=== PATIENT | female | born 1935 | race Caucasian/White ===

== ENCOUNTER 2018-03-28 12:07 | Inpatient (IN) | payer MEDICARE, BC ==
[~2018-03-28] VITALS: Ht 162.6 cm; Wt 88.6 kg
[2018-03-28] VITALS (7 sets, daily range): BP systolic 146–226; BP diastolic 46–105
[~2018-03-28 12:07] MED LIST: ALENDRONATE70 MG PO; ARTHRITIS PAIN650 MG PO; ATENOLOL25 MG PO; CALCIUM600 M2 PO; FLOVENT HFA110 MCG IN; FOLIC ACID1 MG PO; FUROSEMIDE20 MG PO; INDAPAMIDE2.5 MG PO; LOSARTAN POT50 MG PO; MELOXICAM15 MG PO; METHOTREXATE25 MG/ML IJ; MULT VITAMIN PO; TRAMADOL HCL50 MG PO; VESICARE5 MG PO
--- NOTE | 2018-03-28 12:09 | NUR ---
PT IMMEDIATELY TO CT FOR CT BRAIN D/T FALL STRIKING BACK OF HEAD AND ON BLOOD THINNER. PT ALERT AND ORIENTED X3. MAEW.DENIES LOSS OF SENSATION
--- NOTE | 2018-03-28 12:37 | NUR ---
PT ALERT AND RESPONSIVE. C/O PAIN TO POSTERIOR SCALP, LT ELBOW AND ACROSS POSTERIOR SHOULDERS
--- NOTE | 2018-03-28 13:28 | NUR ---
PT RESTING SUPINE IN BED WITH HOB ELEVATED WARM BLANKET FOR COMFORT. BUSINESS PROCESS COORDINATOR AWARE OF BP TREND AND WATCHFUL OF BP. PT HAS "SORENESS TO TOP OF SHOULDERS" AND POSTERIOR SCALP
[2018-03-28 13:33] LABS: HEMATOCRIT 42.7 % (37.0-47.0); IMMATURE GRANULOCYTES 0.7 % (0.0-5.0); MEAN CELL VOLUME 93.6 fL CALC (80.0-100.0); MEAN CORPUSCULAR HGB 30.7 pG CALC (26.0-32.0); MEAN CORPUSCULAR HGB CONC 32.8 g/L CALC (32.0-36.0); NEUT# 5.69 thou/uL (2.00-7.15); RED BLOOD COUNT 4.56 mill/uL (4.20-5.60); RED CELL DISTRI WIDTH 15.1 % (11.5-15.5)
[2018-03-28 13:42] LABS: ALBUMIN 4.3 g/dL (3.2-5.0); ALKALINE PHOSPHATASE 107 u/l (38-126); ANION GAP 15 (6-22 (CALC)); BILIRUBIN, TOTAL 0.7 mg/dL (0.0-1.4); BUN 19 mg/dL (8-23); BUN/CREATININE RATIO 32 (12-20 (CALC)); CARBON DIOXIDE 28 mmol/l (22-30); CHLORIDE 96 mmol/l (95-108); CREATININE 0.6 mg/dL (0.5-1.0); GFR > 60 ML/MIN (>=60 (CALC)); GFR FOR AFR.AMER. > 60 ML/MIN (>=60 (CALC)); MAGNESIUM 1.7 mg/dL (1.6-2.3); POTASSIUM 3.8 mmol/l (3.5-5.1); SGOT/AST 27 u/l (9-36); SODIUM 135 mmol/l (137-146); TOTAL PROTEIN 7.6 g/dL (6.3-8.2)
[2018-03-28 13:53] LABS: MYOGLOBIN 58 ng/mL (0 - 62)
[2018-03-28] MEDS ORDERED: TRAMADOL HCL50 MG PO (14:10)
[2018-03-28] MEDS ORDERED: VITAMIN B-12500 MCG PO (14:15)
[2018-03-28] MEDS ORDERED: FAMOTIDINE20 M1 PO (14:16)
[2018-03-28] MEDS ORDERED: SINGULAIR10 MG PO (14:17)
[2018-03-28] MEDS ORDERED: ATORVASTATIN CA10 MG PO (14:18)
[2018-03-28] MEDS ORDERED: COLACE100 MG PO (14:19)
--- NOTE | 2018-03-28 14:20 | NUR ---
PT CONTINUES TO BE ALERT AND APPROPRIATE,JOAN. NEURO WNL.
[2018-03-28] MEDS ORDERED: OXYBUTYNIN5 M1 PO (14:22)
[2018-03-28] MEDS ORDERED: PLAVIX75 MG PO (14:23)
[2018-03-28] MEDS ORDERED: FLOVENT DI50 MCG/BLI IN (14:25)
[2018-03-28] MEDS ORDERED: NITROFURANTOIN100 MG PO (14:26)
[2018-03-28] MEDS ORDERED: VITAMIN D31000 UNI1 PO (14:29)
[2018-03-28] MEDS ORDERED: METO25TAB PO (14:32)
[2018-03-28] MEDS ORDERED: KLOR-CON 1010 MEQ PO (14:33)
--- NOTE | 2018-03-28 15:02 | NUR ---
PT AWARE OF ADMIT ANND AGREEABLE TO SAME. WARM BLANKET FOR COMFORT
--- NOTE | 2018-03-28 15:20 | NUR ---
ASSISTED PT WITH REPOSITIONING D/T "CRAMP TO LT CALF". PT MORE COMFORTABLE AFTER STRETCHING LT FOOT.
--- NOTE | 2018-03-28 16:00 | NUR ---
CALLED REPOR TO [facility]
--- NOTE | 2018-03-28 16:15 | NUR ---
PT TRANSPORTED TO ICU VIA STRETCHER IN STABLE CONDITION ON CONTINUOUS MILLED RICE BROKER.
--- NOTE | 2018-03-28 16:21 | NUR ---
female pt received to ICU 5 (med surg overflow) via stretcher accompanied by Aleksandar Pulliam RN in stable condition; ambulatory to bed with steady gait; pt denies lightheadedness or dizziness; gait weak but noted steady; pt c/c of "a cold" for a couple weak and lightheadedness today resulting in fall hitting back of head; denies any n/v; pt with complaints of headache, neck pain, shoulder pain; alert and oriented; resp even and unlabored; lungs clear; skin color wnl; ra; bending press operator moist/loose cough; hr irreg; doppler pedal pulses; 2+ edema noted to ble; sr pac/pvc on monitor; abd soft with bs present; no bm noted per jingle writer; no urine to inspect at this time; pt admits to occasional urinary incont; brief cdi; #20 flushed and patent to rac; no redness or edema noted at site; plan of care/meds/ fall prec explained; call light within reach; will continue to monitor
--- NOTE | 2018-03-28 17:00 | NUR ---
Dr Amor notified per typewriter operator automatic of elevated bp; also informed per Xochilt Santiago med rec, pt has received toprol, cozaar and plavix; orders to be changed/placed
--- NOTE | 2018-03-28 17:13 | NUR ---
orthostatic bp's obtained and charted
--- NOTE | 2018-03-28 17:18 | NUR ---
pt transported to ct scan via wc accompanied by this health underwriter in stable condition;
--- NOTE | 2018-03-28 17:30 | NUR ---
pt returned to unit via wc accompanied by this policy writer typist in stable condition; monitoring attachments explained and reconnected
--- NOTE | 2018-03-28 18:04 | NUR ---
awake in bed; medicated with hydralazine iv for bp of 195/89; sr/pvcs on monitor; pt admits to slight back pain; repositioned; eating dinner; iv flushed and patent; call light within reach; will continue to monitor
[2018-03-28 18:32] LABS: URINE BILIRUBIN - DIPSTICK NEGATIVE (NEGATIVE); URINE BLOOD DIPSTICK NEGATIVE (NEGATIVE); URINE COLOR YELLOW; URINE GLUCOSE - DIPSTICK NEGATIVE (NEGATIVE); URINE KETONE NEGATIVE (NEGATIVE); URINE LEUK ESTERASE TRACE (NEGATIVE); URINE NITRITE - DIPSTICK NEGATIVE (Negative); URINE PROTEIN - DIPSTICK TRACE mg/dL (NEG-TRACE); URINE UROBILINOGEN - DIPSTICK 0.2 E.U./dL (0.2)
--- NOTE | 2018-03-28 19:10 | NUR ---
Dr Amor notified per handbook writer of pt complaints of pain; orders received and on chart
--- NOTE | 2018-03-28 19:15 | NUR ---
BEDSIDE REPORT RECEIVED FROM [facility]. PT RESTING IN BED SEMI FOWLERS; ALERT AND ORIENTED. C/O SEVERE PAIN TO NECK, UPPER BACK, AND BILATERAL SHOULDERS. DR. HAQUE RESTARTED HOME MED TRAMADOL 50MG; WILL ADMINISTER WHEN PROFILED. RESPIRATIONS EVEN AND UNLABORED ON ROOM AIR. PLAN OF CARE REVIEWED. PT ENCOURAGED TO VERBALIZE CONCERNS. STATES UNDERSTANDING. SAFETY MEASURES IN PLACE. CALL LIGHT WITHIN REACH.
--- NOTE | 2018-03-28 19:30 | NUR ---
BEDSIDE REPORT RECEIVED FROM [facility]. PT SITTING UP IN BED; ALERT AND ORIENTED. RESPIRATIONS EVEN AND UNLABORED ON ROOM AIR. STATES THAT HER ABDOMINAL PAIN IS COMING BACK; STATES THAT SHE WILL CALL WHEN SHE WANTS PAIN MEDICATION. PLAN OF CARE DISCUSSED. PT ENCOURAGED TO VERBALIZE CONCERNS. STATES UNDERSTANDING. SAFETY MEASURES IN PLACE. CALL LIGHT WITHIN REACH.
--- NOTE | 2018-03-28 20:06 | NUR ---
PT NOW REQUESTING PAIN AND NAUSEA MEDICATIONS.
--- NOTE | 2018-03-28 21:11 | NUR ---
PT UP TO BSC TO VOID; BRIEF PLACED PER REQUEST FOR URINARY INCONTINENCE. HS BLOOD PRESSURE MEDICATION ADMINISTERED. PRESSURE IS CURRENTLY 146/46 PULSE 84. PT STATES THAT WARM COMPRESS AND TRAMADOL ARE EFFECTIVE FOR NECK AND UPPER BACK PAIN; REQUESTS ANOTHER HEAT PACK BEFORE SLEEP.
[2018-03-29] VITALS (9 sets, daily range): BP systolic 144–193; BP diastolic 59–78
--- NOTE | 2018-03-29 00:20 | NUR ---
PT ASLEEP AT THIS TIME WITH NO SIGNS OF DISTRESS. RESPIRATIONS EVEN AND UNLABORED ON ROOM AIR. IV SITE APPEARS HEALTHY AND FLUSHES. PT STAND BY ASSIST TO BSC WITH OCCASIONAL INCONTINENCE. SINUS RHYTHM WITH PVC'S ON TELEMETRY. SAFETY MEASURES IN PLACE. CALL LIGHT WITHIN REACH.
--- NOTE | 2018-03-29 04:08 | NUR ---
PT RESTING IN BED WITH EYES CLOSED; AWAKENS SPONTANEOUSLY. NO ACUTE CHANGES IN CONDITION THROUGHOUT THE NIGHT. NO EPISODES OF SYNCOPE.
[2018-03-29 05:40] LABS: HEMATOCRIT 39.5 % (37.0-47.0); HEMOGLOBIN 13.3 g/dl (12.0-16.0); IMMATURE GRANULOCYTES 0.3 % (0.0-5.0); MEAN CELL VOLUME 92.5 fL CALC (80.0-100.0); MEAN CORPUSCULAR HGB 31.1 pG CALC (26.0-32.0); MEAN CORPUSCULAR HGB CONC 33.7 g/L CALC (32.0-36.0); NEUT# 5.7 thou/uL (2.00-7.15); RED BLOOD COUNT 4.27 mill/uL (4.20-5.60); RED CELL DISTRI WIDTH 14.8 % (11.5-15.5)
[2018-03-29 06:07] LABS: ALKALINE PHOSPHATASE 86 u/l (38-126); AMYLASE < 30 u/l (30-110); ANION GAP 13 (6-22 (CALC)); BILIRUBIN, TOTAL 0.7 mg/dL (0.0-1.4); BUN 12 mg/dL (8-23); BUN/CREATININE RATIO 27 (12-20 (CALC)); CARBON DIOXIDE 27 mmol/l (22-30); CHLORIDE 97 mmol/l (95-108); CREATININE 0.4 mg/dL (0.5-1.0); GFR > 60 ML/MIN (>=60 (CALC)); GFR FOR AFR.AMER. > 60 ML/MIN (>=60 (CALC)); LIPASE 28 u/l (23-300); MAGNESIUM 1.5 mg/dL (1.6-2.3); POTASSIUM 3.6 mmol/l (3.5-5.1); SGOT/AST 24 u/l (9-36); SODIUM 133 mmol/l (137-146); TOTAL PROTEIN 6.2 g/dL (6.3-8.2)
[2018-03-29 06:08] LABS: ALBUMIN 3.4 g/dL (3.2-5.0)
--- NOTE | 2018-03-29 06:22 | NUR ---
PT REQUESTS TO GET DRESSED AND WALK AROUND; ALSO REQUESTS PHONE TO CALL THE [facility]. PORTABLE PHONE GIVEN.
--- NOTE | 2018-03-29 07:24 | NUR ---
pt awake in bed; no apparent distress noted; assessment completed at this time; pt alert and oriented; denies pain at current; no n/v noted; no neuro deficits noted; resp even and unlabored; lungs clear; skin color pale; ra; hr irreg; strong pulses; 1+ edema noted to ble; sr with frequent pvc on monitor; abd soft with bs present; no bm noted per narrative writer; pt admits to voiding without pain or burning; voiding clear yellow urine; bsc; #20 flushed and patent to rac; no redness or edema noted at site; oral care per self; repositioned; bp elevated; plan of care/ am meds explained; call light within reach; will continue to monitor
--- NOTE | 2018-03-29 07:42 | NUR ---
bp elevated; am meds administered at this time; will continue to monitor
--- NOTE | 2018-03-29 08:02 | NUR ---
telegraphic typewriter installer spoke with Aleena Bermudez in regards to questionable egg allergy; Pharm informed of pt concerns; pt states eggs causes diarrhea but she is able to eat them if they are mixed or cooked in something; allergy not to be listed per Pharm
--- NOTE | 2018-03-29 10:07 | NUR ---
awake in bed; offers no complaints; no apparent distress noted; denies pain at current; iv intact and patent; sr with freq pvc on monitor; call light within reach; will continue to monitor
--- NOTE | 2018-03-29 10:50 | NUR ---
Dr Amor present at bedside to assess pt and discuss plan of care
--- NOTE | 2018-03-29 11:30 | NUR ---
16 Fr inserted x2 attempts using optoelectronic technician; immed return of clear dark yellow urine/ 600cc; ua sample sent; cath aggarwal placed; will continue to monitor
--- NOTE | 2018-03-29 11:49 | NUR ---
Dr Pena notified of consult by Dr Amor
[2018-03-29 12:00] LABS: URINE BILIRUBIN - DIPSTICK NEGATIVE (NEGATIVE); URINE BLOOD DIPSTICK NEGATIVE (NEGATIVE); URINE COLOR YELLOW; URINE GLUCOSE - DIPSTICK NEGATIVE (NEGATIVE); URINE KETONE NEGATIVE (NEGATIVE); URINE LEUK ESTERASE NEGATIVE (Negative); URINE NITRITE - DIPSTICK NEGATIVE (Negative); URINE PROTEIN - DIPSTICK TRACE mg/dL (NEG-TRACE); URINE SPECIFIC GRAVITY 1.015; URINE UROBILINOGEN - DIPSTICK 0.2 E.U./dL (0.2)
[2018-03-29 12:01] LABS: URINE CLARITY CLEAR
--- NOTE | 2018-03-29 12:30 | NUR ---
pt awake in bed; no apparent distress noted; pt offers no complaints; iv patent; abt infusing without complication; no redness or edema noted at site; castorena to gravity draining clear yellow urine; pt was not satified was lunch; peanut butter and jelly provided as per request; po fluids provided; will continue to monitor
--- NOTE | 2018-03-29 13:09 | NUR ---
warm compress applied to upper back for complaints of pain
--- NOTE | 2018-03-29 13:34 | NUR ---
daughter Raina called per this clinical writer as per request; daughter updated on poc including castorena insertion, bumex, abt for pneumonia; portable phone given to pt; will continue to monitor
--- NOTE | 2018-03-29 14:11 | NUR ---
awake in bed; offers no complaints; no apparent distress noted; iv intact; castorena to gravity; sr/pvc on monitor; call light within reach; will continue to monitor
--- NOTE | 2018-03-29 16:05 | NUR ---
awake in bed; no apparent distress noted; pt offers no complaints; iv intact; no redness or edema noted at site; castorena to gravity; sr/pvc on monitor; vs obtained; pbx technician present at bedside; call light within reach; will continue to monitor
--- NOTE | 2018-03-29 17:52 | NUR ---
awake in bed; offers no complaints; ate minimal dinner; pt states no apetite; iv intact; castorena to gravity; deny needs; call light within reach
--- NOTE | 2018-03-29 19:00 | NUR ---
PT SITTING UP IN BED WATCHING TV. PT IS ALERT AND ORIENTED X3. SHIFT ASSESSMENT COMPLETED AT THIS TIME. PLAN OF CARE REVIEWED WITH PATIENT. CALL LIGHT IN REACH. WILL CONTINUE TO MONITOR.
--- NOTE | 2018-03-29 21:15 | NUR ---
PT IS WATCHING TV W/LIGHTS ON LOW, NO S/O DISTRESS NOTED, DENIES ANY NEEDS AT THIS TIME. WILL CONTINUE TO MONITOR.
--- NOTE | 2018-03-29 22:32 | NUR ---
PT MEDICATED FOR BP 192/80 MANUAL, ORDERS PROVIDE. WILL CONTINUE TO MONITOR. FINN CATHETER PATENT AND DRAINING CLEAR YELLOW URINE. ASSISTED WITH PO FLUIDS, PT DENIES ANY OTHER NEEDS. CALL LIGHT AT SIDE.
[2018-03-30] VITALS (7 sets, daily range): BP systolic 133–176; BP diastolic 51–84
--- NOTE | 2018-03-30 00:10 | NUR ---
PT V/S ASSESSED, BP IS DOWN TO 160'S/80'S, WILL CONTINUE TO MONITOR. PT DENIES ANY OTHER NEEDS, PT ASSISTED IN REPOSITIONING IN BED. FINN CATHETER APPEARS PATENT AND TO BE DRAINING CLEAR YELLOW URINE.
--- NOTE | 2018-03-30 01:42 | NUR ---
PT APPEARS TO BE SLEEPING, NO S/O DISTRESS NOTED.
--- NOTE | 2018-03-30 04:49 | NUR ---
PT IV SITE DISLODGED, NEW SITE ACCESSED AND PT MEDICATED FOR BP AT THIS TIME.
[2018-03-30 06:03] LABS: HEMATOCRIT 39.3 % (37.0-47.0); HEMOGLOBIN 13.2 g/dl (12.0-16.0); IMMATURE GRANULOCYTES 0.5 % (0.0-5.0); MEAN CELL VOLUME 93.1 fL CALC (80.0-100.0); MEAN CORPUSCULAR HGB 31.3 pG CALC (26.0-32.0); MEAN CORPUSCULAR HGB CONC 33.6 g/L CALC (32.0-36.0); NEUT# 6.2 thou/uL (2.00-7.15); RED BLOOD COUNT 4.22 mill/uL (4.20-5.60)
[2018-03-30 06:21] LABS: ALBUMIN 3.4 g/dL (3.2-5.0); ALKALINE PHOSPHATASE 81 u/l (38-126); AMYLASE < 30 u/l (30-110); ANION GAP 13 (6-22 (CALC)); BILIRUBIN, TOTAL 1.1 mg/dL (0.0-1.4); BUN 12 mg/dL (8-23); BUN/CREATININE RATIO 30 (12-20 (CALC)); CARBON DIOXIDE 28 mmol/l (22-30); CHLORIDE 93 mmol/l (95-108); CREATININE 0.4 mg/dL (0.5-1.0); GFR > 60 ML/MIN (>=60 (CALC)); GFR FOR AFR.AMER. > 60 ML/MIN (>=60 (CALC)); LIPASE 20 u/l (23-300); MAGNESIUM 1.5 mg/dL (1.6-2.3); POTASSIUM 3.6 mmol/l (3.5-5.1); SGOT/AST 40 u/l (9-36); SODIUM 130 mmol/l (137-146); TOTAL PROTEIN 6.2 g/dL (6.3-8.2)
--- NOTE | 2018-03-30 07:15 | NUR ---
pt awake in bed; no apparent distress noted; pt offers no complaints; assessment completed at this time; pt alert; denies pain/ sob at current; no n/v noted; resp even and unlabored; lungs clear with rhonchi in bases; skin color pale; o2 per nc at 2L; hr irreg; strong pulses; 1+ edema noted to ble; sr freq pvc on monitor; abd soft with bs present; no bm noted per development writer; castorena to gravity draining clear dk yellow urine; cath strap intact; #22 in rh saline locked; no redness or edema noted at site; plan of care/ am meds explained; call light within reach; will continue to monitor
--- NOTE | 2018-03-30 09:20 | NUR ---
pt with complaints of upset stomach/nausea; emesis bag provded; thick clear phlegm noted to bag; pt refusing chair at this time; will continue to monitor
--- NOTE | 2018-03-30 09:38 | NUR ---
daughter Raina called this television script writer; passcode vierified; update provided; will return call to Raina with poc after MD rounds
--- NOTE | 2018-03-30 10:05 | NUR ---
awake in bed; admits to feeling better since coughing up sputum; up to chair; iv intact; sr/pvc on monitor; castorena to gravity; call light within reach; will continue to monitor
--- NOTE | 2018-03-30 11:15 | NUR ---
Dr Amor present at bedside to assess pt and discuss plan of care;
--- NOTE | 2018-03-30 12:10 | NUR ---
back to bed per pt request; no apparent distress noted; resp even and unlabored; iv flushed and patent; abt infusing without complication; no redness or edema noted at site; sr/pvc on monitor; castorena to gravity; call light within reach; will continue to monitor
--- NOTE | 2018-03-30 12:26 | NUR ---
daughter Raina called per play writer as per request; updated on plan of care
--- NOTE | 2018-03-30 14:00 | NUR ---
awake in bed; offers no complaints; sr/pvc on monitor; call light within reach; will continue to monitor
--- NOTE | 2018-03-30 15:08 | NUR ---
per Dr Pena's office, Dr Pena will see pt tomorrow
--- NOTE | 2018-03-30 15:37 | NUR ---
removed removed as per pt request; clear daniel urine noted to bag
--- NOTE | 2018-03-30 16:15 | NUR ---
awake in bed; no apparent distress noted; pt offers no complaints; iv intact; no redness or edema noted; sr/pvc on monitor; call light within reach; will continue to monitor
--- NOTE | 2018-03-30 18:00 | NUR ---
awake in bed eating dinner; offers no complaints; no apparent distress noted; call light within reach
--- NOTE | 2018-03-30 21:10 | NUR ---
awake. denies distress. no neuro changes. monitoring coordinator shows sinus rhythm freq pvcs. #22 rt wrist saline lock. po fluids taken well. hnv as of yet. fall precautions cont.
--- NOTE | 2018-03-30 21:40 | NUR ---
up to bsc. voided well.
--- NOTE | 2018-03-30 23:58 | NUR ---
eyes closed. no distress. monitor worker shows sinus rhythm freq pvcs.
[2018-03-31] VITALS (8 sets, daily range): BP systolic 128–188; BP diastolic 3–87
--- NOTE | 2018-03-31 02:00 | NUR ---
resting quietly. resps even & unlabored. no apparent distress.
--- NOTE | 2018-03-31 04:00 | NUR ---
eyes closed. no distress. monitoring coordinator shows sinus rhythm freq pvcs.
--- NOTE | 2018-03-31 05:10 | NUR ---
lab here. blood drawn.
[2018-03-31 05:52] LABS: HEMATOCRIT 38.8 % (37.0-47.0); HEMOGLOBIN 13.3 g/dl (12.0-16.0); IMMATURE GRANULOCYTES 0.4 % (0.0-5.0); MEAN CELL VOLUME 91.1 fL CALC (80.0-100.0); MEAN CORPUSCULAR HGB 31.2 pG CALC (26.0-32.0); MEAN CORPUSCULAR HGB CONC 34.3 g/L CALC (32.0-36.0); NEUT# 6.57 thou/uL (2.00-7.15); RED BLOOD COUNT 4.26 mill/uL (4.20-5.60); RED CELL DISTRI WIDTH 14.5 % (11.5-15.5)
[2018-03-31 06:22] LABS: ALBUMIN 3.4 g/dL (3.2-5.0); ALKALINE PHOSPHATASE 74 u/l (38-126); ANION GAP 14 (6-22 (CALC)); BILIRUBIN, TOTAL 0.7 mg/dL (0.0-1.4); BUN 17 mg/dL (8-23); BUN/CREATININE RATIO 36 (12-20 (CALC)); CARBON DIOXIDE 26 mmol/l (22-30); CHLORIDE 92 mmol/l (95-108); CREATININE 0.5 mg/dL (0.5-1.0); GFR > 60 ML/MIN (>=60 (CALC)); GFR FOR AFR.AMER. > 60 ML/MIN (>=60 (CALC)); MAGNESIUM 1.6 mg/dL (1.6-2.3); POTASSIUM 3.5 mmol/l (3.5-5.1); SGOT/AST 23 u/l (9-36); SODIUM 129 mmol/l (137-146); TOTAL PROTEIN 6.1 g/dL (6.3-8.2)
--- NOTE | 2018-03-31 07:51 | NUR ---
ASSESSMENT IS COMPLETED: IV SITE IS FREE FROM REDNESS OR EDMEA HR IS REG,PULSES ARE STRONG X4, ABD IS SOFT WITH ACTIVE BS. BREATH SOUNDS ARE CLEAR AND DIMINSHED. HAS A COUGH SOUNDS MORE IN THE THROAT. CONTINUE TO OSBERVE AND MONITOR.
--- NOTE | 2018-03-31 10:47 | NUR ---
PT'S DAUGHTER CALLED TO INQUIRE HOW HER MOTHER IS. EXPLAINED DR IS HERE AND MAIN C/O COUGH. WILL CALL WHEN FIND OUT WHAT THE PLAN IS.
--- NOTE | 2018-03-31 12:00 | NUR ---
PT IS RELAXING IN BED WITH NO DISTRESS NOTED. IV SITE IS FREE FROM REDNESS OR EDEMA. CONITNUE TO OBSERVE AND MONITOR.
--- NOTE | 2018-03-31 16:00 | NUR ---
PT IS RELAXING IN THE CHAIR, NO DISTRESS NOTED. IV SITE IS FREE FROM REDNESS OR EDEMA. CONTINUE TO OBSERVE AND MONITOR.
--- NOTE | 2018-03-31 16:48 | NUR ---
TRANSPORTED PT TO MED SURG, VIA WC WITH MACHINE CLERICAL VERIFIER ACCOMPANYING. IV SITE INTACT. CONTINUE TO OBSERVE AND MONITOR.
--- NOTE | 2018-03-31 16:52 | NUR ---
SPOKE WITH PT'S DAUGHTER TO INFORM THAT PT WASS MOVED TO ROOM 281
--- NOTE | 2018-03-31 17:03 | NUR ---
PT ARRIVED TO FLOOR FROM ICU VIA W/C ACCOMPANIED BY PAULETTE CANAS; WT AND VITALS OBTAINED; PT A/O; DENIES ANY PAIN; LUNGS DIMINISHED IN BASES; IRR HEART BEAT; PULSES STRONG; ACTIVE BOWEL SOUNDS; BM TODAY; # 22RH, NS@75CC/HR; IV SITE APPEARS HEALTHY; 1+ EDEMA TO BLE; PRODUCTIVE COUGH NOTED BUT NO SPUTUM; SAFETY PRECAUTION REINFORCE; CALL RDZ IN REACH.
--- NOTE | 2018-03-31 19:00 | NUR ---
RECEIVED REPORT FROM DAY NURSE. PT RESTING IN BED WATCHING TV. NO NEEDS AT THIS TIME. CALL RDZ IN REACH. WILL CONTINUE TO MONITOR.
--- NOTE | 2018-03-31 21:21 | NUR ---
PT USED BATHROOM CALL RDZ TO BE ASSISTED BACK TO BED. AMBULATES WITH WALKER. PT IS A&O x3. ASSESMENT COMPLETED AT THIS TIME. LUNG SOUNDS CLEAR/DIMINISHED, BOWEL SOUNDS ACTIVE, HEART RATE NORMAL, PTODUCTIVE COUGH NOTED. NO SWELLING OR EDEMA NOTED. NO NEEDS FROM PT AT THIS TIME. CALL RDZ IN REACH. WILL CONTINUE TO MONITOR.
--- NOTE | 2018-04-01 | NUR ---
PT RESTING QUIETLY IN BED NO S/S OF DISTRESS NOTED. CALL RDZ IN REACH. WILL CONTINUE TO MONITOR.
[2018-04-01 04:00] VITALS: BP 174/85
--- NOTE | 2018-04-01 04:00 | NUR ---
PT C/O NOT BEING ABLE TO SLEEP LAST NIGHT. PT REPOSITIONED IN BED. RESTING NOW WITH EYES CLOSED. CALL RDZ IN REACH. WILL CONTINUE TO MONITOR.
[2018-04-01 04:05] VITALS: BP 190/88
[2018-04-01 04:10] VITALS: BP 178/87
--- NOTE | 2018-04-01 06:53 | NUR ---
PT MEDICATED FOR BP 169/76, HR80
--- NOTE | 2018-04-01 07:00 | NUR ---
BC CHANGE REPORT, PT AWAKE ALERT AND ORIENTED SITTING UP IN BED, STATED SHE FEELS MUCH BETTER TODAY THAN SHE DID YESTERDAY BUT STATED SHE WAS VERY UNCOMFORTABLE IN BED, ASSISTED TO RECLINER, STATED SHE FELT MUCH MOR COMFORTABLE, SET UP FOR MEAL, IVF INFUSING, TELE MONITOR IN PLACE, CALL RDZ IN REACH.
[2018-04-01 07:04] LABS: HEMOGLOBIN 13.1 g/dl (12.0-16.0); IMMATURE GRANULOCYTES 0.6 % (0.0-5.0); MEAN CELL VOLUME 90.5 fL CALC (80.0-100.0); MEAN CORPUSCULAR HGB 31.2 pG CALC (26.0-32.0); MEAN CORPUSCULAR HGB CONC 34.5 g/L CALC (32.0-36.0); NEUT# 7.49 thou/uL (2.00-7.15); RED BLOOD COUNT 4.2 mill/uL (4.20-5.60); RED CELL DISTRI WIDTH 14.5 % (11.5-15.5)
[2018-04-01 07:23] LABS: ALBUMIN 3.4 g/dL (3.2-5.0); ALKALINE PHOSPHATASE 80 u/l (38-126); ANION GAP 14 (6-22 (CALC)); BILIRUBIN, TOTAL 0.4 mg/dL (0.0-1.4); BUN 19 mg/dL (8-23); BUN/CREATININE RATIO 39 (12-20 (CALC)); CARBON DIOXIDE 25 mmol/l (22-30); CHLORIDE 95 mmol/l (95-108); CREATININE 0.5 mg/dL (0.5-1.0); GFR > 60 ML/MIN (>=60 (CALC)); GFR FOR AFR.AMER. > 60 ML/MIN (>=60 (CALC)); MAGNESIUM 1.8 mg/dL (1.6-2.3); POTASSIUM 3.9 mmol/l (3.5-5.1); SGOT/AST 20 u/l (9-36); SODIUM 130 mmol/l (137-146); TOTAL PROTEIN 6.1 g/dL (6.3-8.2)
[2018-04-01 08:12] VITALS: BP 153/77
[2018-04-01 09:49] VITALS: BP 124/55
[2018-04-01 11:00] VITALS: BP 129/84
--- NOTE | 2018-04-01 12:00 | NUR ---
HAVING MEAL BUT STATED SHE IS NOT HUNGRY AND WILL ONLY HAVE SMALL PORTION, ALL NEEDS ADDRESSED, CALL RDZ IN REACH.
[2018-04-01] MEDS ORDERED: MEDDOSEPAK PO (14:55)
[2018-04-01] MEDS ORDERED: LEVAQUIN750 M1 PO (14:55)
--- NOTE | 2018-04-01 15:02 | NUR ---
Discharge instructions given. Patient verbalizes understanding of same. Discharged in good condition via Wheelchair to ACLF with *Other. All belongings sent with pt. STAFF FROM [facility] RECEIVED PT TO TRANSPORT HOME.
== END 2018-04-01 15:00 | DRG 190 ==
LOC: ED 12:07 → ED-I 15:04 → ED 15:29 → ICU 15:30 → MS2 03-31 16:46
PROVIDERS: ADMIT Internal Medicine Nephrology; ATTEND Internal Medicine Nephrology
PROC: 0T9B70Z Drainage of Bladder with Drainage Device, Via Natural or Artificial Opening (ICD-10-PCS; principal; 2018-03-29)
DX: J44.1 Chronic obstructive pulmonary disease with (acute) exacerbation (principal); J18.9 Pneumonia, unspecified organism; J44.0 Chronic obstructive pulmonary disease with (acute) lower respiratory infection; I49.3 Ventricular premature depolarization; I10 Essential (primary) hypertension; M06.9 Rheumatoid arthritis, unspecified; E78.5 Hyperlipidemia, unspecified; E55.9 Vitamin D deficiency, unspecified; R32 Unspecified urinary incontinence; J84.10 Pulmonary fibrosis, unspecified; E66.9 Obesity, unspecified; R09.02 Hypoxemia; R06.89 Other abnormalities of breathing; Y95 Nosocomial condition; Z68.34 Body mass index [BMI] 34.0-34.9, adult; Z79.02 Long term (current) use of antithrombotics/antiplatelets; Z86.73 Personal history of transient ischemic attack (TIA), and cerebral infarction without residual deficits; Z79.899 Other long term (current) drug therapy

== ENCOUNTER 2018-08-18 05:41 | Emergency (ER) | payer MEDICARE, BC ==
[~2018-08-18] VITALS: Ht 162.6 cm; Wt 91.8 kg
[~2018-08-18 05:41] MED LIST changes: +ATORVASTATIN CA10 MG PO; +COLACE100 MG PO; +FAMOTIDINE20 M1 PO; +FLOVENT DI50 MCG/BLI IN; +KLOR-CON 1010 MEQ PO; +LEVAQUIN750 M1 PO; +MEDDOSEPAK PO; +METO25TAB PO; +NITROFURANTOIN100 MG PO; +OXYBUTYNIN5 M1 PO; +PLAVIX75 MG PO; +SINGULAIR10 MG PO; +VITAMIN B-12500 MCG PO; +VITAMIN D31000 UNI1 PO
[2018-08-18] MEDS ORDERED: LORATADINE10 M1 PO (06:00)
[2018-08-18] MEDS ORDERED: MACRODANTIN50 MG PO (06:07)
[2018-08-18] MEDS ORDERED: GABAPENTIN100 MG PO (06:13)
[2018-08-18] MEDS ORDERED: SPIRONOLACTONE50 MG PO (06:17)
[2018-08-18] MEDS ORDERED: KEFLEX500 MG PO (06:19)
[2018-08-18 07:27] LABS: HEMATOCRIT 37.1 % (37.0-47.0); HEMOGLOBIN 12.1 g/dl (12.0-16.0); IMMATURE GRANULOCYTES 0.7 % (0.0-5.0); MEAN CELL VOLUME 91.2 fL CALC (80.0-100.0); MEAN CORPUSCULAR HGB 29.7 pG CALC (26.0-32.0); MEAN CORPUSCULAR HGB CONC 32.6 g/L CALC (32.0-36.0); NEUT# 6.76 thou/uL (2.00-7.15); RED BLOOD COUNT 4.07 mill/uL (4.20-5.60); RED CELL DISTRI WIDTH 16.2 % (11.5-15.5)
[2018-08-18 07:42] LABS: BUN 8 mg/dL (8-23); BUN/CREATININE RATIO 19 (12-20 (CALC)); CARBON DIOXIDE 28 mmol/l (22-30); CHLORIDE 92 mmol/l (95-108); CREATININE 0.4 mg/dL (0.5-1.0); GFR > 60 ML/MIN (>=60 (CALC)); GFR FOR AFR.AMER. > 60 ML/MIN (>=60 (CALC)); SODIUM 130 mmol/l (137-146)
[2018-08-18 07:43] LABS: ANION GAP 15 (6-22 (CALC)); POTASSIUM 4.5 mmol/l (3.5-5.1)
[2018-08-18 08:40] VITALS: BP 178/87
== END 2018-08-18 08:40 | disposition home or self-care (01) ==
LOC: ED 05:41
PROVIDERS: Family Medicine
DX: S06.0X0A Concussion without loss of consciousness, initial encounter (principal); S39.012A Strain of muscle, fascia and tendon of lower back, initial encounter; I10 Essential (primary) hypertension; M06.9 Rheumatoid arthritis, unspecified; W01.0XXA Fall on same level from slipping, tripping and stumbling without subsequent striking against object, initial encounter; Y92.002 Bathroom of unspecified non-institutional (private) residence as the place of occurrence of the external cause; Z86.73 Personal history of transient ischemic attack (TIA), and cerebral infarction without residual deficits; Z79.02 Long term (current) use of antithrombotics/antiplatelets

== ENCOUNTER 2018-09-07 08:55 | Inpatient (IN) | payer MEDICARE, BC ==
[2018-09-07] VITALS (28 sets, daily range): BP systolic 132–181; BP diastolic 56–90
[~2018-09-07] VITALS: Ht 157.5 cm; Wt 89.9 kg
[~2018-09-07 08:55] MED LIST changes: +GABAPENTIN100 MG PO; +KEFLEX500 MG PO; +LORATADINE10 M1 PO; +MACRODANTIN50 MG PO; +SPIRONOLACTONE50 MG PO
[2018-09-07 09:19] LABS: HEMATOCRIT 37.4 % (37.0-47.0); HEMOGLOBIN 12.2 g/dl (12.0-16.0); IMMATURE GRANULOCYTES 0.7 % (0.0-5.0); MEAN CELL VOLUME 92.1 fL CALC (80.0-100.0); MEAN CORPUSCULAR HGB CONC 32.6 g/L CALC (32.0-36.0); NEUT# 6.58 thou/uL (2.00-7.15); RED BLOOD COUNT 4.06 mill/uL (4.20-5.60); RED CELL DISTRI WIDTH 17.6 % (11.5-15.5)
[2018-09-07] MEDS ORDERED: MECLIZINE25 MG PO (09:19)
[2018-09-07 10:07] LABS: ANION GAP 14 (6-22 (CALC)); BUN 10 mg/dL (8-23); BUN/CREATININE RATIO 19 (12-20 (CALC)); CARBON DIOXIDE 30 mmol/l (22-30); CHLORIDE 87 mmol/l (95-108); CREATININE 0.6 mg/dL (0.5-1.0); GFR > 60 ML/MIN (>=60 (CALC)); GFR FOR AFR.AMER. > 60 ML/MIN (>=60 (CALC)); POTASSIUM 3.9 mmol/l (3.5-5.1); SODIUM 128 mmol/l (137-146)
[2018-09-08] VITALS (10 sets, daily range): BP systolic 101–168; BP diastolic 48–81
[2018-09-09 04:40] VITALS: BP 174/74
[2018-09-09 05:59] LABS: HEMATOCRIT 35.9 % (37.0-47.0); HEMOGLOBIN 11.9 g/dl (12.0-16.0); IMMATURE GRANULOCYTES 0.5 % (0.0-5.0); MEAN CELL VOLUME 91.6 fL CALC (80.0-100.0); MEAN CORPUSCULAR HGB 30.4 pG CALC (26.0-32.0); MEAN CORPUSCULAR HGB CONC 33.1 g/L CALC (32.0-36.0); NEUT# 6.65 thou/uL (2.00-7.15); RED BLOOD COUNT 3.92 mill/uL (4.20-5.60); RED CELL DISTRI WIDTH 17.8 % (11.5-15.5)
[2018-09-09 06:04] LABS: ALBUMIN 3.3 g/dL (3.2-5.0); ALKALINE PHOSPHATASE 99 u/l (38-126); ANION GAP 13 (6-22 (CALC)); BILIRUBIN, TOTAL 0.8 mg/dL (0.0-1.4); BUN 10 mg/dL (8-23); BUN/CREATININE RATIO 25 (12-20 (CALC)); CARBON DIOXIDE 27 mmol/l (22-30); CHLORIDE 91 mmol/l (95-108); CREATININE 0.4 mg/dL (0.5-1.0); GFR > 60 ML/MIN (>=60 (CALC)); GFR FOR AFR.AMER. > 60 ML/MIN (>=60 (CALC)); MAGNESIUM 1.5 mg/dL (1.6-2.3); POTASSIUM 3.7 mmol/l (3.5-5.1); SGOT/AST 30 u/l (9-36); SODIUM 127 mmol/l (137-146); TOTAL PROTEIN 6.4 g/dL (6.3-8.2)
[2018-09-09 09:01] VITALS: BP 117/67
[2018-09-09 15:00] VITALS: BP 139/72
[2018-09-09 19:12] VITALS: BP 129/71
[2018-09-10 03:43] VITALS: BP 100/51
[2018-09-10 08:05] VITALS: BP 155/53
[2018-09-10 11:08] LABS: ANION GAP 15 (6-22 (CALC)); BUN 17 mg/dL (8-23); BUN/CREATININE RATIO 32 (12-20 (CALC)); CARBON DIOXIDE 25 mmol/l (22-30); CHLORIDE 90 mmol/l (95-108); CREATININE 0.5 mg/dL (0.5-1.0); GFR > 60 ML/MIN (>=60 (CALC)); GFR FOR AFR.AMER. > 60 ML/MIN (>=60 (CALC)); POTASSIUM 4.1 mmol/l (3.5-5.1); SODIUM 127 mmol/l (137-146)
[2018-09-10 13:04] VITALS: BP 109/63
[2018-09-10 14:55] VITALS: BP 103/51
[2018-09-10 19:04] VITALS: BP 149/52
[2018-09-10 22:27] LABS: URINE BILIRUBIN - DIPSTICK NEGATIVE (NEGATIVE); URINE BLOOD DIPSTICK NEGATIVE (NEGATIVE); URINE COLOR YELLOW; URINE GLUCOSE - DIPSTICK NEGATIVE (NEGATIVE); URINE KETONE NEGATIVE (NEGATIVE); URINE LEUK ESTERASE TRACE (NEGATIVE); URINE NITRITE - DIPSTICK NEGATIVE (Negative); URINE PH 5.5 (4.5-8.0); URINE PROTEIN - DIPSTICK TRACE mg/dL (NEG-TRACE); URINE UROBILINOGEN - DIPSTICK 0.2 E.U./dL (0.2)
[2018-09-11 04:18] VITALS: BP 142/62
[2018-09-11 05:27] LABS: HEMATOCRIT 32.9 % (37.0-47.0); IMMATURE GRANULOCYTES 0.7 % (0.0-5.0); MEAN CELL VOLUME 91.6 fL CALC (80.0-100.0); MEAN CORPUSCULAR HGB 30.6 pG CALC (26.0-32.0); MEAN CORPUSCULAR HGB CONC 33.4 g/L CALC (32.0-36.0); NEUT# 7.38 thou/uL (2.00-7.15); RED BLOOD COUNT 3.59 mill/uL (4.20-5.60); RED CELL DISTRI WIDTH 18.2 % (11.5-15.5)
[2018-09-11 05:46] LABS: ALKALINE PHOSPHATASE 96 u/l (38-126); ANION GAP 13 (6-22 (CALC)); BILIRUBIN, TOTAL 0.7 mg/dL (0.0-1.4); BUN 16 mg/dL (8-23); BUN/CREATININE RATIO 32 (12-20 (CALC)); CARBON DIOXIDE 27 mmol/l (22-30); CHLORIDE 91 mmol/l (95-108); CREATININE 0.5 mg/dL (0.5-1.0); GFR > 60 ML/MIN (>=60 (CALC)); GFR FOR AFR.AMER. > 60 ML/MIN (>=60 (CALC)); MAGNESIUM 1.7 mg/dL (1.6-2.3); POTASSIUM 4.1 mmol/l (3.5-5.1); SGOT/AST 16 u/l (9-36); SODIUM 127 mmol/l (137-146)
[2018-09-11 07:50] VITALS: BP 145/62
[2018-09-11 16:00] VITALS: BP 111/56
[2018-09-11 19:30] VITALS: BP 149/70
[2018-09-12 03:50] VITALS: BP 119/50
[2018-09-12 05:20] LABS: HEMATOCRIT 33.9 % (37.0-47.0); HEMOGLOBIN 11.2 g/dl (12.0-16.0); IMMATURE GRANULOCYTES 0.5 % (0.0-5.0); MEAN CELL VOLUME 91.6 fL CALC (80.0-100.0); MEAN CORPUSCULAR HGB 30.3 pG CALC (26.0-32.0); NEUT# 6.44 thou/uL (2.00-7.15); RED BLOOD COUNT 3.7 mill/uL (4.20-5.60); RED CELL DISTRI WIDTH 18.6 % (11.5-15.5)
[2018-09-12 05:36] LABS: ALBUMIN 3.3 g/dL (3.2-5.0); ALKALINE PHOSPHATASE 95 u/l (38-126); ANION GAP 15 (6-22 (CALC)); BILIRUBIN, TOTAL 0.6 mg/dL (0.0-1.4); BUN 15 mg/dL (8-23); BUN/CREATININE RATIO 29 (12-20 (CALC)); CARBON DIOXIDE 25 mmol/l (22-30); CHLORIDE 92 mmol/l (95-108); CREATININE 0.5 mg/dL (0.5-1.0); GFR > 60 ML/MIN (>=60 (CALC)); GFR FOR AFR.AMER. > 60 ML/MIN (>=60 (CALC)); MAGNESIUM 1.7 mg/dL (1.6-2.3); POTASSIUM 4.4 mmol/l (3.5-5.1); SGOT/AST 17 u/l (9-36); SODIUM 127 mmol/l (137-146); TOTAL PROTEIN 6.4 g/dL (6.3-8.2)
[2018-09-12 08:55] VITALS: BP 112/55
[2018-09-12 09:01] VITALS: BP 112/55
[2018-09-12] MEDS ORDERED: SOD CHLORIDE1 GM PO (14:03)
== END 2018-09-12 14:50 | disposition home health service (06) | DRG 281 ==
LOC: ED 08:55 → ED-I 10:27 → ED 10:52 → ICU 10:53 → MS2 09-08 14:15
PROVIDERS: Family Medicine; Nurse Practitioner Family; ADMIT Internal Medicine Nephrology; ATTEND Internal Medicine Nephrology
DX: I21.4 Non-ST elevation (NSTEMI) myocardial infarction (principal); E22.2 Syndrome of inappropriate secretion of antidiuretic hormone; I49.3 Ventricular premature depolarization; I10 Essential (primary) hypertension; M06.9 Rheumatoid arthritis, unspecified; E78.5 Hyperlipidemia, unspecified; F03.90 Unspecified dementia, unspecified severity, without behavioral disturbance, psychotic disturbance, mood disturbance, and anxiety; D63.8 Anemia in other chronic diseases classified elsewhere; R32 Unspecified urinary incontinence; Z51.5 Encounter for palliative care; Z66 Do not resuscitate; Z86.73 Personal history of transient ischemic attack (TIA), and cerebral infarction without residual deficits; Z87.891 Personal history of nicotine dependence; Z79.899 Other long term (current) drug therapy; Z79.02 Long term (current) use of antithrombotics/antiplatelets
CPT/HCPCS: J1644; J1650

== ENCOUNTER 2018-10-09 08:54 | Inpatient (IN) | payer MEDICARE, BC ==
[~2018-10-09] VITALS: Ht 162.6 cm; Wt 77.7 kg
[~2018-10-09 08:54] MED LIST changes: +MECLIZINE25 MG PO; +SOD CHLORIDE1 GM PO
--- NOTE | 2018-10-09 08:59 | NUR ---
PT TO ROOM 12 VIA EMS STRETCHER, MAX ASSIST TO STRETCHER, PT ALERT AND ORIENTED TO NAMA NAD PLACE BUT UNSURE OF AND YEAR, (NORM PER PREVIOUS VISIT) COMFORT MEASURES PROVIDED, CALLED IN COMPLAINT WAS CP AND "NOT ACTING LIKE HERSELF" PT DENIES CP AT HSI TIME AND DOES NOT RECALL COMPLAINING OF THAT THIS AM.
--- NOTE | 2018-10-09 09:15 | NUR ---
PT HAS MOIST COUGH STATES ITS PRODUCTIVE AT TIMES.
[2018-10-09] MEDS ORDERED: FUROSEMIDE20 MG PO (09:38)
--- NOTE | 2018-10-09 09:56 | NUR ---
O2 OFF FOR ABG REQUESTED BY , PT DENIES WEARING O2 AT HOME.
[2018-10-09 10:16] LABS: HEMATOCRIT 42.7 % (37.0-47.0); HEMOGLOBIN 13.2 g/dl (12.0-16.0); IMMATURE GRANULOCYTES 0.7 % (0.0-5.0); MEAN CELL VOLUME 97.3 fL CALC (80.0-100.0); MEAN CORPUSCULAR HGB 30.1 pG CALC (26.0-32.0); MEAN CORPUSCULAR HGB CONC 30.9 g/L CALC (32.0-36.0); NEUT# 10.5 thou/uL (2.00-7.15); RED BLOOD COUNT 4.39 mill/uL (4.20-5.60)
--- NOTE | 2018-10-09 10:21 | NUR ---
O2 PLACED BACK AT 2L VIA NC, ABG COMPLETED, IVF INFUSING WILL CONTINUE TO MONITOR.
[2018-10-09 11:04] LABS: ALBUMIN 3.9 g/dL (3.2-5.0); ALKALINE PHOSPHATASE 124 u/l (38-126); BILIRUBIN, TOTAL 0.8 mg/dL (0.0-1.4); BUN 31 mg/dL (8-23); BUN/CREATININE RATIO 40 (12-20 (CALC)); CHLORIDE 104 mmol/l (95-108); CREATININE 0.8 mg/dL (0.5-1.0); GFR > 60 ML/MIN (>=60 (CALC)); GFR FOR AFR.AMER. > 60 ML/MIN (>=60 (CALC)); LIPASE 33 u/l (23-300); POTASSIUM 4.2 mmol/l (3.5-5.1); SODIUM 142 mmol/l (137-146); TOTAL PROTEIN 7.5 g/dL (6.3-8.2)
[2018-10-09 11:08] LABS: ANION GAP 18 (6-22 (CALC)); CARBON DIOXIDE 24 mmol/l (22-30); SGOT/AST 41 u/l (9-36)
--- NOTE | 2018-10-09 11:41 | NUR ---
PT STRAIGHT CATH'D USING STERILE TECHNIQUE FOR URINE SPECIMEN, PT TOLERATED WELL, CONTINUES TO HAVE 3-4 EDEMA IN BLE. REPOSITIONED FOR COMFORT, CALL RDZ WITHIN REACH
--- NOTE | 2018-10-09 12:40 | NUR ---
PT FOUND WITH EQUIPMENT OFF AND IV ACCESS OUT, PT REORIENTED, AND CALL RDZ WITHIN REACH
--- NOTE | 2018-10-09 12:46 | NUR ---
SBAR PRINTED TO FLOOR
--- NOTE | 2018-10-09 12:50 | NUR ---
PT HOLLERS OUT AT ANYONE WHO PASSESS THE ROOM, DOES NOT REORIENTE EASILY STATES THAT WE ARE CONSPIRING AGAINST HER AND THAT WE ARE GONNA KILL HER ETC... ATTEMPTS TO REORIENT NOT SUCCESSFUL, UANBLE TO ATTACHMONITORING EQUIPMENT AT THIS TIME PT REFUSES AND BECOMES COMBATIVE WHEN ATTEMPTING TO APPLY.
[2018-10-09 13:12] LABS: URINE BILIRUBIN - DIPSTICK NEGATIVE (NEGATIVE); URINE BLOOD DIPSTICK NEGATIVE (NEGATIVE); URINE COLOR YELLOW; URINE GLUCOSE - DIPSTICK NEGATIVE (NEGATIVE); URINE KETONE TRACE mg/dL (NEGATIVE); URINE LEUK ESTERASE NEGATIVE (Negative); URINE NITRITE - DIPSTICK NEGATIVE (Negative); URINE PROTEIN - DIPSTICK TRACE mg/dL (NEG-TRACE); URINE SPECIFIC GRAVITY 1.015; URINE UROBILINOGEN - DIPSTICK 0.2 E.U./dL (0.2)
[2018-10-09 13:13] LABS: URINE CLARITY CLEAR
--- NOTE | 2018-10-09 13:30 | NUR ---
PT RESTING WITH EYES CLOSED AT THIS TIME.
--- NOTE | 2018-10-09 13:47 | NUR ---
PT RESTING CALLS OUT OCCASIONALLY CONTINUES TO REFUSE TO ALLOW STAFF TO APPLY MONITORING EQUIPMENT OR START AN IV
--- NOTE | 2018-10-09 15:09 | NUR ---
SPOKE WITH PT REGARDING TAKING HER MEDICATIONS ORDERED BY MD, PT REFUSED TO TAKE FOR THIS NURSE WILL TRY AGAIN LATER
--- NOTE | 2018-10-09 15:40 | NUR ---
PT RESTING WITH EYES CLOSED, CALL RDZ WITHIN REACH
--- NOTE | 2018-10-09 16:38 | NUR ---
PT MORE COOPERATIVE A THIS TIME, ALLOWS IV INSERTION INTO LEFT AC, WILL CONTINUE TO MONITOR.
--- NOTE | 2018-10-09 16:39 | NUR ---
AT BEDSIDE FOR EVAL.
--- NOTE | 2018-10-09 17:00 | NUR ---
REPORT CALLED TO MILAGROS LEE ON MED SURG ROOM 291 AND TELE [address] ASSIGNED
--- NOTE | 2018-10-09 17:00 | NUR ---
PT TO ROOM VIA STRETCHER ACCOMPANIED BY STAFF; MAX 2 PERSON ASSIST TO BED; PT A/ORIENTED TO SELF ONLY; ASKED PT WHY SHE WAS ADMITTED TO HOSPITAL SHE STATES, "BECAUSE I AM SICK". #20 LAC SL INTACT NO REDNESS OR EDEMA NOTED, FLUSHES WELL; PT ALLOWS TELE MONITOR TO BED PLACED AT THIS TIME; SITTER IN ROOM FOR SAFETY; CALL RDZ WITHIN REACH; WILL CONTINUE TO MONITOR.
--- NOTE | 2018-10-09 17:09 | NUR ---
PT TRANSPORTED TO MED SURG ROOM 291 WITH TELE BOX , NURSE LINARES AT BEDSIDE ON ARRIVAL.
--- NOTE | 2018-10-09 19:15 | NUR ---
REPORT FROM ADELINA LEE. PT NOTE TO BE SITTING UP IN BED. ALERT TO SELF. IV ABT INFUSING WITHOUT DIFFICULTY. PT HAS ONE ON ONE SITTER AT BEDSIDE. NO DISTRESS NOTED. PT DENIES ANY PAIN OR DISCOMFORT. IV SITE APPEARS HEALTHY. CHILDREN LIBRARIAN IN PLACE. DISCUSSED POC, WILL REINFORCE NEEDED. CALL LIGHT WITHIN REACH. WILL CONTINUE TO MONITOR.
--- NOTE | 2018-10-09 19:36 | NUR ---
CRITICAL LAB RESULTS CALLED TO WAREHOUSE SELECTOR PHYSICIAN. NO NEW ORDERS RECEIVED AT THIS TIME.
[2018-10-09 20:01] VITALS: BP 114/59
--- NOTE | 2018-10-09 20:03 | NUR ---
ORDERS RECEIVED TO RECHECK TROPONIN IN 3 HOURS. LAB NOTIFIED.
--- NOTE | 2018-10-09 23:26 | NUR ---
PHYSICAL MEDICINE SPECIALIST PHYSICIAN NOTIFIED OF CRITICAL LABS. NO NEW ORDERS RECEIVED AT THIS TIME. PT DENIES ANY PAIN OR DISCOMFORT. RECHECK TROP IN AM AND CONTINUE TO MONITOR.
[2018-10-10] VITALS (8 sets, daily range): BP systolic 113–151; BP diastolic 58–80
--- NOTE | 2018-10-10 03:54 | NUR ---
PT RESTING IN BED WITH EYES CLOSED. NO DISTRESS NOTED. ONE ON ONE SITTER REMAINS IN ROOM. CALL LIGHT WITHIN REACH. WILL CONTINUE TO MONITOR.
[2018-10-10 05:58] LABS: HEMATOCRIT 38.2 % (37.0-47.0); MEAN CELL VOLUME 96.2 fL CALC (80.0-100.0); MEAN CORPUSCULAR HGB 30.2 pG CALC (26.0-32.0); MEAN CORPUSCULAR HGB CONC 31.4 g/L CALC (32.0-36.0); RED BLOOD COUNT 3.97 mill/uL (4.20-5.60); RED CELL DISTRI WIDTH 17.8 % (11.5-15.5)
[2018-10-10 06:22] LABS: ANION GAP 13 (6-22 (CALC)); BUN 18 mg/dL (8-23); BUN/CREATININE RATIO 31 (12-20 (CALC)); CARBON DIOXIDE 27 mmol/l (22-30); CHLORIDE 99 mmol/l (95-108); CREATININE 0.6 mg/dL (0.5-1.0); GFR > 60 ML/MIN (>=60 (CALC)); GFR FOR AFR.AMER. > 60 ML/MIN (>=60 (CALC)); POTASSIUM 3.7 mmol/l (3.5-5.1); SODIUM 136 mmol/l (137-146)
--- NOTE | 2018-10-10 07:34 | NUR ---
BEDSIDE REPORT RECEIVED FROM PAULETTE AVILES. PT RESTING IN BED SEMI FOWLERS; ALERT AND ORIENTED TO PERSON ONLY; SITTER AT BEDSIDE. PT DENIES PAIN. RESPIRATIONS EVEN AND UNLABORED ON ROOM AIR. PLAN OF CARE REVIEWED. PT NEEDS REINFORCEMENT R/T ACUTE COGNITIVE LIMITATIONS. SAFETY MEASURES IN PLACE. CALL LIGHT WITHIN REACH.
--- NOTE | 2018-10-10 09:05 | NUR ---
PT DECLINED ALL MEDICATIONS; EACH MEDICATION EXPLAINED IN DETAIL AND PT ENCORUAGED TO TAKE PIILS; CONTINUES TO DECLINE STATING, "YOU'RE TRYING TO KILL ME." PT NOT EASILY REORIENTED. REMOVING TELEMETRY. ATTEMPTED TO FLUSH IV SITE FOR ABT AND PT SNATCHED ARM AWAY AND SAID, "NO." ALL MEDICATIONS WASTED.
--- NOTE | 2018-10-10 09:45 | NUR ---
SPOKE WITH DAUGHTER ON THE PHONE TO UPDATE HER ON PT CONDITION AND REFUSAL OF MEDICATIONS; DAUGHTER IS CONCERNED THAT PT MAY HAVE UTI, NOTIFIED HER OF UA NEGATIVE RESULTS. DAUGHTER SPOKE WITH PT ON THE PHONE. PT CONTINUES TO REFUSE MEDICATIONS AND IS OCCASIONALLY YELLING OUT, "HELLO!" EVEN WITH NURSE AND SITTER AT BEDSIDE. WHEN ASKED IF SHE HAS ANY NEEDS AND WHY SHE IS YELLING OUT, BUT DOES NOT REPLY.
--- NOTE | 2018-10-10 10:09 | NUR ---
PT CONTINUES TO REMOVE TELE AND GRABBING AT ALL CORDS/WIRES AND PULLING ON THEM AND NOT LETTING STAFF HAVE THEM. TELE OFF FOR NOW; TELE MONITOR NOTIFIED.
--- NOTE | 2018-10-10 12:30 | NUR ---
PT AGREED TO DO ECHOCARDIOGRAM; ASSISTED TO WHEELCHAIR AND TRANSPORTED TO ECHO ROOM WITH MS STAFF. ONCE IN ECHO LAB PT DECLINED TO TRANSFER TO THE TABLE STATING, "NOT TODAY." UNABLE TO ENCOURAGE COMPLIANCE AT THIS TIME. PT BACK INTO BED.
--- NOTE | 2018-10-10 14:46 | NUR ---
DAUGHTER CALLED FOR AN UPDATE; NOTIFIED THAT PT DECLINED ECHO. DAUGHTER BHUPINDER LIVES AN HOUR AND HALF AWAY, BUT STATES THAT SHE CAN COME TOMORROW FOR ECHO IF NEEDED TO ENCOURAGE PT TO BE COOPERATIVE. WILL PASS ON TO SOFTWARE DEVELOPER INTERN.
--- NOTE | 2018-10-10 16:40 | NUR ---
PT WITH FACIAL FLUSHING AND TEMP OF 99.9; BLANKETS REMOVED AND ROOM COOLED. TP ALSO HYPERTENSIVE AND STATES, "I THINK I NEED TO TAKE MY MEDICATION." PT REMINDED THAT SHE DECLINED ALL MEDS THIS MORNING. SHE AGREED TO TAKE HER ABT THIS AFTERNOON. WILL CONTINUE TO MONITOR.
--- NOTE | 2018-10-10 17:49 | NUR ---
ABT INFUSING WITHOUT DIFFICULTY; IV SITE APPEARS HEATLHY. PT SITTING UP EATING DINNER; MORE COMPLIANT WITH CARE. SITTER REMAINS AT BEDSIDE. TEMPERATURE DOWN TO 98.6 AND PT HAS LESS FACIAL FLUSHING.
--- NOTE | 2018-10-10 19:30 | NUR ---
PATIENT RESTING IN BED WITH SITTER AT BEDSIDE FOR PATIENT SAFETY. PATIENT IS AWAKE AND ORIENTED TO SELF ONLY. TELE MONITOR IN PLACE. AZITHRO FINISHED AND SALINE LOCK TO LEFT AC FLUSHED PER PROTOCOL. SAFETY PRECAUTIONS REINFORCED. CALL LIGHT IN REACH. WILL CONT TO MONITOR.
--- NOTE | 2018-10-11 | NUR ---
PATIENT RESTING IN BED WITH HOB ELEVATED. SITTER AT BEDSIDE FOR PATIENT SAFETY. PATIENT APPEARS SLEEPING WITH EYES CLOSED. RESP ARE EVEN AND UNLABORED AT THIS TIME. CALL LIGHT IN REACH. WILL CONT TO MONITOR.
[2018-10-11 04:56] VITALS: BP 160/78
[2018-10-11 05:53] LABS: HEMATOCRIT 38.2 % (37.0-47.0); HEMOGLOBIN 12.3 g/dl (12.0-16.0); MEAN CELL VOLUME 93.4 fL CALC (80.0-100.0); MEAN CORPUSCULAR HGB 30.1 pG CALC (26.0-32.0); MEAN CORPUSCULAR HGB CONC 32.2 g/L CALC (32.0-36.0); RED BLOOD COUNT 4.09 mill/uL (4.20-5.60); RED CELL DISTRI WIDTH 17.9 % (11.5-15.5)
--- NOTE | 2018-10-11 06:01 | NUR ---
RESTING IN BED WITH EYES CLOSED-APPEARS SLEEPING. RESP ARE EVEN AND UNLABORED. TELE MONITOR IN PLACE. SITTER AT BEDSIDE FOR PATIENT SAFETY. CALL LIGHT IN REACH. WILL CONT TO MONITOR
[2018-10-11 06:28] LABS: ANION GAP 10 (6-22 (CALC)); BUN 11 mg/dL (8-23); BUN/CREATININE RATIO 22 (12-20 (CALC)); CARBON DIOXIDE 32 mmol/l (22-30); CHLORIDE 96 mmol/l (95-108); CREATININE 0.5 mg/dL (0.5-1.0); GFR > 60 ML/MIN (>=60 (CALC)); GFR FOR AFR.AMER. > 60 ML/MIN (>=60 (CALC)); POTASSIUM 3.2 mmol/l (3.5-5.1); SODIUM 134 mmol/l (137-146)
--- NOTE | 2018-10-11 08:00 | NUR ---
PT AWAKE RESTING IN BED. PT IS ALERT TO SELF ONLY. PLEASANTLY CONFUSED. SITTER AT BEDSIDE. RESP EVEN AND UNLABORED. LUNGS CLEAR BILAT. ABD SOFT WITH BOWEL SOUNDS PRESENT. PT HAS +2 BILAT LOWER EXT EDEMA NOTED. PEDAL PULSES PALPATED BILAT. HEPLOCK PATENT. TELE SR WITH PVC'S . PT DENIES ANY DISCOMFORT. FREQUENT ROUNDS MADE. CALL RDZ WITHIN REACH.
[2018-10-11 08:34] VITALS: BP 153/80
[2018-10-11 11:09] VITALS: BP 124/65
--- NOTE | 2018-10-11 11:50 | NUR ---
I SPOKE WITH SHAMA ABOUT THE NON STEMI CONSULT FOR DR. CASTILLO @[id number]. SHE VERIFIED THE CONSULTATION AND STATED THAT SHE WOULD GIVE HIM THE MESSAGE. #[phone]
--- NOTE | 2018-10-11 12:10 | NUR ---
PT AWAKE RESTING IN BED. RESP EVEN AND UNLABORED. PT REMAINS PLEASANTLY CONFUSED. HEPLOCK PATENT. SITTER AT BEDSIDE CLOSELY MONITORING PT. TELE INTACT. CALL RDZ WITHIN REACH.
[2018-10-11 15:13] VITALS: BP 128/56
--- NOTE | 2018-10-11 17:00 | NUR ---
PT AWAKE RESTING IN BED. SITTER REMAINS AT BEDSIDE. RESP EVEN AND UNLABORED. HEPLOCK PATENT. PT REMAINS PLEASANTLY CONFUSED. TELE INTACT. PT DENIES ANY DISCOMFORT. FREQUENT ROUNDS MADE. CALL RDZ WITHIN REACH.
[2018-10-11 19:13] VITALS: BP 118/50
--- NOTE | 2018-10-11 19:30 | NUR ---
PATIENT RESTING IN BED WITH SITTER AT BEDSIDE. PATIENT ORIENTED TO PERSON ONLY BUT PLEASANT. PATIENT WITH IV SITE TO LEFT AC INTACT AND APPEARS HEALTHY AT THIS TIME. TELE MONITOR IN PLACE. SITTER AT BEDSIDE FOR PATIENT SAFETY. CALL LIGHT IN REACH. WILL CONT TO MONITOR.
--- NOTE | 2018-10-11 21:40 | NUR ---
PATIENT COMPLAINING OF LEG AND GROIN PAIN BUT NOT ABLE TO BE ANYMORE SPECIFIC-ALSO STATES THAT SHE WANTS TO GO TO SLEEP. MEDICATED WITH ULTRAM 50MG PO AND [id number] PO. PATIENT REMAINS ORIENTED TO SELF ONLY. RESTLESS AND PULLING ON HER LINENS. SITTER REMAINS AT BEDSIDE FOR PATIENT SAFETY,WILL CONT TO MONITOR.
[2018-10-12 00:03] VITALS: BP 116/64
--- NOTE | 2018-10-12 00:15 | NUR ---
PATIENT RESTING QUIETLY IN BED AT THIS TIME WITH EYES CLOSED.RESP ARE EVEN AND UNLABORED. TELE MONITOR IN PLACE. SITTER REMAINS AT BEDSIDE FOR PATIENT SAFETY-STATES THAT THE PATIENT DID GET UP TO BSC EARLIER AND VOIDED 800CC OF YELLOW URINE. CALL LIGHT IN REACH. WILL CONT TO MONITOR.
[2018-10-12 03:56] VITALS: BP 145/66
--- NOTE | 2018-10-12 04:17 | NUR ---
PATIENT RESTING IN BED WITH HOB SLIGHTLY ELEVATED AND EYES CLOSED. RESP EVEN AND UNLABORED. TELE MONITOR IN PLACE. CALL LIGHT IN REACH. SITTER AT BEDSIDE FOR PATIENT SAFETY. WILL CONT TO MONITOR.
[2018-10-12 06:01] LABS: HEMATOCRIT 36.7 % (37.0-47.0); HEMOGLOBIN 11.7 g/dl (12.0-16.0); MEAN CELL VOLUME 93.6 fL CALC (80.0-100.0); MEAN CORPUSCULAR HGB 29.8 pG CALC (26.0-32.0); MEAN CORPUSCULAR HGB CONC 31.9 g/L CALC (32.0-36.0); RED BLOOD COUNT 3.92 mill/uL (4.20-5.60); RED CELL DISTRI WIDTH 17.8 % (11.5-15.5)
[2018-10-12 06:28] LABS: ANION GAP 9 (6-22 (CALC)); BUN 12 mg/dL (8-23); BUN/CREATININE RATIO 25 (12-20 (CALC)); CARBON DIOXIDE 31 mmol/l (22-30); CHLORIDE 98 mmol/l (95-108); CREATININE 0.5 mg/dL (0.5-1.0); GFR > 60 ML/MIN (>=60 (CALC)); GFR FOR AFR.AMER. > 60 ML/MIN (>=60 (CALC)); POTASSIUM 3.8 mmol/l (3.5-5.1); SODIUM 134 mmol/l (137-146)
--- NOTE | 2018-10-12 07:30 | NUR ---
RECEIVED PT AWAKE, ALERT TO PERSON. SITTER AT BEDSIDE. SET UP WITH BREAKFAST TRAY. NO SIGNS OF DISTRESS.
[2018-10-12 08:16] VITALS: BP 124/65
--- NOTE | 2018-10-12 08:30 | NUR ---
ASSESSMENT COMPLETE, SEE SHIFT REVIEW. BREATH SOUNDS DIMINISHED, SHALLOW RESPIRATIONS, NONLABORED. MURMUR NOTED. NO SIGNS OF DISTRESS.
--- NOTE | 2018-10-12 09:15 | NUR ---
PTS DAUGHTER CALLED, PASSCODE PROVIDED. UPDATE GIVEN.
--- NOTE | 2018-10-12 09:30 | NUR ---
AM SCHEDULED MEDS GIVEN ORDERED. TOLERATED WELL. SLEEPING INTERMITTENTLY.
[2018-10-12 10:50] VITALS: BP 152/67
--- NOTE | 2018-10-12 11:32 | NUR ---
DR BENTLEY IN TO SEE PT, NEW ORDERS RECEIVED.
--- NOTE | 2018-10-12 13:06 | NUR ---
DAUGHTER CALLED TO CHECK STAUS, UPDATE GIVEN.
--- NOTE | 2018-10-12 13:19 | NUR ---
PT RESTING WITH EYES CLOSED IN MID-FOWLERS POSITION. PT EASILY AROUSABLE TO VERBAL STIMULI. SITTER AT BEDSIDE. IV ANITBITICS INITIATED ORDERED.
[2018-10-12 15:23] VITALS: BP 110/50
--- NOTE | 2018-10-12 17:38 | NUR ---
PT SITTING IN HIGH FOWLERS. EATING DINNER. NO SIGNS OF DISTRESS.
[2018-10-12 19:08] VITALS: BP 132/64
--- NOTE | 2018-10-12 20:50 | NUR ---
ASSESMENT COMPLETED; NO DISTRESS NOTED; ALERT TO SELF ONLY. RE-EDUCATED DENTURE CONTOUR WIRE SPECIALIST LIGHT; SITTER AT BEDSIDE. NO DISTRESS NOTED; DENIES PAIN. OFFERED PO FLUIDS OFFERED; PT. MEDICATED WITH ORDERED MEDS ALONG WITH PRN SONATA TO ASSIST WITH SLEEP. ENCOURAGED TO CALL FOR ANY NEEDS. CALL LIGHT IS IN REACH .
[2018-10-13 00:01] VITALS: BP 147/61
--- NOTE | 2018-10-13 01:05 | NUR ---
PT. RESTING IN BED WITH EYES CLOSED; SLEEPING. NO DISTRESS NOTED; RESP. EVEN AND UNLABORED. SCHED ABT HUNG. SITTER AT BEDSIDE. CALL LIGHT IS IN REACH.
--- NOTE | 2018-10-13 03:19 | NUR ---
RESTING IN BED WITH EYES CLOSED; SITTER REMAINS AT BEDSIDE. NO DISTRESS NOTED; CALL LIGHT IS IN REACH. WILL CONTINUE TO MONITOR.
[2018-10-13 04:41] VITALS: BP 154/62
--- NOTE | 2018-10-13 06:11 | NUR ---
SPOKE WITH DR. THOMAS AND NOTIFIED HIM THAT PT. HAS NOT ATTEMPTED TO GET OOB OR BEING COMBATIVE. ORDER RECEIVED THAT IT IS OKAY TO D/C SITTER ORDER.
--- NOTE | 2018-10-13 06:41 | NUR ---
PT. MEDICATED WITH ORDERED MOM DUE TO NO BM YET. IV SITE SLIGHTLY REDDENED AND REPORTING PAIN TO SITE, IV SITE REMOVED AND CATHETER TIP INTACT. NEW IV STARTED TO LEFT WRIST X1 ATTEMPT. TOLERATED WELL. BED ALARM ON. CALL LIGHT IS IN REACH.
--- NOTE | 2018-10-13 07:20 | NUR ---
Received ot in mid-folwers position. Eyes closed, easily arousable. Oriented to persion only. Assessment complete. Denies any needs.
[2018-10-13 08:00] VITALS: BP 162/76
--- NOTE | 2018-10-13 08:44 | NUR ---
DR BENTLEY IN TO SEE PT. DISCUSSED DISCHARGE PLAN.
[2018-10-13] MEDS ORDERED: ASPIRIN ADULT L81 M2 PO (08:46)
[2018-10-13] MEDS ORDERED: ISOSORB MONO30 MG PO (08:46)
[2018-10-13] MEDS ORDERED: VANTIN200 M1 PO (08:46)
--- NOTE | 2018-10-13 10:08 | NUR ---
SUPPOSITORY GIVEN ORDERED.
[2018-10-13 11:14] VITALS: BP 72/50
--- NOTE | 2018-10-13 11:15 | NUR ---
PT UP TO BSC, PT UNABLE TO PRODUCE STOOL WITH SUPPOSITORY GIVEN. EMEMA GIVEN AND PT MANUALLY DISIMPACTED FOR EXRTA LARGE AMOUNT OF HARD BROWN STOOL. TOLERATED WELL. KHADARS NOTIFIED OF DISCHARGE.
--- NOTE | 2018-10-13 11:54 | NUR ---
DISCHARGE INSTRUCTIONS FAXED TO [facility] WITH RECEIPT CONFIRMATION.
--- NOTE | 2018-10-13 13:26 | NUR ---
CANDY HERE TO CIDER PRESS OPERATOR PATIENT FOR RETURN TO [facility]. DISCHARGE INSTRUCTIONS REVIEWED WITH STAFF MEMBER. STATES THEY HAD ALREADY RECEIVED IT BY FAX. NO QUESTIONS OFFERED. REVIEWED WHICH MEDICATIONS HAD DARIUS GIVEN TODAY.
== END 2018-10-13 13:32 | DRG 280 ==
LOC: ED 08:54 → ED-I 12:40 → ED 12:59 → MS2 13:00
PROVIDERS: Emergency Medicine; ADMIT Internal Medicine; ATTEND Internal Medicine
DX: I21.4 Non-ST elevation (NSTEMI) myocardial infarction (principal); J18.9 Pneumonia, unspecified organism; G93.41 Metabolic encephalopathy; I50.43 Acute on chronic combined systolic (congestive) and diastolic (congestive) heart failure; F03.91 Unspecified dementia, unspecified severity, with behavioral disturbance; I11.0 Hypertensive heart disease with heart failure; I35.0 Nonrheumatic aortic (valve) stenosis; E78.5 Hyperlipidemia, unspecified; M06.9 Rheumatoid arthritis, unspecified; G89.4 Chronic pain syndrome; J32.9 Chronic sinusitis, unspecified; I25.2 Old myocardial infarction; Y95 Nosocomial condition; Z66 Do not resuscitate; Z86.73 Personal history of transient ischemic attack (TIA), and cerebral infarction without residual deficits; Z87.891 Personal history of nicotine dependence; Z88.0 Allergy status to penicillin; Z79.02 Long term (current) use of antithrombotics/antiplatelets; J40 Bronchitis, not specified as acute or chronic
CPT/HCPCS: J0692

== ENCOUNTER 2019-02-05 08:36 | Inpatient (IN) | payer MEDICARE, BC ==
[~2019-02-05] VITALS: Ht 162.6 cm; Wt 84.4 kg
[2019-02-05] VITALS (15 sets, daily range): BP systolic 83–130; BP diastolic 50–92
[~2019-02-05 08:36] MED LIST changes: +ASPIRIN ADULT L81 M2 PO; +ISOSORB MONO30 MG PO; +VANTIN200 M1 PO
[2019-02-05 09:03] LABS: HEMATOCRIT 39.6 % (37.0-47.0); HEMOGLOBIN 12.6 g/dl (12.0-16.0); IMMATURE GRANULOCYTES 0.3 % (0.0-5.0); MEAN CELL VOLUME 94.3 fL CALC (80.0-100.0); MEAN CORPUSCULAR HGB CONC 31.8 g/L CALC (32.0-36.0); NEUT# 6.26 thou/uL (2.00-7.15); RED BLOOD COUNT 4.2 mill/uL (4.20-5.60); RED CELL DISTRI WIDTH 17.8 % (11.5-15.5)
[2019-02-05 09:14] LABS: ANION GAP 15 (6-22 (CALC)); BUN 19 mg/dL (8-23); BUN/CREATININE RATIO 28 (12-20 (CALC)); CARBON DIOXIDE 26 mmol/l (22-30); CHLORIDE 91 mmol/l (95-108); CREATININE 0.7 mg/dL (0.5-1.0); GFR > 60 ML/MIN (>=60 (CALC)); GFR FOR AFR.AMER. > 60 ML/MIN (>=60 (CALC)); POTASSIUM 3.9 mmol/l (3.5-5.1); SODIUM 129 mmol/l (137-146)
[2019-02-05 11:17] LABS: CHOLESTEROL HDL RATIO 1.9 (<4.4 (CALC)); MAGNESIUM 1.7 mg/dL (1.6-2.3)
[2019-02-05 16:18] LABS: ALBUMIN 3.8 g/dL (3.2-5.0); ALKALINE PHOSPHATASE 80 u/l (38-126); ANION GAP 14 (6-22 (CALC)); BILIRUBIN, TOTAL 0.6 mg/dL (0.0-1.4); BUN 21 mg/dL (8-23); BUN/CREATININE RATIO 24 (12-20 (CALC)); CARBON DIOXIDE 29 mmol/l (22-30); CHLORIDE 91 mmol/l (95-108); CREATININE 0.9 mg/dL (0.5-1.0); GFR 60 ML/MIN (>=60 (CALC)); GFR FOR AFR.AMER. > 60 ML/MIN (>=60 (CALC)); POTASSIUM 4.5 mmol/l (3.5-5.1); SGOT/AST 22 u/l (9-36); SODIUM 129 mmol/l (137-146); TOTAL PROTEIN 6.9 g/dL (6.3-8.2)
[2019-02-05 16:23] LABS: URINE BILIRUBIN - DIPSTICK NEGATIVE (NEGATIVE); URINE BLOOD DIPSTICK NEGATIVE (NEGATIVE); URINE COLOR YELLOW; URINE GLUCOSE - DIPSTICK NEGATIVE (NEGATIVE); URINE KETONE NEGATIVE (NEGATIVE); URINE LEUK ESTERASE TRACE (NEGATIVE); URINE NITRITE - DIPSTICK NEGATIVE (Negative); URINE PH 6.5 (4.5-8.0); URINE PROTEIN - DIPSTICK NEGATIVE (NEG-TRACE); URINE UROBILINOGEN - DIPSTICK 0.2 E.U./dL (0.2)
[2019-02-06] VITALS (20 sets, daily range): BP systolic 90–163; BP diastolic 41–93
[2019-02-06 05:46] LABS: ANION GAP 14 (6-22 (CALC)); BUN 18 mg/dL (8-23); BUN/CREATININE RATIO 29 (12-20 (CALC)); CARBON DIOXIDE 26 mmol/l (22-30); CHLORIDE 94 mmol/l (95-108); CREATININE 0.6 mg/dL (0.5-1.0); GFR > 60 ML/MIN (>=60 (CALC)); GFR FOR AFR.AMER. > 60 ML/MIN (>=60 (CALC)); POTASSIUM 4.2 mmol/l (3.5-5.1); SODIUM 130 mmol/l (137-146)
[2019-02-06 05:48] LABS: HEMATOCRIT 38.9 % (37.0-47.0); HEMOGLOBIN 12.5 g/dl (12.0-16.0); IMMATURE GRANULOCYTES 0.5 % (0.0-5.0); MEAN CELL VOLUME 93.5 fL CALC (80.0-100.0); MEAN CORPUSCULAR HGB CONC 32.1 g/L CALC (32.0-36.0); NEUT# 7.17 thou/uL (2.00-7.15); RED BLOOD COUNT 4.16 mill/uL (4.20-5.60); RED CELL DISTRI WIDTH 18.1 % (11.5-15.5)
[2019-02-07] VITALS (11 sets, daily range): BP systolic 84–166; BP diastolic 53–97
[2019-02-07] MEDS ORDERED: TOPROL XL50 MG PO (13:37)
[2019-02-07] MEDS ORDERED: ELIQUIS2.5 MG PO (13:37)
[2019-02-07] MEDS ORDERED: AMIODARONE200 MG PO (13:37)
[2019-02-07] MEDS ORDERED: CORDARONE/200 MG/TAB PO (13:37)
== END 2019-02-07 15:15 | DRG 310 ==
LOC: ED 08:36 → ED-I 09:27 → ED 09:46 → MS2 09:47 → ICU 09:47
PROVIDERS: Family Medicine; Nurse Practitioner Family; ADMIT Internal Medicine; ATTEND Internal Medicine
DX: I48.91 Unspecified atrial fibrillation (principal); I10 Essential (primary) hypertension; E78.5 Hyperlipidemia, unspecified; I89.0 Lymphedema, not elsewhere classified; M06.9 Rheumatoid arthritis, unspecified; G89.4 Chronic pain syndrome; Z86.73 Personal history of transient ischemic attack (TIA), and cerebral infarction without residual deficits; Z87.891 Personal history of nicotine dependence
CPT/HCPCS: J0282

== ENCOUNTER 2019-03-05 09:37 | Emergency (ER) | payer MEDICARE, BC ==
[~2019-03-05] VITALS: Ht 162.6 cm; Wt 86.0 kg
[~2019-03-05 09:37] MED LIST changes: +AMIODARONE200 MG PO; +CORDARONE/200 MG/TAB PO; +ELIQUIS2.5 MG PO; +TOPROL XL50 MG PO
[2019-03-05] MEDS ORDERED: [UNRECOGNIZED DRUG - CODE] PO (10:04)
[2019-03-05] MEDS ORDERED: RHEUMATREX2.5 M1 SC (10:05)
[2019-03-05 10:24] LABS: HEMATOCRIT 34.9 % (37.0-47.0); HEMOGLOBIN 11.3 g/dl (12.0-16.0); IMMATURE GRANULOCYTES 0.3 % (0.0-5.0); MEAN CELL VOLUME 93.6 fL CALC (80.0-100.0); MEAN CORPUSCULAR HGB 30.3 pG CALC (26.0-32.0); MEAN CORPUSCULAR HGB CONC 32.4 g/L CALC (32.0-36.0); NEUT# 6.48 thou/uL (2.00-7.15); RED BLOOD COUNT 3.73 mill/uL (4.20-5.60); RED CELL DISTRI WIDTH 17.1 % (11.5-15.5)
[2019-03-05 10:54] LABS: ALBUMIN 3.8 g/dL (3.2-5.0); ALKALINE PHOSPHATASE 91 u/l (38-126); ANION GAP 14 (6-22 (CALC)); BILIRUBIN, TOTAL 0.7 mg/dL (0.0-1.4); BUN 21 mg/dL (8-23); BUN/CREATININE RATIO 33 (12-20 (CALC)); CARBON DIOXIDE 26 mmol/l (22-30); CHLORIDE 93 mmol/l (95-108); CREATININE 0.7 mg/dL (0.5-1.0); GFR > 60 ML/MIN (>=60 (CALC)); GFR FOR AFR.AMER. > 60 ML/MIN (>=60 (CALC)); LIPASE 16 u/l (23-300); POTASSIUM 4.6 mmol/l (3.5-5.1); SGOT/AST 36 u/l (9-36); SODIUM 129 mmol/l (137-146); TOTAL PROTEIN 7.3 g/dL (6.3-8.2)
[2019-03-05 11:34] VITALS: BP 143/62
== END 2019-03-05 12:06 ==
LOC: ED 09:37
PROVIDERS: Family Medicine
DX: K59.00 Constipation, unspecified (principal); I10 Essential (primary) hypertension; F03.90 Unspecified dementia, unspecified severity, without behavioral disturbance, psychotic disturbance, mood disturbance, and anxiety; Z86.73 Personal history of transient ischemic attack (TIA), and cerebral infarction without residual deficits

== ENCOUNTER 2019-06-04 07:29 | Inpatient (IN) | payer MEDICARE, BC ==
[~2019-06-04] VITALS: Ht 162.6 cm; Wt 81.4 kg
[2019-06-04] VITALS (9 sets, daily range): BP systolic 105–141; BP diastolic 48–70
[~2019-06-04 07:29] MED LIST changes: +ALLERGY NA50 MCG/ACT; -FLOVENT DI50 MCG/BLI IN; -LORATADINE10 M1 PO; +RHEUMATREX2.5 M1 SC; +[UNRECOGNIZED DRUG - CODE] PO
--- NOTE | 2019-06-04 07:30 | NUR ---
PT TO ROOM VIA EMS STRETCHER FOR BEDSIDE TRIAGE
--- NOTE | 2019-06-04 07:50 | NUR ---
PT CAME IN FROM [place] RELATED TO CHEST PAIN, UPON ARRIVAL PT UNABLE TO BE SPECIFICABOUT TYPE OF PAIN, STAETS ITS ACROSS HER CHEST WALL AND EASING UP ALMOST GONE. EMS SITE IN [facility], EKG COMPLETED AND BW OBTAINED, CALL RDZ WITHIN REACH, WILL CONTINUE TO MOTNITOR
[2019-06-04 08:01] LABS: IMMATURE GRANULOCYTES 0.4 % (0.0-5.0); MEAN CELL VOLUME 90.6 fL CALC (80.0-100.0); MEAN CORPUSCULAR HGB CONC 29.9 g/dL CAL (32.0-36.0); NEUT# 7.32 thou/uL (2.00-7.15); RED BLOOD COUNT 2.33 mill/uL (4.20-5.60); RED CELL DISTRI WIDTH 19.9 % (11.5-15.5)
[2019-06-04 08:21] LABS: ANION GAP 11 (6-22 (CALC)); BUN 21 mg/dL (8-23); BUN/CREATININE RATIO 25 (12-20 (CALC)); CARBON DIOXIDE 28 mmol/l (22-30); CHLORIDE 90 mmol/l (95-108); CREATININE 0.8 mg/dL (0.5-1.0); GFR > 60 ML/MIN (>=60 (CALC)); GFR FOR AFR.AMER. > 60 ML/MIN (>=60 (CALC)); POTASSIUM 4.7 mmol/l (3.5-5.1); SODIUM 125 mmol/l (137-146)
[2019-06-04 08:29] LABS: HEMATOCRIT 21.1 % (37.0-47.0)
[2019-06-04 08:30] LABS: HEMOGLOBIN 6.3 g/dl (12.0-16.0)
--- NOTE | 2019-06-04 08:30 | NUR ---
PT RESTING WARM BLANKETS PROVIDED EARLIER FOR COMFORT, PT AWARE OF LOW HEMOGLOBIN AND NEED FOR ADMISSION, RECTAL EXAM COMPLETED BY WITH NEGATIVE RESULTS.
[2019-06-04 09:03] LABS: INTERNATIONAL NORMALIZED RATIO 1.2 RATIO (0.7-1.3)
[2019-06-04 09:12] LABS: HEMATOCRIT 20.7 % (37.0-47.0)
[2019-06-04 09:15] LABS: HEMOGLOBIN 6.3 g/dl (12.0-16.0)
--- NOTE | 2019-06-04 09:20 | NUR ---
REPORT CALLED TO LEONEL LEE ON MED SURG ROOM 272 AND TELE BOX 0720 ASSIGNED
[2019-06-04] MEDS ORDERED: LORATADINE10 M1 PO (09:31)
[2019-06-04] MEDS ORDERED: PRADAXA75 MG PO (09:34)
[2019-06-04] MEDS ORDERED: MIRALAX3350 NF PO (09:34)
--- NOTE | 2019-06-04 10:00 | NUR ---
PT TRANSPORTED TO MED SURG WITH TELE ON VIA HILARIO WADE AT BEDSIDE ON ARRIVAL
--- NOTE | 2019-06-04 10:00 | NUR ---
PT ARRIVED TO UNIT VIA STRETCHER WITH ER STAFF; ALERT AND OREINTED X 3. C/O MILD CHEST PAIN. RESPIRATIONS EVEN AND UNLABROED ON ROOM AIR. IV FLUIDS INITIATED AT 100ML/HR PER ORDER PRIMED IN BLOOD TUBING. DISCUSSED BLOOD TRANSFUSION WITH PT AND PT SIGNED CONSENT FORM. ORIENTED TO ROOM AND CALL LIGHT SYSTEM. PLAN OF CARE REVIEWED. PT ENCOURAGED TO VERBALIZE CONCERNS. STATES UNDERSTANDING. SAFETY MEASURES IN PLACE. CALL LIGHT WITHIN REACH.
--- NOTE | 2019-06-04 10:58 | NUR ---
DR. THOMAS AT BEDSIDE. IV FLUIDS DECRASED TO KVO.
--- NOTE | 2019-06-04 11:15 | NUR ---
FIRST UNIT OF PRBC'S INITIATED. DAUGHTER FROM [place] CALLED FOR UPDATE; PT GAVE CONSENT FOR DAUGHTER TO HAVE CODE. PT ALSO SPOKE WITH DAUGHTER ON THE PHONE. REVIEWED S/S OF TRANSFUSION REACTION; PT STATES UNDERSTANDING. NO REQUESTS OR CONCERNS AT THIS TIME.
--- NOTE | 2019-06-04 13:35 | NUR ---
PURWIK CATHETER APPLIED DUE TO WEAKNESS WITH STANDING.
--- NOTE | 2019-06-04 14:06 | NUR ---
SECOND UNIT OF PRBCS INITIATED. VSS. N0 SIGNS OF REACTION. IV SITE IS HEALTHY.
--- NOTE | 2019-06-04 14:38 | NUR ---
UP TO BSC FOR LARGE BOWEL MOVEMENT AND VOID. PT UNABLE TO URINATE WITH PURWIK IN PLACE.
--- NOTE | 2019-06-04 16:44 | NUR ---
BLOOD TRANSFUSION COMPLETED AT THIS TIME. VSS. NORMAL SALINE NOW INFUSING AT KVO. PT TO BSC AGAIN FOR VOID.
--- NOTE | 2019-06-04 18:42 | NUR ---
LAB AT BEDSIDE FOR REPEAT BLOOD WORK.
[2019-06-04 19:11] LABS: HEMATOCRIT 28.6 % (37.0-47.0); HEMOGLOBIN 8.8 g/dl (12.0-16.0)
--- NOTE | 2019-06-04 20:00 | NUR ---
PATIENT RESTING IN BED AT THIS TIME-AWAKE ALERT AND ORIENTEDX3. TELE MONITOR IN PLACE. STATES THAT SHE AND HER ARE BOTH RESIDENTS AT THE [facility]. PATIENT WITH IV SITE TO LEFT AC INTACT WITH IVF PATENT AND INFUSING AT KVO RATE. SITE IS HEALTHY AT THIS TIME. PATIENT STATES THAT SHE HAS BEEN HAVING "THESE" SPELL WHEN SHE GETS VERY WEAK. STATES HAVING BACK STOOLS. SAFETY PRECAUTIONS REINFORCED. REINFORCED THE USE OF THE CALL LIGHT SYSTEM THE PATIENT LIKE TO CALL OUT INSTEAD OF USING THE ALL LIGHT. WILL CONT TO MONITOR.
--- NOTE | 2019-06-04 21:00 | NUR ---
PATIENT ASSISTED OOB TO BSC TO VOID CLEAR YELLOW URINE-SPEC OBTAINED AND SENT TO LAB. ASSISTED PATIENT BACK TO BED. PATIENT CONT TO BE NEEDY AND FORGETS TO USE USE CALL LIGHT. REINFORCED SAFETY PRECAUTION TEACHING AND USE OF NURSE CALL LIGHT SYSTEM. PATIENT REPOSITIONED IN BED. HOB ELEVATED. CALL LIGHT IN REACH. WILL CONT TO MONITOR.
[2019-06-05] VITALS (7 sets, daily range): BP systolic 125–177; BP diastolic 58–71
--- NOTE | 2019-06-05 01:00 | NUR ---
PATIENT INCONT OF MODERATE AMT OF URINE. PATIENT PROVIDED WITH DARIAN-CARE AND LINENES CHANGED. PATIENT CONFUSED AT TIMES. REFUSED PUREICK AGAIN. CALL LIGHT IN REACH. BED ALARM ON FOR PATIENT SAFETY. CALL LIGHT IN REACH. WILL CONT TO MONITOR.
--- NOTE | 2019-06-05 03:56 | NUR ---
PATIENT APPEARS SLEEPING AT THIS TIME WITH HOB ELEVATED AND EYES CLOSED. RESP ARE EVEN AND UNLABORED. IVF NS PATENT AND INFUSING VIA LEFT AC SITE AT KVO RATE. TELE MONITOR IN PLACE. BED ALARM IN PLACE. CALL LIGHT IN REACH. WILL CONT TO MONITOR.
[2019-06-05 05:19] LABS: HEMATOCRIT 29.3 % (37.0-47.0); HEMOGLOBIN 9.1 g/dl (12.0-16.0); MEAN CELL VOLUME 88.3 fL CALC (80.0-100.0); MEAN CORPUSCULAR HGB 27.4 pG CALC (26.0-32.0); MEAN CORPUSCULAR HGB CONC 31.1 g/dL CAL (32.0-36.0); RED BLOOD COUNT 3.32 mill/uL (4.20-5.60); RED CELL DISTRI WIDTH 18.7 % (11.5-15.5)
[2019-06-05 05:44] LABS: ANION GAP 13 (6-22 (CALC)); BUN 19 mg/dL (8-23); BUN/CREATININE RATIO 25 (12-20 (CALC)); CARBON DIOXIDE 27 mmol/l (22-30); CHLORIDE 91 mmol/l (95-108); CREATININE 0.8 mg/dL (0.5-1.0); GFR > 60 ML/MIN (>=60 (CALC)); GFR FOR AFR.AMER. > 60 ML/MIN (>=60 (CALC)); POTASSIUM 4.1 mmol/l (3.5-5.1); SODIUM 127 mmol/l (137-146)
[2019-06-05 05:49] LABS: CHOLESTEROL HDL RATIO 1.5 (<4.4 (CALC)); MAGNESIUM 1.7 mg/dL (1.6-2.3)
--- NOTE | 2019-06-05 08:35 | NUR ---
PATIENT ABLE TO MAKE NEEDS KNOWN, NO C/O PAIN, NO S/S RESP DISTRESS, PATIENT SITTING UP IN CHAIR, PATIENT HEART RHYTHM IN NORMAL SINUS, PATIENT AFERBILE, PATIENT ONE PERSON ASSIST WITH WALKER, WILL CONTINUE TO MONITOR PATIENT, CALL LIGHT WITHIN REACH, WILL CONTINUE TO MONITOR PATIENT,
--- NOTE | 2019-06-05 12:40 | NUR ---
PATIENT A/OX4, NO C/O PAIN, NO S/S RESP DISTRESS, PATIENT ON ROOM AIR, PATIENT HEART RHYTHM IN NORMAL SINUS, IVF INFUSING WITHOUT COMPLICATIONS, CALL LIGHT WITHIN REACH, WILL CONTINUE TO MONITOR PATIENT
--- NOTE | 2019-06-05 20:35 | NUR ---
PHYSICAL ASSESMENT COMPLETE. PLAN OF CARE REVIEWED W/ PT. PT VERBALIZES UNDERSTANDING. DENIES QUESTIONS. PRN SLEEP AID GIVEN PER PT'S REQUEST. SEE MAR. PT ABLE TO TOLERATE PILL WHOLE W/ SIPS OF WATER. PT DENIES ANY DISCOMFORT OR CURRENT NEEDS @ THIS TIME. BED LOCKED IN LOW POSITION W/ BEDRAILS UPX2, BED ALARM AND TABS ALARM IN PLACE. ITEMS WITHIN REACH. CALL RDZ WITHIN REACH, AGREES TO CALL PRN.
--- NOTE | 2019-06-06 00:15 | NUR ---
PT APPEARS TO BE SLEEPING COMFORTABLY. NO APPARENT DISTRESS. RESP REG&UNLABORED. NO CHANGES IN ASSESMENT. FALL AND SAFETY INTERVENTIONS REMAIN IN PLACE. CALL RDZ REMAINS WITHIN REACH.
--- NOTE | 2019-06-06 04:10 | NUR ---
PT APPEARS RESTLESS THIS AM, ASKED PT IF SHE FEELS OK. PT RESPONDS BY REPEATING "I NEED, I NEED...I DONT KNOW WHAT I NEED". PTS WHEEZING HAS BECOME AUDIBLE AND WORK OF BREATHING HAS INCREASED. PT IS COUGHING MORE THAN PRIOR. Spo2 90% ON ROOM AIR. O2 @ 2L/MIN VIA NC APPLIED. SpO2 96% WITH OXYGEN. PT SEEMS LESS RESTLESS AFTER O2 APPLIED. PT REMAINS SINUS RYTHM IN THE 70'S ON TELE. VSS. AFEBRILE. ORDERS FOR EKG, ABG, PCXR, ABG, O2, DUONEB ENTERED.
[2019-06-06 04:15] VITALS: BP 140/80
--- NOTE | 2019-06-06 04:45 | NUR ---
DR ROCHE UP TO UNIT TO ASSESS PT, ORDER TO ADD BNP TO LABS RECEIVED.
[2019-06-06 05:25] LABS: HEMATOCRIT 29.3 % (37.0-47.0); HEMOGLOBIN 8.9 g/dl (12.0-16.0); MEAN CELL VOLUME 89.6 fL CALC (80.0-100.0); MEAN CORPUSCULAR HGB 27.2 pG CALC (26.0-32.0); MEAN CORPUSCULAR HGB CONC 30.4 g/dL CAL (32.0-36.0); RED BLOOD COUNT 3.27 mill/uL (4.20-5.60)
[2019-06-06 05:38] LABS: ANION GAP 11 (6-22 (CALC)); BUN 16 mg/dL (8-23); BUN/CREATININE RATIO 29 (12-20 (CALC)); CARBON DIOXIDE 27 mmol/l (22-30); CHLORIDE 93 mmol/l (95-108); CREATININE 0.6 mg/dL (0.5-1.0); GFR > 60 ML/MIN (>=60 (CALC)); GFR FOR AFR.AMER. > 60 ML/MIN (>=60 (CALC)); MAGNESIUM 1.7 mg/dL (1.6-2.3); POTASSIUM 4.2 mmol/l (3.5-5.1); SODIUM 127 mmol/l (137-146)
[2019-06-06 05:49] LABS: MYOGLOBIN 47 ng/mL (0 - 62)
--- NOTE | 2019-06-06 06:04 | NUR ---
DR. PARISH REVIEWED RESULTS OF XRAY, LABS, AND ABG. CALLS BACK TO ORDER LASIX 20MG IVX1 AND DUONEBX1. SEE MAR.
[2019-06-06 08:21] VITALS: BP 119/65
--- NOTE | 2019-06-06 08:21 | NUR ---
PT SITTING IN BED WATCHING TV. A&O. NO DISTRESS NOTED. O2 VIA NC @2L IN PLACE. NO OTHER NEEDS OR COMPLAINTS AT THIS TIME. ASSESSMENT COMPLETED. CALL LIGHT IN REACH CONTINUE TO MONITOR.
[2019-06-06 10:50] VITALS: BP 109/57
--- NOTE | 2019-06-06 11:08 | NUR ---
PT SLEEPING IN BED, BED ALARM IN PLACE TO PREVENT A FALL. NO DISTRESS NOTED. CONTINUE TO MONITOR.
--- NOTE | 2019-06-06 12:12 | NUR ---
PT 06/06/19 Patient cc is fatigue. Her Am Pac score is 12 indicating she would do well with ECF and physical therapy treatment. Bed mobility is min assist as are her transfers. She c/o fatigue when standing and this limited her walking today as her dyspnea evel increased to 2 plus. She would benefit from physical therpay on DC for continued strengthening and functional training to reduce her fall risk and improve her independence
[2019-06-06 15:35] VITALS: BP 98/56
[2019-06-06 19:03] VITALS: BP 105/54
--- NOTE | 2019-06-06 19:45 | NUR ---
PT.IS ALERT WITH CONFUSION WITH BED ALARM IN PLACE FOR SAFETY.PT.IS RE-DIRECTED EASILY. IV SITE PATENT TO RIGHT HAND. ASSESSMENT COMPLETED.PT.ABLE TO MOVE ALL EXTREMETIES. BLE ELEVATED ONTO PILLOW. FALL PRECAUTIONS IN PLACE. WILL CONTINUE TO MONITOR.
--- NOTE | 2019-06-06 21:53 | NUR ---
PT.IS RESTLESS AND MEDICATED WITH ORDERED PRN SONATA;WILL REASSESS.BED ALARM REMAINS IN PLACE. WILL CONTINUE TO MONITOR.
[2019-06-07] VITALS (7 sets, daily range): BP systolic 99–156; BP diastolic 46–73
--- NOTE | 2019-06-07 01:02 | NUR ---
PT. SET OFF BED ALARM AND C/O GENERALIZED PAIN AND COUGH,MEDICATED WITH PRN TRAMADOL,WILL REASSESS. PT. ALSO INCONTINENT OF URINE;DARIAN CARE GIVEN AND BRIEF APPLIED. BED ALARM RE-SET.CALL LIGHT IS IN REACH.
--- NOTE | 2019-06-07 04:20 | NUR ---
RESTING IN BED WITH NO DISTRESS NOTED; BED ALARM ON. CALL LIGHT IS IN REACH.
[2019-06-07 04:58] LABS: HEMATOCRIT 27.8 % (37.0-47.0); HEMOGLOBIN 8.5 g/dl (12.0-16.0); MEAN CELL VOLUME 89.4 fL CALC (80.0-100.0); MEAN CORPUSCULAR HGB 27.3 pG CALC (26.0-32.0); MEAN CORPUSCULAR HGB CONC 30.6 g/dL CAL (32.0-36.0); RED BLOOD COUNT 3.11 mill/uL (4.20-5.60); RED CELL DISTRI WIDTH 19.3 % (11.5-15.5)
[2019-06-07 05:12] LABS: ANION GAP 9 (6-22 (CALC)); BUN 20 mg/dL (8-23); BUN/CREATININE RATIO 34 (12-20 (CALC)); CARBON DIOXIDE 29 mmol/l (22-30); CHLORIDE 92 mmol/l (95-108); CREATININE 0.6 mg/dL (0.5-1.0); GFR > 60 ML/MIN (>=60 (CALC)); GFR FOR AFR.AMER. > 60 ML/MIN (>=60 (CALC)); MAGNESIUM 1.6 mg/dL (1.6-2.3); POTASSIUM 4.1 mmol/l (3.5-5.1); SODIUM 126 mmol/l (137-146)
--- NOTE | 2019-06-07 05:13 | NUR ---
PT. ASSISTED TO AND FROM BSC WELL BRIEF CHANGED. BED ALARM RE-SET. IV SITE FOUND DISLODGED AND NEW IV STARTED TO LEFT WRIST X1 ATTEMPT. WARM PACK APPLIED TO RIGHT SHOULDER FOR ACHEYNESS. CALL LIGHT IN REACH. PRUNE JUICE AND MOM GIVEN TO ASSIST WITH BM.
--- NOTE | 2019-06-07 09:00 | NUR ---
PT SEEN RESTING IN THE BED, ALERT BUT NOT ORIENTED COMPLETELY PER DIFFICULTY STATING HER OWN BIRTHDAY. LUNGS ARE DIMINISHED IN THE BASES, RA. HEART MURMUR NOTED. PT DENIES SHORTNESS OF BREATH OR CHEST PAIN.
--- NOTE | 2019-06-07 13:30 | NUR ---
PT TRANSPORTED TO ROOM 290 AND PLACED ON CONTACT/AIRBORNE PRECAUTIONS PENDING COVID SWAB RESULTS. RESUMED CARE OF PT AT THIS TIME; BEDSIDE REPORT RECEIVED FROM ROSA BOLDEN. PT SITTING UP IN RECLINER; ALERT AND ORIENTED. DENIES PAIN. RESPIRATIONS EVEN AND UNLABORED ON ROOM AIR. IV FLUIDS INFUSING AT KVO INTO 22 TO LW. ORIENTED TO NEW ROOM AND CALL LIGHT SYSTEM. CALL LIGHT WITHIN REACH.
--- NOTE | 2019-06-07 15:47 | NUR ---
Attempted to see patient in AM. She refused stating she was exhausted. My plan is to attempt again in the PM
--- NOTE | 2019-06-07 16:14 | NUR ---
Patient seen in PM. We did gown mask,glove as she is now in a negative pressure room. She is stronger today and able to stand with CGA of 1 . She is able to ambulate in room with vitals stable. Am Pac improved to 14 She would do well with ECF and continued rehab for strengthening and fall prevention. It should be noted that she was pretty confused but oriented to person and place. She has a poor omtor plan for LOB
--- NOTE | 2019-06-07 16:17 | NUR ---
PT AT BEDSIDE. PT SEEMS TO BE HALLUCINATING AND SEEING PEOPLE IN HER ROOM. BACK UP IN CHAIR. SAFETY MEASURES IN PLACE.
--- NOTE | 2019-06-07 19:35 | NUR ---
PT SITTING IN RECLINER AT BEDSIDE, PT ALERT AND ORIENTED X3, DISCUSSED POC, PT VERBALIZED UNDERSTANDING. PT VOICES NO NEEDS OR COMPLAINTS AT THIS TIME, ASSESSMENT COMPLETED, CALL LIGHT IN REACH,CONTINUE TO MONITOR.
--- NOTE | 2019-06-07 21:45 | NUR ---
PT SITTING IN RECLINER, NO SIGNS OF DISTRESS NOTED, RESP EVEN AND UNLABORED. PT DENIES NEEDS AT THIS TIME, ASKED PT IF SHE WOULD LIKE TO GET IN BED, PT DECLINED. CALL LIGHT IN REACH,CONTINUE TO MONITOR.
[2019-06-08 00:30] VITALS: BP 104/51
--- NOTE | 2019-06-08 00:33 | NUR ---
SHAREPOINT SOLUTIONS DEVELOPER AT BEDSIDE, OBTAINING VITAL AND ASSISTING PT TO BATHROOM, CONTINUE TO MONITOR.
--- NOTE | 2019-06-08 02:05 | NUR ---
PT SITTING IN RECLINER, IV FLAGYL INITIATED. PT STATES SHE HAS TO PEE. ASSISTED PT TO BSC, PT ATTEMPTING TO VOID, STATES "IT TAKES A WHILE" AFTER A FEW MINUTES DISCUSSED BLADDER SCANNING PT AND POSSIBLE FINN, PT ASSISTED TO BED, BLADDER SCANNED 470CC, NO FINN AT THIS TIME, PT PREFERS TO WAIT, WILL BLADDER SCAN IF PT DOES NOT VOID. CALL LIGHT IN REACH,CONTINUE TO MONITOR.
[2019-06-08 04:20] VITALS: BP 126/63
--- NOTE | 2019-06-08 04:20 | NUR ---
PT RESTING IN BED, DISCUSSED VITALS AND AM LAB DRAW, PT AGREES, LABS DRAWN PT TOLERATED WELL. DECLINED NEED TO USE BSC. CALL LIGHT IN REACH, CONTINUE TO MONITOR.
[2019-06-08 05:32] LABS: HEMATOCRIT 30.4 % (37.0-47.0); MEAN CELL VOLUME 91.6 fL CALC (80.0-100.0); MEAN CORPUSCULAR HGB 27.1 pG CALC (26.0-32.0); MEAN CORPUSCULAR HGB CONC 29.6 g/dL CAL (32.0-36.0); RED BLOOD COUNT 3.32 mill/uL (4.20-5.60); RED CELL DISTRI WIDTH 19.6 % (11.5-15.5)
[2019-06-08 05:43] LABS: ANION GAP 11 (6-22 (CALC)); BUN 20 mg/dL (8-23); BUN/CREATININE RATIO 30 (12-20 (CALC)); CARBON DIOXIDE 30 mmol/l (22-30); CHLORIDE 92 mmol/l (95-108); CREATININE 0.7 mg/dL (0.5-1.0); GFR > 60 ML/MIN (>=60 (CALC)); GFR FOR AFR.AMER. > 60 ML/MIN (>=60 (CALC)); POTASSIUM 4.6 mmol/l (3.5-5.1); SODIUM 128 mmol/l (137-146)
--- NOTE | 2019-06-08 07:30 | NUR ---
REPORT RECEIVED FROM PAULETTE EASTON. PT RESTING IN BED SEMI FOWLERS; REPOSITIONED INTO HIGH FOWLERS FOR BREAKFAST. C/O GENERALIZED ACHES. RESPIRATIONS EVEN AND UNLABOERD ON ROOM AIR. LUNGS ARE COURSE ANTERIORLY. IV FLUIDS INFUSING WITHOUT DIFFICULTY; IV SITE APPEARS HEALTHY. TELE. LEGS ELEVATED FOR MILD SWELLING. PT ON AIRBORNE ISOLATION PRECAUTIONS PENDING COVID TEST RESULTS. SAFETY MEASURES IN PLACE. CALL LIGHT WITHIN REACH.
[2019-06-08 08:00] VITALS: BP 146/63
--- NOTE | 2019-06-08 08:45 | NUR ---
ASSISTED TO BSC FOR VOID; PT HAD MODERATE URINARY INCONTINENCE IN BED; DID NOT VOID IN BSC. RESTING BACK IN BED.
--- NOTE | 2019-06-08 09:48 | NUR ---
FULL BED BATH PROVIDED; PT NOW TALKING TO DAUGHTER ON THE PHONE.
[2019-06-08 10:55] VITALS: BP 101/55
--- NOTE | 2019-06-08 11:25 | NUR ---
DR. THOMAS AT BEDSIDE.
--- NOTE | 2019-06-08 11:58 | NUR ---
PT note Patient resting confortably in bed- she refused AM treatment but stated she will work with me in the PM as she has just gotten through working with nursing and wanted to rest
[2019-06-08 15:08] VITALS: BP 114/43
--- NOTE | 2019-06-08 16:31 | NUR ---
PT note Patient was seen in PM for ambulation. Her vitals remained steady (but flat) with activity. She had no signs of orthostatic hypostension and readily got OOB and walked in the room with her FWW. She required Min Mod assist of 1 to do so and her vitals were stable throughout the Tx. She had little dypsnea and preferred to sit in her bedside chair. She has an extreme forward head posture and is basically looking at the gground when standing. This is her baseline. She would benefit from continued gait training, strengthening and transfer training as well as balance aactivity and cardiac monitoring to ensure savety and decrease her fall risk
--- NOTE | 2019-06-08 17:36 | NUR ---
FLAGYL INFUSING AT THIS TIME; IV SITE APPEARS HEALTHY. PT AWAKE AND ALERT; PLEASANT AND SMILING. SITTING UP IN RECLINER. NO REQUESTS OR CONCERNS AT THIS TIME.
[2019-06-08 19:40] VITALS: BP 121/44
--- NOTE | 2019-06-08 21:00 | NUR ---
PHYSICAL ASSESMENT COMPLETE @ THIS TIME. PLAN OF CARE REVIEWED W/ PT. PT VERBALIZES UNDERSTANDING, DENIES QUESTIONS @ THIS TIME. BED LOCKED IN LOW POSITION, BED RAILS UPX2, ITEMS WITHIN REACH. AIRBORNE/CONTACT PRECAUTIONS IN PLACE. CALL RDZ WITHIN REACH, AGREES TO CALL PRN.
[2019-06-09 01:19] VITALS: BP 147/67
--- NOTE | 2019-06-09 02:10 | NUR ---
PT APPEARS TO BE SLEEPING COMFORTABLY, NO APPARENT DISTRESS. RESP REG AND UNLABORED. FALL, SAFETY, AND ISOLATION PRECAUTIONS REMAIN IN PLACE. CALL RDZ REMAINS WITHIN REACH.
[2019-06-09 03:35] VITALS: BP 142/59
[2019-06-09 05:39] LABS: HEMATOCRIT 30.5 % (37.0-47.0); HEMOGLOBIN 9.1 g/dl (12.0-16.0); MEAN CELL VOLUME 91.9 fL CALC (80.0-100.0); MEAN CORPUSCULAR HGB 27.4 pG CALC (26.0-32.0); MEAN CORPUSCULAR HGB CONC 29.8 g/dL CAL (32.0-36.0); RED BLOOD COUNT 3.32 mill/uL (4.20-5.60); RED CELL DISTRI WIDTH 19.4 % (11.5-15.5)
--- NOTE | 2019-06-09 05:42 | NUR ---
CNAS IN ROOM BATHING PT AND CHANGING GOWNS/LINENS
[2019-06-09 05:53] LABS: ANION GAP 10 (6-22 (CALC)); BUN 28 mg/dL (8-23); BUN/CREATININE RATIO 50 (12-20 (CALC)); CARBON DIOXIDE 30 mmol/l (22-30); CHLORIDE 95 mmol/l (95-108); CREATININE 0.6 mg/dL (0.5-1.0); GFR > 60 ML/MIN (>=60 (CALC)); GFR FOR AFR.AMER. > 60 ML/MIN (>=60 (CALC)); POTASSIUM 4.9 mmol/l (3.5-5.1); SODIUM 130 mmol/l (137-146)
--- NOTE | 2019-06-09 08:00 | NUR ---
Patient is A&O with periods of confusion. Patient Head to toe assessment complete. Lung sounds Dimished. Productive spuctum present. Bowel sounds Hypoactive. Abd round and hard. Skin intact. No C/o pain when asked. Assisted with ADL by staff
[2019-06-09 11:00] VITALS: BP 120/42
--- NOTE | 2019-06-09 11:32 | NUR ---
ANGELES BAH FROM LAB PTIS NOT DETECTED. INFORMED ROXANA SHEARER AND DR ZAPATA
--- NOTE | 2019-06-09 13:41 | NUR ---
Supp given to patient per order, waiting on patient to have a BM then Discharge
[2019-06-09] MEDS ORDERED: DOXYCYCLINE100 MG PO (15:04)
--- NOTE | 2019-06-09 15:20 | NUR ---
Nurse spoke to Raina patient daughter and explained that patient is discharge but have not had a BM. Raina expressed her concern and stated please do not relaese her until she have a BM .
[2019-06-09 16:25] VITALS: BP 149/65
--- NOTE | 2019-06-09 16:48 | NUR ---
Patient had a xlarge BM. Yee care provided.
--- NOTE | 2019-06-09 17:01 | NUR ---
Nurse called [phone] for transpor and spoke to Irene at [facility] and told her I was setting up a patient for transport. [facility] stated they have no one to pick the patient up from the hospital. Nurse jennifer Daigle at hospital aware.
--- NOTE | 2019-06-09 17:35 | NUR ---
CALLED [facility] AT SPOKE TO LOLI GAVE INFORMATION ON THIS PT REGARDING DISCHARGE BACK TO [facility]. WAS GIVEN ESTIMATED TIME OF 9:30 PM TONIGHT FOR TMD TEACHER. WAS TOLD THEY WILL CALL WITH A N UPDATED TIME SOON THEY CAN.
[2019-06-09 20:00] VITALS: BP 151/61
--- NOTE | 2019-06-09 21:15 | NUR ---
PT DISCHARGED TO RETURN TO [facility] PICKED UP BY MEDICAL TRANSPORT. ASSISTED TO STRETCHER W/ NURSE PETROLEUM PLANT OPERATOR AND TRANSPORT STAFF X2. BELONGING SENT W/ PT.
== END 2019-06-09 21:15 | disposition home health service (06) | DRG 811 ==
LOC: ED 07:29 → ED-I 08:43 → ED 08:43 → ED-I 08:54 → MS2 08:54
PROVIDERS: Family Medicine; Nurse Practitioner Family; ADMIT Internal Medicine; ATTEND Internal Medicine
PROC: 30233N1 Transfusion of Nonautologous Red Blood Cells into Peripheral Vein, Percutaneous Approach (ICD-10-PCS; principal; 2019-06-04)
PROC: 30233N1 Transfusion of Nonautologous Red Blood Cells into Peripheral Vein, Percutaneous Approach (ICD-10-PCS; 2019-06-04)
DX: D50.0 Iron deficiency anemia secondary to blood loss (chronic) (principal); J18.9 Pneumonia, unspecified organism; E87.1 Hypo-osmolality and hyponatremia; L03.116 Cellulitis of left lower limb; L03.115 Cellulitis of right lower limb; J44.0 Chronic obstructive pulmonary disease with (acute) lower respiratory infection; I11.0 Hypertensive heart disease with heart failure; I50.9 Heart failure, unspecified; F03.90 Unspecified dementia, unspecified severity, without behavioral disturbance, psychotic disturbance, mood disturbance, and anxiety; I48.0 Paroxysmal atrial fibrillation; E78.5 Hyperlipidemia, unspecified; M06.9 Rheumatoid arthritis, unspecified; I89.0 Lymphedema, not elsewhere classified; R19.5 Other fecal abnormalities; T45.515A Adverse effect of anticoagulants, initial encounter; T45.525A Adverse effect of antithrombotic drugs, initial encounter; T50.1X5A Adverse effect of loop [high-ceiling] diuretics, initial encounter; G89.4 Chronic pain syndrome; Y95 Nosocomial condition; Z79.02 Long term (current) use of antithrombotics/antiplatelets; Z88.0 Allergy status to penicillin; Z79.82 Long term (current) use of aspirin; Z86.73 Personal history of transient ischemic attack (TIA), and cerebral infarction without residual deficits; Z87.891 Personal history of nicotine dependence; Z20.828 Contact with and (suspected) exposure to other viral communicable diseases
CPT/HCPCS: J0692; P9016

== ENCOUNTER 2019-06-29 | Inpatient (IN) | payer MEDICARE, BC ==
[~2019-06-29] VITALS: Ht 157.5 cm; Wt 80.0 kg
[~2019-06-29] MED LIST changes: +DOXYCYCLINE100 MG PO; +LORATADINE10 M1 PO; +MIRALAX3350 NF PO; +PRADAXA75 MG PO
--- NOTE | 2019-06-29 00:01 | NUR ---
BY EMS TO ROOM
--- NOTE | 2019-06-29 00:30 | NUR ---
LOUD SYSTOLIC MURMUR NOTED.
[2019-06-29 00:49] LABS: HEMATOCRIT 33.2 % (37.0-47.0); HEMOGLOBIN 9.7 g/dl (12.0-16.0); IMMATURE GRANULOCYTES 0.2 % (0.0-5.0); MEAN CELL VOLUME 89.2 fL CALC (80.0-100.0); MEAN CORPUSCULAR HGB 26.1 pG CALC (26.0-32.0); MEAN CORPUSCULAR HGB CONC 29.2 g/dL CAL (32.0-36.0); NEUT# 6.78 thou/uL (2.00-7.15); RED BLOOD COUNT 3.72 mill/uL (4.20-5.60); RED CELL DISTRI WIDTH 19.9 % (11.5-15.5)
--- NOTE | 2019-06-29 00:54 | NUR ---
ATTENDS REMOVED AND PURE-WICK APPLIED TO SUCTION. TOLERATED WELL.
[2019-06-29 01:02] LABS: ALBUMIN 3.9 g/dL (3.2-5.0); ALKALINE PHOSPHATASE 105 u/l (38-126); ANION GAP 11 (6-22 (CALC)); BILIRUBIN, TOTAL 0.5 mg/dL (0.0-1.4); BUN 36 mg/dL (8-23); BUN/CREATININE RATIO 32 (12-20 (CALC)); CARBON DIOXIDE 34 mmol/l (22-30); CHLORIDE 93 mmol/l (95-108); CREATININE 1.1 mg/dL (0.5-1.0); GFR 47 ML/MIN (>=60 (CALC)); GFR FOR AFR.AMER. 57 ML/MIN (>=60 (CALC)); POTASSIUM 4.2 mmol/l (3.5-5.1); SGOT/AST 23 u/l (9-36); SODIUM 133 mmol/l (137-146); TOTAL PROTEIN 7.1 g/dL (6.3-8.2)
[2019-06-29 01:14] LABS: MYOGLOBIN 127 ng/mL (0 - 62)
[2019-06-29 01:26] LABS: INTERNATIONAL NORMALIZED RATIO 1.1 RATIO (0.7-1.3); PROTHROMBIN TIME 11.1 SECONDS (9.0-12.5)
--- NOTE | 2019-06-29 01:45 | NUR ---
RESTING QUIETLY. NAD.
--- NOTE | 2019-06-29 02:30 | NUR ---
NO CHANGE NOTED. NAD. RESTING WELL.
--- NOTE | 2019-06-29 03:15 | NUR ---
AWAITING ROOM ASSIGNMENT. NO CHANGE IN PT EXAM.
[2019-06-29 04:00] VITALS: BP 121/56
--- NOTE | 2019-06-29 04:00 | NUR ---
PT RECEIVED TO UNIT FROM ED, ARRIVES ON STRETCHER ACCOMPANIED BY CAROLANN LEE. PT SLIDE-TRANSFERRED TO BED. ADMISSION AND ASSESMENT COMPLETE. PT ORIENTED TO ROOM AND UNIT. PLAN OF CARE REVIEWED. PT VERBALIZES UNDERSTANDING AND DENIES NEEDS. CALL RDZ WITHIN REACH, AGREES TO CALL PRN. BED LOCKED IN LOW POSITION W/ BEDRAILS UP X2. ITEMS WITHIN REACH.
--- NOTE | 2019-06-29 04:00 | NUR ---
Admission Note Report Given to: KEELY Transported by: Wheelchair X Stretcher Transported with: X Nurse Transporter X Patent IV X O2 X Community Fundraiser Location: ICU X MS2 TRANSPORTED WITH MASK IN PLACE.
[2019-06-29 04:29] LABS: URINE BILIRUBIN - DIPSTICK NEGATIVE (NEGATIVE); URINE BLOOD DIPSTICK TRACE-INTACT (NEGATIVE); URINE COLOR YELLOW; URINE GLUCOSE - DIPSTICK NEGATIVE (NEGATIVE); URINE KETONE NEGATIVE (NEGATIVE); URINE PROTEIN - DIPSTICK NEGATIVE (NEG-TRACE); URINE UROBILINOGEN - DIPSTICK 0.2 E.U./dL (0.2)
[2019-06-29 04:35] LABS: URINE LEUK ESTERASE SMALL (NEGATIVE)
[2019-06-29 04:36] LABS: URINE NITRITE - DIPSTICK NEGATIVE (Negative)
[2019-06-29 04:37] LABS: URINE BACTERIA MODERATE hpf; URINE EPITHELIAL CELLS MODERATE EPI/hpf (0-FEW)
--- NOTE | 2019-06-29 06:20 | NUR ---
PT APPEARS TO BE SLEEPING COMFORTABLY, NO APPARENT DISTRESS. RESPIRATIONS REGULAR AND UNLABORED. CALL RDZ REMAINS WITHIN REACH. BED REMAINS LOCKED IN LOW POSITION W/ BEDRAILS UP X2. ITEMS REMAIN WITHIN REACH.
--- NOTE | 2019-06-29 07:30 | NUR ---
REPORT RECEIVED FROM RT KEELY. PT RESTING IN BED SEMI FOWLES WITH EYES CLOSED; VERY DROWSY, BUT DOES OPEN EYES AND RESPOND TO QUESTIONS. DENIES PAIN. RESPIRATIONS EVEN AND UNLABORED ON ROOM AIR. VSS. ON AIRBORNE/CONTACT PRECAUTIONS PENDING COVID TEST RESULTS. ATTEMPTED TO OBTAIN TROPONIN LAB WIT MULTIPLE ATTEMPTS; UNSUCCESSFUL. SAFETY MEASURES IN PLACE. CALL LIGHT WITHIN REACH.
[2019-06-29 08:00] VITALS: BP 131/61
--- NOTE | 2019-06-29 08:30 | NUR ---
ATTEMPTED FINGERSTICK BLOOD COLLECTION WITHOUT SUCCESS. TRAMADOL GIVEN WITH AM MEDICATIONS FOR S/S OF GENERALIZED PAIN.
[2019-06-29 11:05] VITALS: BP 110/63
--- NOTE | 2019-06-29 12:24 | NUR ---
DR. THOMAS AT BEDSIDE.
--- NOTE | 2019-06-29 13:52 | NUR ---
PT TRANSPORTED TO CT VIA STRETHCER IN STABLE CONDITION. MOVED TO ROOM 270 ON STANDARD PRECAUTIONS. RT AT BEDSIDE FOR ABG.
--- NOTE | 2019-06-29 15:20 | NUR ---
S: RONALD PUGH is a 83 F who presents with SOB. She has a history of HCAP AND CHF. All medications in patient's chart were reviewed. O: VS: BP 110/63, P 87, RR 16,T 97.7 W 85kg, HT 62IN, Scr=1.1 ,CrCl= 38ml/min A: Blood culture is pending Urine culture is pending P: Patient is on CEFEPIME 1 GRAM BID. Vancomycin ordered for pharmacy to dose. Start Vancomycin 1250MG IV Q24H. Vancomycin trough is drawn before the 4th dose on 07/02/19 @1230. Vancomycin goal trough is between 15-20 mcg/mL. Pharmacy will follow and or advise on antibiotics use as needed. CAROLANN CASTRO PHARMD
[2019-06-29 16:00] VITALS: BP 120/69
--- NOTE | 2019-06-29 16:43 | NUR ---
PT CONSTANTLY YELLING "HELP ME HELP ME." PT FOUND DOWN IN THE BED WITH FEET TOUCHING FOOT BOARD AND IV SITE DISLODGED AND LAYING ON BEDSIDE TABLE. PT STATES, "I THINK IM GOING CRAZY." DISORIENTED AND KEEPS EYES CLOSED, BUT DOES ANSWER QUESTIONS. REPOSITIONED UP IN BED.
--- NOTE | 2019-06-29 18:12 | NUR ---
NEW IV SITE PLACED TO LFA AND TROPONIN OBTAINED AND SENT TO LAB. PT RESTING MORE QUIELTY. HYPERTENSIVE. NOTIFIED AND NEW ORDERS RECEIVED.
[2019-06-29 19:22] VITALS: BP 157/76
--- NOTE | 2019-06-29 21:30 | NUR ---
pt resting in bed. respirations even and unlabored on ra. lungs sound diminished. pedal pulses strong. pt denies any pain or discomfort at this time. safety precautions in place. will continue to monitor.
--- NOTE | 2019-06-29 23:20 | NUR ---
REPORT RECEIVED FROM ROSA SANCHEZ. PT RESTING IN BED. RESPIRATIONS EVEN AND UNLABORED LUNGS SOUND DIMINISHED. PEDAL PULSES STRONG. PT DENIES ANY PAIN OR DISCOMFORT AT THIS TIME. WILL CONTINUE TO MONITOR.
--- NOTE | 2019-06-30 00:12 | NUR ---
PT ATTEMPTING TO GET OUT OF BED. PT REORIENTED AND ASSISTED BACK INTO BED. SAFETY PRECAUTIONS IN PLACE. WILL CONTINUE TO MONITOR.
[2019-06-30 00:13] VITALS: BP 118/59
--- NOTE | 2019-06-30 04:01 | NUR ---
PT RESTING IN BED. NO S/S OF DISTRESS AT THIS TIME. SAFETY PRECAUTIONS IN PLACE. WILL CONTINUE TO MONITOR.
[2019-06-30 05:05] VITALS: BP 140/67
[2019-06-30 07:34] VITALS: BP 154/64
--- NOTE | 2019-06-30 07:34 | NUR ---
PT RESTING IN BED, NO SIGNS OF DISTRESS NOTED, RESP EVEN AND UNLABORED. DISCUSSED POC, PT DENIES ANY NEEDS OR COMPLAINTS AT THIS TIME. CONFUSION AT TIMES, BED ALARM FOR SAFETY. ASSESSMENT COMPLETED, CALL LIGHT IN REACH,CONTINUE TO MONITOR.
--- NOTE | 2019-06-30 10:56 | NUR ---
RECEIVED CALL FROM OLVIN IN LAB. COVID SWAB IS NEGATIVE.
[2019-06-30 11:01] VITALS: BP 119/54
--- NOTE | 2019-06-30 11:37 | NUR ---
PT GROANING IN PAIN, DECLINED FOOD TRAY, PT MEDICATED PER MAY. CALL LIGHT IN REACH,BED ALARM FOR SAFETY, CONTINUE TO MONITOR.
[2019-06-30 14:55] VITALS: BP 127/47
--- NOTE | 2019-06-30 15:59 | NUR ---
PT RESTING IN BED, NO SIGNS OF DISTRESS NOTED, RESP EVEN AND UNLABORED, BED ALARM FOR SAFETY, CALL LIGHT IN REACH,CONTINUE TO MONITOR.
--- NOTE | 2019-06-30 19:05 | NUR ---
REPORT RECEIVED FROM PAULETTE EASTON. PT RESTING IN RECLINER. NO S/S OF DISTRESS AT THIS TIME. SAFETY PRECAUTIONS IN PLACE. WILL CONTINUE TO MONITOR.
[2019-06-30 19:43] VITALS: BP 105/51
--- NOTE | 2019-06-30 21:30 | NUR ---
PT RESTING IN RECLINER, RESPIRATIONS EVEN AND UNLABORED ON O2 @ 2L VIA NC. LUNGS SOUND DIMINISHED. PEDAL PULSES STRONG. PT DENIES ANY PAIN OR DISCOMFORT AT THIS TIME. BEDALARM ACTIVE AT THIS TIME FOR PT SAFETY. WILL CONTINUE TO MONITOR.
--- NOTE | 2019-07-01 00:20 | NUR ---
PT RESTING IN RECLINER, RESPIRATIONS EVEN AND UNLABORED ON O2 @ 2L VIA NC. NO S/S OF DISTRESS AT THIS TIME. WILL CONTINUE TO MONITOR.
--- NOTE | 2019-07-01 04:19 | NUR ---
PT RESTING IN BED NO S/S OF DISTRESS AT THIS TIME, SAFETY PRECAUTIONS IN PLACE. WILL CONTINUE TO MONITOR.
[2019-07-01 04:33] VITALS: BP 146/76
[2019-07-01 05:11] LABS: HEMATOCRIT 34.5 % (37.0-47.0); HEMOGLOBIN 10.1 g/dl (12.0-16.0); IMMATURE GRANULOCYTES 0.3 % (0.0-5.0); MEAN CORPUSCULAR HGB 26.6 pG CALC (26.0-32.0); MEAN CORPUSCULAR HGB CONC 29.3 g/dL CAL (32.0-36.0); NEUT# 7.91 thou/uL (2.00-7.15); RED BLOOD COUNT 3.79 mill/uL (4.20-5.60); RED CELL DISTRI WIDTH 20.3 % (11.5-15.5)
[2019-07-01 05:21] LABS: ALBUMIN 3.7 g/dL (3.2-5.0); ALKALINE PHOSPHATASE 78 u/l (38-126); ANION GAP 14 (6-22 (CALC)); BILIRUBIN, TOTAL 0.7 mg/dL (0.0-1.4); BUN 36 mg/dL (8-23); BUN/CREATININE RATIO 46 (12-20 (CALC)); CARBON DIOXIDE 29 mmol/l (22-30); CHLORIDE 97 mmol/l (95-108); CREATININE 0.8 mg/dL (0.5-1.0); GFR > 60 ML/MIN (>=60 (CALC)); GFR FOR AFR.AMER. > 60 ML/MIN (>=60 (CALC)); POTASSIUM 4.5 mmol/l (3.5-5.1); SODIUM 136 mmol/l (137-146); TOTAL PROTEIN 6.9 g/dL (6.3-8.2)
[2019-07-01 05:31] LABS: SGOT/AST 45 u/l (9-36)
[2019-07-01 07:39] VITALS: BP 140/60
--- NOTE | 2019-07-01 07:39 | NUR ---
PT RESTING IN BED EATING BREAKFAST, NO SIGNS OF DISTRESS NOTED, RESP EVEN AND UNLABORED. PT ALERT TO SELF, ASSESSMENT COMPLETED, CALL LIGHT IN REACH,CONTINUE TO MONITOR.
--- NOTE | 2019-07-01 09:14 | NUR ---
PT IN BED, NEWSCAST DIRECTOR COMPLETED BED BATH AND LINEN CHANGE. PT C/O GENERALIZED PAIN, MEDICATED PER MAR. NO SIGNS OF DISTRESS NOTED, RESP EVEN AND UNLABORED. CALL LIGHT IN REACH, BED ALARM FOR SAFETY, CONTINUE TO MONITOR.
[2019-07-01 11:07] VITALS: BP 112/53
--- NOTE | 2019-07-01 13:00 | NUR ---
PT RESTING IN BED, ASKING BEAN WEIGHER IF SHE'S OK, PT CONFUSED. REMAINS IN BED, VANCO INFUSION INITIATED. CALL LIGHT IN REACH,CONTINUE TO MONITOR.
[2019-07-01 15:29] VITALS: BP 117/64
--- NOTE | 2019-07-01 17:55 | NUR ---
PT RESTING IN BED EATING DINNER, NO SIGNS OF DISTRESS NOTED, RESP EVEN AND UNLABORED. CALL LIGHT IN REACH, BED ALARM FOR SAFETY, CONTINUE TO MONITOR.
[2019-07-01 18:52] VITALS: BP 125/61
--- NOTE | 2019-07-01 19:03 | NUR ---
REPORT RECEIVED FROM PAULETTE EASTON. PT RESTING IN BED, NO S/S OF DISTRESS AT THIS TIME. SAFETY PRECAUTIONS IN PLACE. BED ALARM ACTIVE FOR PT SAFETY. WILL CONTINUE TO MONITOR.
--- NOTE | 2019-07-01 20:43 | NUR ---
PT RESTING IN BED, WITH EYES CLOSED. RESPIRATIONS EVEN AND UNLABORED ON O2 @ 2L VIA NC. LUNGS SOUND DIMINISHED. PEDAL PULSES WEAK. #20 LLL PATENT AND APPEARS HEALTHY. BED ALARM ACTIVE FOR PT SAFETY. WILL CONTINUE TO MONITOR.
[2019-07-02] VITALS (7 sets, daily range): BP systolic 123–157; BP diastolic 58–79
--- NOTE | 2019-07-02 00:44 | NUR ---
PT RESTING IN RECLINER. NO S/S OF DISTRESS AT THIS TIME, SAFETY PRECAUTIONS IN PLACE. WILL CONTINUE TO MONITOR.
--- NOTE | 2019-07-02 04:42 | NUR ---
PT RESTING IN BED, NO S/S OF DISTRESS AT THIS TIME. TELE IN PLACE. WILL CONTINUE TO MONITOR.
--- NOTE | 2019-07-02 07:20 | NUR ---
CHANGE OF SHIFT REPORT RECEIVED FROM SN PHILLIP. PT SLEEPING. RESPIRATION EVEN AND UNLABORED. NEURO UROLOGIST WILL CONTINUE TO MONITOR.
--- NOTE | 2019-07-02 12:00 | NUR ---
PT SITTING IN HIGHFOWLER EATING LUNCH. NO SIGN OR SYMTOMS OF PAIN OR AGITATION. JUDICIAL CLERK WILL CONTINUE TO MONITOR. CALL LIGHT WITHIN EASY REACH, BED IN LOWEST POSITION, BED ALARM ON
--- NOTE | 2019-07-02 13:25 | NUR ---
VANCOMYCIN ORDERED FOR PHARMACY TO DOSE. PT IS BEING TREATED FOR UNRESOLVED HCAP. VANCOMYCIN TROUGH GOAL = 15-20 MCG/ML. PT WAS RECEIVING 1250MG IV Q24H. TROUGH OBTAINED = 11 MCG/ML. INCREASE TO 750MG Q12H. DRAW TROUGH 30 MIN PRIOR TO 4TH DOSE ON 07/03 @ 0130. PHARMACY WILL CONTINUE TO FOLLOW.
--- NOTE | 2019-07-02 15:48 | NUR ---
PT CONTINUES ON ANTIBIOTIC FOR PNEUMONIA. PT CAN MAKE SOME NEEDS KNOWN. PT REORIENTED TO CALL BUTTON. PT REPOSITIONED FOR COMFORT. ENVIRONMENTAL CONSULTANT WILL CONTINUE TO MONITOR
--- NOTE | 2019-07-02 20:00 | NUR ---
PATIENT RESTING IN BED-AWAKE BUT CONFUSED TO PLACE AND TIME. O2 VIA NASAL CANNULA IN PLACE AT 2KLPM. TELE MONITOR IN PLACE. IV SITE TO LLE IS REDAND SWOLLEN. SITE D/C'ED. NEW IV SITE STARTED TO LEFT HAND-#24 GAUGE WITH GOOD BLOOD RETURN. PURE WICK IN PLACE BUT NO URINE AT THIS TIME. ATTEMPTED TO REORIENT PATIENT TO PLACE AND TIME WITH LITTLE SUCCESS. BED ALARM IN PLACE FOR PATIENT SAFETY. SAFETY PRECAUTIONS IN PLACE. CALL LIGHT IN REACH. WILL CONT TO MONITOR.
--- NOTE | 2019-07-03 00:09 | NUR ---
PATIENT APPEARS SLEEPING WITH O2 VIA NASAL CANNULA IN PLACE. EYES ARE CLOSED-RESPS ARE EVEN AND UNLABORED AT THIS TIME. CALL LIGHT IN REACH. WILL CONT TO MONITOR.
--- NOTE | 2019-07-03 01:33 | NUR ---
PATIENT RESTING IN BED-[facility] ORDERED VIA LEFT HAND SITE. PUREWICK IS DRAINING YELLOW URINE. TELE MONITOR IN PLACE. BED ALARM IN PLACE FOR PATIENT SAFETY. SAFETY PRECAUTIONS REINFORCED. CALL LIGHT IN REACH. WILL CONT TO MONITOR.
[2019-07-03 03:44] VITALS: BP 174/74
--- NOTE | 2019-07-03 04:18 | NUR ---
PATIENT RESTING IN BED-REMAINS CONFUSED TO PLACE AND TIME. VANCO FINISHED AND SALINE LOCK TO LEFT HAND FLUSHED. O2 VIA NASAL CANNULA IN PLACE. TELE MONITOR IN PLACE. PURE WICK DRAINING YELLOW URINE. BED ALARM IN PLACE FOR PATIENT SAFETY. SAFETY PRECAUTIONS REINFORCED. CALL LIGHT IN REACH. WILL CONT TO MONITOR.
[2019-07-03 05:09] LABS: HEMATOCRIT 33.5 % (37.0-47.0); HEMOGLOBIN 9.4 g/dl (12.0-16.0); IMMATURE GRANULOCYTES 0.3 % (0.0-5.0); MEAN CELL VOLUME 93.1 fL CALC (80.0-100.0); MEAN CORPUSCULAR HGB 26.1 pG CALC (26.0-32.0); MEAN CORPUSCULAR HGB CONC 28.1 g/dL CAL (32.0-36.0); NEUT# 8.1 thou/uL (2.00-7.15); RED BLOOD COUNT 3.6 mill/uL (4.20-5.60); RED CELL DISTRI WIDTH 20.1 % (11.5-15.5)
[2019-07-03 05:28] LABS: ANION GAP 7 (6-22 (CALC)); BUN 24 mg/dL (8-23); BUN/CREATININE RATIO 44 (12-20 (CALC)); CHLORIDE 100 mmol/l (95-108); CREATININE 0.5 mg/dL (0.5-1.0); GFR > 60 ML/MIN (>=60 (CALC)); GFR FOR AFR.AMER. > 60 ML/MIN (>=60 (CALC)); POTASSIUM 4.1 mmol/l (3.5-5.1); SODIUM 138 mmol/l (137-146)
[2019-07-03 05:30] LABS: CARBON DIOXIDE 35 mmol/l (22-30)
--- NOTE | 2019-07-03 07:20 | NUR ---
CHANGE OF SHIFT REPORT RECEIVED FROM ROSA PERES. PT TRANSFERRED TO RECLINER THIS AM FOR BREAKFAST. CALL LIGHT WITHIN EASY REACH
[2019-07-03 09:03] VITALS: BP 118/74
[2019-07-03] MEDS ORDERED: DOXYCYCL HYC100 MG PO (09:05)
--- NOTE | 2019-07-03 09:15 | NUR ---
[facility]G CALLED TO FOLLOW UP ON PT'S DISCHARGE ORDERS. POC REVIEWED WITH PT'S DAUGHTER. AIRFREIGHT OPERATIONS AGENT REVIEWED ANTIBIOTICS FOR UTI AND PNEUMONIA. PT IS A POSSIBLE DISCHARGE TODAY. PT CO-OPERATIVE ALERT AND PLEASANT. ABLE TO MAKE SOME NEEDS KNOWN.NO S/S OF DISTRESS
[2019-07-03 11:17] VITALS: BP 108/45
--- NOTE | 2019-07-03 12:47 | NUR ---
PT SITTING UP TO EAT LUNCH. PT ON AT 2LPM [place] RODRIGUEZ. NO S/S OF DISTRESS OR AGITATION. CASE MANAGEMENT WORKING ON DISCHARGE. DRY KILN FEEDER WILL CONTINUE TO MONIOTR PT. CALL LIGHT WITHIN EASY REACH BED IN LOWEST POSITION
--- NOTE | 2019-07-03 15:06 | NUR ---
APPRENTICE PLUMBER NOTIFIED DOMO ROE OF DISCAHRGE ORDER TO [facility] THIS PM WITH APPROXIMATE ACID CONDENSER TIME OF 4PM. APPRENTICE PLUMBER ATTEMPTED TO GIVE REPORT TO NURSE AT [facility]. PER ANITA,PURCHASE PRICE ANALYST, NURSE NOT AVAILABLE AT THIS TIME. APPRENTICE PLUMBER LEFT NAME AND CALL BACK NUMBER
[2019-07-03 15:10] VITALS: BP 154/56
--- NOTE | 2019-07-03 16:08 | NUR ---
Discharge instructions given. Patient verbalizes understanding of same. Discharged in fair condition via Wheelchair to [facility] with STAFF. All belongings sent with pt. REPORT GIVEN TO SN ADRIANO AT [facility]. ZENY AT [facility] NOTIFIED THAT BHUPINDER OLIVEROS REQUESTING THAT [facility] DELIVER CLOTHES TO [facility] FOR PT. SARA VEBALIZED UNDERSTANDING
== END 2019-07-03 16:05 | DRG 205 ==
LOC: ED → ED-I 02:57 → ED 03:13 → ED-I 03:14 → MS2 03:14
PROVIDERS: Emergency Medicine; Internal Medicine; Nurse Practitioner Family; ADMIT Internal Medicine; ATTEND Internal Medicine
DX: J70.4 Drug-induced interstitial lung disorders, unspecified (principal); J96.22 Acute and chronic respiratory failure with hypercapnia; J96.21 Acute and chronic respiratory failure with hypoxia; L03.116 Cellulitis of left lower limb; L03.115 Cellulitis of right lower limb; T46.2X5A Adverse effect of other antidysrhythmic drugs, initial encounter; T45.1X5A Adverse effect of antineoplastic and immunosuppressive drugs, initial encounter; I10 Essential (primary) hypertension; I50.9 Heart failure, unspecified; E78.5 Hyperlipidemia, unspecified; I48.91 Unspecified atrial fibrillation; G89.4 Chronic pain syndrome; J44.9 Chronic obstructive pulmonary disease, unspecified; M06.9 Rheumatoid arthritis, unspecified; F03.90 Unspecified dementia, unspecified severity, without behavioral disturbance, psychotic disturbance, mood disturbance, and anxiety; Z86.73 Personal history of transient ischemic attack (TIA), and cerebral infarction without residual deficits; Z87.891 Personal history of nicotine dependence; Z20.828 Contact with and (suspected) exposure to other viral communicable diseases
CPT/HCPCS: J0692; J3370

== ENCOUNTER 2019-08-09 23:23 | Observation (INO) | payer MEDICARE, BC ==
[~2019-08-09] VITALS: Ht 157.5 cm; Wt 79.2 kg
[~2019-08-09 23:23] MED LIST changes: +DOXYCYCL HYC100 MG PO
--- NOTE | 2019-08-09 23:24 | NUR ---
PATIENT TO ROOM 10 VIA EMS STRETCHER. UNDRESSED INTO A GOWN, PLACED ON MONITOR. TRAIGE COMPLETED TO BEST OF RN ABILITY. PATIENT C/O COUGH, DIFFICULTY URINATING, AND LEFT LEG PAIN. EMS STATES PATIENT C/O CHEST PAIN.
[2019-08-10] VITALS (7 sets, daily range): BP systolic 107–132; BP diastolic 45–88
[2019-08-10 00:04] LABS: HEMATOCRIT 27.9 % (37.0-47.0); HEMOGLOBIN 8.3 g/dl (12.0-16.0); IMMATURE GRANULOCYTES 0.5 % (0.0-5.0); MEAN CELL VOLUME 87.7 fL CALC (80.0-100.0); MEAN CORPUSCULAR HGB 26.1 pG CALC (26.0-32.0); MEAN CORPUSCULAR HGB CONC 29.7 g/dL CAL (32.0-36.0); NEUT# 8.88 thou/uL (2.00-7.15); RED BLOOD COUNT 3.18 mill/uL (4.20-5.60)
[2019-08-10 00:18] LABS: ACT PARTIAL THROMBO TIME 28.9 SECONDS (20.0-32.5); INTERNATIONAL NORMALIZED RATIO 1.1 RATIO (0.7-1.3); PROTHROMBIN TIME 11.6 SECONDS (9.0-12.5)
--- NOTE | 2019-08-10 00:20 | NUR ---
UNABLE TO COLLECT URINE SAMPLE AT THIS TIME.
[2019-08-10 00:21] LABS: ALBUMIN 3.1 g/dL (3.2-5.0); ALKALINE PHOSPHATASE 113 u/l (38-126); BUN 34 mg/dL (8-23); BUN/CREATININE RATIO 33 (12-20 (CALC)); CHLORIDE 93 mmol/l (95-108); GFR 53 ML/MIN (>=60 (CALC)); GFR FOR AFR.AMER. > 60 ML/MIN (>=60 (CALC)); POTASSIUM 4.3 mmol/l (3.5-5.1); SGOT/AST 23 u/l (9-36); TOTAL PROTEIN 6.8 g/dL (6.3-8.2)
--- NOTE | 2019-08-10 00:21 | NUR ---
ULTRASOUND AT BEDSIDE
[2019-08-10 00:33] LABS: MYOGLOBIN 59 ng/mL (0 - 62)
[2019-08-10 00:41] LABS: ANION GAP 11 (6-22 (CALC)); BILIRUBIN, TOTAL 0.4 mg/dL (0.0-1.4); CARBON DIOXIDE 27 mmol/l (22-30); SODIUM 127 mmol/l (137-146)
--- NOTE | 2019-08-10 01:10 | NUR ---
URINE COLLECTED BY STRAIGHT CATH, PATIENT BLADDER DRAINED OF 1200 DARK YELLOW FOUL SMELLING URINE, SAMPLE SENT TOT HE LAB FOR EVALUATION.
[2019-08-10 01:17] LABS: URINE BILIRUBIN - DIPSTICK NEGATIVE (NEGATIVE); URINE BLOOD DIPSTICK NEGATIVE (NEGATIVE); URINE COLOR YELLOW; URINE GLUCOSE - DIPSTICK NEGATIVE (NEGATIVE); URINE KETONE NEGATIVE (NEGATIVE); URINE LEUK ESTERASE MODERATE (NEGATIVE); URINE PROTEIN - DIPSTICK NEGATIVE (NEG-TRACE); URINE UROBILINOGEN - DIPSTICK 0.2 E.U./dL (0.2)
[2019-08-10 01:18] LABS: URINE NITRITE - DIPSTICK NEGATIVE (Negative)
--- NOTE | 2019-08-10 01:20 | NUR ---
PATIENT RESTING QUIETLY AT THIS TIME, NO C/O PAIN OR DISCOMFORT, NO S/S OF DISTRESS NOTED, RESPIRATIONS EVEN AND UNLABORED. O2@2L NC.
[2019-08-10 01:22] LABS: URINE WBC >100 WBC/hpf (0-5)
[2019-08-10 01:23] LABS: URINE BACTERIA MANY hpf; URINE EPITHELIAL CELLS MODERATE EPI/hpf (0-FEW)
--- NOTE | 2019-08-10 01:35 | NUR ---
SECOND SET OF BLOOD CULTURES DRAWN BEFORE ANTIBIOTIC ADMINISTRATION
--- NOTE | 2019-08-10 02:09 | NUR ---
HAND OFF REPORT GIVEN TO ROB, PATIENT PLACED ON PORTABLE DRAPERY WORKER. PATIENT RESTING EYES CLOSED.
--- NOTE | 2019-08-10 02:45 | NUR ---
pt arrived [facility] via stretcher accompanied by ed nurse. Pt appears to be stable at this time. Pt was unable to self transfer, reports being incontinent, pt cleaned of small brown loose stool. purewick put in place for urine collection. pt positioned for comfort. v/s have been assessed. groin area mildly red, skin appears intact otherwise. lung sounds are course, breathing labored w/exertion. 02 sat levels 100% on 2L, 02 turned to 1L, will reassess.
[2019-08-10 09:23] LABS: CHOLESTEROL HDL RATIO 2.5 (<4.4 (CALC))
--- NOTE | 2019-08-10 10:42 | NUR ---
PT SEEN RESTING IN THE BED, NO ACUTE DISTRESS NOTED. PT IS PERHAPS A BIT CONFUSED BUT IS INTERACTIVE CONVERSATIONALLY. DAUGHTER BHUPINDER HAS CALLED AND WAS UPDATED ON PT'S CONDITION. LUNGS DIMINISHED, 3 LPM NC. SMALL BM DURING OIL FURNACE INSTALLER. NO COMPLAINTS OF CHEST PAIN OR SHORTNESS OF BREATH.
--- NOTE | 2019-08-10 12:40 | NUR ---
PT CONTINUES BEFORE, APPEARS MORE AWAKE AT THIS TIME, HAS JUST FINISHED WITH LUNCH. ROCEPHIN HUNG AT THIS TIME.
--- NOTE | 2019-08-10 14:30 | NUR ---
PT SEEN WITHOUT URINE OUTPUT, BLADDER SCAN SHOWED >999. DR MARTHA VINSONED THE PLACEMENT OF FINN CATHETER. STEFANIA PULMONOLOGIST INTENSIVIST PLACED 16F WITHOUT A PROBLEM, RETURNED 1800 ML CLOUDY URINE.
--- NOTE | 2019-08-10 16:09 | NUR ---
PT note I screened the patient and she would benefit from PT if medical agrees
--- NOTE | 2019-08-10 20:15 | NUR ---
PHYSICAL ASSESMENT COMPLETE. VS TAKEN BY ALVIN @ 191 ASSESSED. PLAN OF CARE REVIEWED.PT VERBALIZES UNDERSTANDING/DENIES QUESTION @ THIS TIME. MEDICATED FOR GENERALIZED BODY ACHES,SEE MAR. PT DENIES FURTHER NEEDS @ THIS TIME. ITEMS WITHIN PT'S REACH. BED LOCKED IN LOW POSITION W/ BEDRAILS UP X2. CALL RDZ WITHIN REACH, PT AGREES TO CALL PRN.
--- NOTE | 2019-08-11 01:56 | NUR ---
PT APPEARS TO BE SLEEPING COMFORTABLY. NO APPARENT DISTRESS. RESPIRATIONS REGULAR AND UNLABORED. ITEMS REMAIN WITHIN REACH. BED REMAINS LOCKED IN LOW POSITION W/ BEDRAILS UP X2. CALL RDZ REMAINS WITHIN REACH.
--- NOTE | 2019-08-11 05:18 | NUR ---
PT RESTING COMFORTALY IN BED. NO APPARENT DISTRESS OR DISCOMFORT. DENIES NEEDS @ THIS TIME. PHYSICAL ASSESMENT REMAINS UNCHANGED FROM START OF SHIFT BASELINE. VSS. ITEMS REMAIN WITHIN REACH. BED REMAINS LOCKED IN LOW POSITION W/ BEDRAILS UPX2. CALL RDZ REMAINS WITHIN REACH, AGREES TO CALL PRN.
[2019-08-11 05:46] VITALS: BP 128/62
[2019-08-11 07:49] VITALS: BP 133/63
--- NOTE | 2019-08-11 10:00 | NUR ---
PT AWAKE, ALERT, TODAY COMPARED TO YESTERDAY'S DROWSINESS. PT DENIES CHEST PAIN OR SHORTNESS OF BREATH. DAUGHTER BHUPINDER UPDATED BY PHONE ON PT'S STATUS.
[2019-08-11 10:37] VITALS: BP 157/53
--- NOTE | 2019-08-11 15:17 | NUR ---
PT SEEN CONFUSED BUT REORIENTS QUICKLY. NO DISTRESS, NO COMPLAINTS, NO ATTEMPTS TO GET OOB.
[2019-08-11 15:45] VITALS: BP 114/60
--- NOTE | 2019-08-11 17:52 | NUR ---
PT CONTINUES CONFUSED, NO ATTEMPTS TO REMOVE IV OR GET OOB. SHE IS EASILY REORIENTED TO PERSON, PLACE AND TIME. MIRALAX PROVIDED PER NO DOCUMENTED BM.
[2019-08-11 18:43] VITALS: BP 111/52
--- NOTE | 2019-08-11 19:51 | NUR ---
PT CONFUSED SETING OFF BED ALARM, TRYING TO GET OUT OF BED. PT REORIENTED. ASSISTED PT INTO BED. RESPIRATIONS EVEN AND UNLABORED ON O2 @ 2L. LUNGS SOUND DIMINISHED. PEDAL PULSES WEAK. BED ALARM ACTIVE FOR PT SAFETY. WILL CONTINUE TO MONITOR.
--- NOTE | 2019-08-12 00:06 | NUR ---
PT RESTING IN BED. NO S/S OF DISTRESS AT THIS TIME. BED ALARM ACTIVE FOR PT SAFETY. WILL CONTINUE TO MONITOR.
[2019-08-12 00:42] VITALS: BP 149/72
[2019-08-12 04:30] VITALS: BP 153/67
--- NOTE | 2019-08-12 04:30 | NUR ---
PT CONFUSED, TRYING TO GET OUT OF BED. PT REORIENTED. VS OBTAINED AND LABS DRAWN AT THIS TIME. SAFETY PRECAUTIONS IN PLACE. WILL CONTINUE TO MONITOR.
[2019-08-12 05:57] LABS: HEMATOCRIT 31.3 % (37.0-47.0); HEMOGLOBIN 9.1 g/dl (12.0-16.0); MEAN CELL VOLUME 88.2 fL CALC (80.0-100.0); MEAN CORPUSCULAR HGB 25.6 pG CALC (26.0-32.0); MEAN CORPUSCULAR HGB CONC 29.1 g/dL CAL (32.0-36.0); RED BLOOD COUNT 3.55 mill/uL (4.20-5.60); RED CELL DISTRI WIDTH 18.6 % (11.5-15.5)
[2019-08-12 06:09] LABS: ANION GAP 11 (6-22 (CALC)); BUN 22 mg/dL (8-23); BUN/CREATININE RATIO 31 (12-20 (CALC)); CARBON DIOXIDE 32 mmol/l (22-30); CHLORIDE 93 mmol/l (95-108); CREATININE 0.7 mg/dL (0.5-1.0); GFR > 60 ML/MIN (>=60 (CALC)); GFR FOR AFR.AMER. > 60 ML/MIN (>=60 (CALC)); POTASSIUM 4.7 mmol/l (3.5-5.1); SODIUM 131 mmol/l (137-146)
--- NOTE | 2019-08-12 07:30 | NUR ---
REPORT RECEIVED FROM ROSA FISHER. PT SITTING UP IN BED SEMI FOWLERS; ALERT AND OREINTED. C/O GENERALIZE DISCOMFORT AND SOME IN HER LEFT ARM. RESPIRTIONS EVEN AND UNLABORED ON ROOM AIR. TELE ON. IV SITE APPEARS HEALTHY AND FLUSHES. PLAN OF CARE REVIEWED. PT ENCOURAGED TO VERBALIZE CONCERNS. STATES UNDERSTANDING. SAFETY MEASURES IN PLACE. CALL LIGHT WITHIN REACH.
[2019-08-12 08:15] VITALS: BP 135/59
--- NOTE | 2019-08-12 08:45 | NUR ---
ULTRAM GIVEN WITH AM MEDS FOR GENERALIZED DISCOMFORT. MERREM INFUSING AT THIS TIME.
--- NOTE | 2019-08-12 10:31 | NUR ---
DAUGHTER CALLED FOR UPDATE; PT NOW SPEAKING WITH HER ON THE PHONE.
--- NOTE | 2019-08-12 10:40 | NUR ---
DR. VASQUEZ AT BEDSIDE FOR EVAL.
[2019-08-12 11:19] VITALS: BP 117/44
[2019-08-12 15:33] VITALS: BP 126/58
--- NOTE | 2019-08-12 15:50 | NUR ---
PT RESTING IN BED SEMI FOWLERS WITH NO SIGNS OF DISTRESS AND EYES CLOSED. RESPIRATIONS EVEN AND UNLABORED ON ROOM AIR. PT ENCOURAGED TO REPOSITION HERSELF IN BED; NEEDS SOME ASSISTANCE. CALL LIGHT WITHIN REACH.
[2019-08-12 20:16] VITALS: BP 129/62
--- NOTE | 2019-08-12 21:00 | NUR ---
PT CONFUSED SITTING IN BED, PT REORIENTED. ASSISTED PT INTO BED. RESPIRATIONS EVEN AND UNLABORED ON O2 @ 2L. LUNGS SOUND DIMINISHED. PEDAL PULSES WEAK. BED ALARM ACTIVE FOR PT SAFETY. WILL CONTINUE TO MONITOR.
[2019-08-13] VITALS (8 sets, daily range): BP systolic 104–176; BP diastolic 45–86
--- NOTE | 2019-08-13 00:01 | NUR ---
PT RESTING IN BED. NO S/S OF DISTRESS AT THIS TIME. TELE IN PLACE. BED ALARM ACTIVE FOR PT SAFETY. WILL CONTINUE TO MONITOR.
--- NOTE | 2019-08-13 04:30 | NUR ---
PT RESTING IN BED. TELE IN PLACE. NO S/S OF DISTRESS AT THIS TIME. SAFETY PRECAUTIONSIN PLACE. WILL CONTINUE TO MONITOR. BED ALARM ACTIVE FOR PT SAFETY.
[2019-08-13 04:56] LABS: HEMATOCRIT 29.7 % (37.0-47.0); HEMOGLOBIN 8.8 g/dl (12.0-16.0); IMMATURE GRANULOCYTES 0.2 % (0.0-5.0); MEAN CELL VOLUME 86.6 fL CALC (80.0-100.0); MEAN CORPUSCULAR HGB 25.7 pG CALC (26.0-32.0); MEAN CORPUSCULAR HGB CONC 29.6 g/dL CAL (32.0-36.0); NEUT# 5.84 thou/uL (2.00-7.15); RED BLOOD COUNT 3.43 mill/uL (4.20-5.60); RED CELL DISTRI WIDTH 18.6 % (11.5-15.5)
[2019-08-13 05:17] LABS: ANION GAP 8 (6-22 (CALC)); BUN 19 mg/dL (8-23); BUN/CREATININE RATIO 32 (12-20 (CALC)); CARBON DIOXIDE 31 mmol/l (22-30); CHLORIDE 93 mmol/l (95-108); CREATININE 0.6 mg/dL (0.5-1.0); GFR > 60 ML/MIN (>=60 (CALC)); GFR FOR AFR.AMER. > 60 ML/MIN (>=60 (CALC)); POTASSIUM 4.5 mmol/l (3.5-5.1); SODIUM 129 mmol/l (137-146)
--- NOTE | 2019-08-13 09:30 | NUR ---
ASSESSMENT AND VITAL COMPLETE AT THIS TIME. BP 176/66, HR 74, O2 92% ON 2L NC. HEART RHYTHM IS NOMRAL. LUNG SOUNDS ARE DIMINISHED, PT DENIES ANY SOB AT THIS TIME. BOWEL SOUNDS ARE ACTIVE IN ALL QUADRANTS, LAST REPORTED BM WAS 08/11/19. IV FLUSHED, SITE APPEARS HEALTHY AND PATENT AT THIS TIME. TELE IN PLACE. RADIAL AND PEDAL PULSES ARE STRONG WITH NORMAL CAPILLARY REFILL. SKIN IS COOL/DRY WITH NO BREAK DOWN. REPORTED CELLULITIS IN LEFT LEG, WARM AND REDNESS. NO SIGNS OF ANY REDNESS OR EDEMA IN LEFT LEG AT THIS TIME. PT DENIES ANY PAIN OR DISCOMFORTS AT THIS TIME ALL SAFTEY PRECAUTIONS IN PLACE WITH CALL LIGHT IN REACH.WILL CONTINUE TO MONITOR.
--- NOTE | 2019-08-13 11:11 | NUR ---
REASSESSMENT OF BP AT THIS TIME. BP 125/71, HR 75, O2 98% ON 3L O2. RESPIORATIONS ARE EVEN AND UNLABORED AT THIS TIME. PT DENIES ANY PAIN OR DISCOMFORTS AT THIS TIME. ALL SFATEY PRECAUTIONS IN PLACE WITH CALL LIGHT IN REACH. WILL CONTINUE TO MONITOR
--- NOTE | 2019-08-13 11:15 | NUR ---
CONSULT OBTAINED AT THIS TIME WITH .
--- NOTE | 2019-08-13 12:00 | NUR ---
PT RESTING IN SEMI CORTES POSITION WATCHING TV. RESPIRATIONS ARE EVEN AND UNLABORED.TELE IN PLACE. PT DENIES ANY PAIN OR DISCOMFORTS AT THIS TIME. ALL SAFTEY PERCAUTIONS IN PLACE WITH CALL LIGHT IN REACH. WILL CONTINUE TO MONITOR
--- NOTE | 2019-08-13 16:31 | NUR ---
PT RESTING IN SEMI FOWLERS POSITION WATCHING TV. RESPIRATIONS ARE EVEN AND UNLABORED. TELE IN PLACE. FINN IN PLACE.BED ALARM IS ACTIVATED. PT DENIES ANY PAIN OR DISCOMFORTS AT THIS TIME. ALL SAFTEY PRECAUTIONS IN PLACEW ITH CALL LIGTH IN REACH.
--- NOTE | 2019-08-13 18:30 | NUR ---
ATTEMPTED TO INSERT NEW IV TWICE, UNSUCCESSFUL BOTH TWICE.
--- NOTE | 2019-08-13 20:27 | NUR ---
PT UP TO BSC, FEELS LIKE SHE NEEDS TO HAVE A BM. PT MEDICATED ORDERS PROVIDE. PT DRINKING PO FLUIDS AT THIS TIME. IV ANTBIOTIC THERAPY ADMINISTERED. ASSESSMENT COMPLETED. ABD DIST SOFT. LUNG SOUNDS ARE DIM THROUGHOUT. PT COUGHING PRODUCTIVE WHITE SPUTUM. PT REPORTS GENERALIZED PAIN/MEDICATED AT THIS TIME FOR PAIN REPORTED 7/10 ON PAIN SCALE, PT POINTING TO BACK AND NECK.
--- NOTE | 2019-08-14 02:15 | NUR ---
PT SLEEPING, NO S/O DISTRESS NOTED.
[2019-08-14 04:10] VITALS: BP 157/54
--- NOTE | 2019-08-14 05:30 | NUR ---
UNABLE TO OBTAIN NEW IV SITE, WILL NOTIFY DAYSHIFT. PT FOUND SITTING ON THE SIDE OF THE BED, STATED SHE WAS TIRED OF LAYING DOWN. PT FIDGETING W/GOWN AND FINN CATHETER. PT REORIENTED AND ASSISTED BACK IN THE BED AND COMFORT MEASURES TAKEN. BED ALARM IS ON AND CALL LIGHT PROVIDED W/IN REACH AND PT REMINDED OF ITS USE. PT DENIES ANY OTHER NEEDS AT THIS TIME.
[2019-08-14 07:30] VITALS: BP 159/66
--- NOTE | 2019-08-14 07:30 | NUR ---
RECIEVED REPORT FROM ROSA RIVAS. WRITTER INFORMED BY ALVIN DURAN THAT PT STATED SHE WAS HAVING CHEST PAIN, UPON ENTERING ROOM PT STATED THAT SHE DID NOT HAVE ANY CHEST PAIN. VITALS COMPLETED AT THIS TIME. BP 159/66, HR 64, O2 90% ON ROOM AIR. RESPIRATIONS ARE EVEN AND UNLABORED AT THIS TIME. PT DENIES ANY PAIN OR DISCOMFORTS AT THIS TIME. ALL SAFTEY PERCAUTIONS IN PLACE WITH CALL LIGHT IN REACH. WILL CONTINUE TO MONITOR.
[2019-08-14 09:20] VITALS: BP 121/38
--- NOTE | 2019-08-14 09:30 | NUR ---
RECIEVED REPORT FROM ROSA RIVAS.PT RESTING IN SEMI FOWLERS UPON ENTERING ROOM. ASSESSMENT AND VITALS COMPLETED AT THIS TIME. BP 121/38. METOPROLOL 50MG, LASIX 20MG, IMDUR 30MG, COZAAR 50 MG, ALDACTONE 50MG, HELD DUE TO BP BEING LOW. HR 70 AND O2 96% ON 3L NC. RESPIRATIONS ARE SHALLOW. LUNG SOUNDS ARE DIMINISHED. BOWEL SOUNDS ARE ACTIVE IN UPPER LOBES, LOWER LOBES ARE HYPOACTIVE.LAST REPORTED BM WAS 08/11/19 PT REQUESTED SOMETHING TO HELP WITH BM. MIRALAX GIVEN.RADIAL AND PEDAL PULSE ARE STRONG WITH NORMAL. NO EDEMA IN LOWER EXTREMITIES, SKIN DOES APPEAR LIGHT PINK RIGHT ABOVE ANKLES. NO SKIN BREAKDOWN. IV WAS PULLED OUT UPON ENTERING ROOM. NEW IV ATTEMPT BY PAULETTE HDEZ, ATTEMPT UNSUCCESSUL. RAYMOND PARRA DISCONTINUED IV MERREM 1 GM DUE TO ANITBIOTICS BEING CHANGED TO PO. PT DENIES ANY PAIN OR DISCOMFORTS AT THIS TIME. ALL SAFTEY PRECAUTIONS IN PLACE WITH CALL LIGHT IN REACH. WILL CONITUE TO MONITOR.
--- NOTE | 2019-08-14 09:38 | NUR ---
PT CURRENT BP 121/38 HR 70,PT ASYMPTOMATIC AT THIS TIME.FIDELANRP NOTIFIED AND NEW ORDERS RECEIVED.WILL CONTINUE TO MONITOR
[2019-08-14] MEDS ORDERED: MACROBID100 MG PO (10:56)
[2019-08-14 11:16] VITALS: BP 112/49
--- NOTE | 2019-08-14 12:00 | NUR ---
PT RESTING IN CHAIR WATCHING TV. RESPIRATIONS ARE SHALLOW. PT RECIEVING 3L O2 NC. FINN CATHATER IN PLACE, PT DENIES ANY DISCOMFORTS. TELE IN PLACE. PT DENIES ANY PAIN OR DISCOMFORTS AT THIS TIME. ALL SAFETY PRECAUTIONS IN PLACE WITH CALL LIGHT IN REACH.WILL CONTINUE TO MONITOR
--- NOTE | 2019-08-14 14:29 | NUR ---
Discharge instructions given. Patient verbalizes understanding of same. Discharged in stable condition via Wheelchair to *Other with staff. All belongings sent with pt. EDUCATED PT ON DISCHARGE INSTRUCTIONS. FINN TO REMAIN IN PLACE FOR ONE WEEK PER DR. THOMAS. PT LEFT WITH ALL BELONGINGS IN STABLE CONDITION VIA WHEELCHAIR, ACCOMPANYIED BY ALVIN ZAMORA AND ALVIN DURAN. DISCHARGE INTRUCSTIONS AND PRESCRIPTION SENT TO [facility].
--- NOTE | 2019-08-15 09:51 | NUR ---
ATTEMPTED TO CALL TEST RESULTS TO MARY. [facility] DIRECTOR NOT IN TODAY.
--- NOTE | 2019-08-15 11:59 | NUR ---
CALLED [facility] AND SPOKE WITH ROSSANA. GAVE NEGATIVE COVID RESULT. VERBALIZED UNDERSTANDING.
== END 2019-08-14 14:26 ==
LOC: ED 23:23 → ED-I 08-10 01:11 → ED 08-10 01:26 → MS2 08-10 01:27 → ED-I 08-10 01:27 → MS2 08-10 01:50
PROVIDERS: Emergency Medicine; Nurse Practitioner Family; ADMIT Internal Medicine; ATTEND Internal Medicine
PROC: 0T9B70Z Drainage of Bladder with Drainage Device, Via Natural or Artificial Opening (ICD-10-PCS; principal; 2019-08-10)
DX: R07.9 Chest pain, unspecified (principal); L03.116 Cellulitis of left lower limb; N39.0 Urinary tract infection, site not specified; E87.1 Hypo-osmolality and hyponatremia; I11.0 Hypertensive heart disease with heart failure; I50.9 Heart failure, unspecified; J44.9 Chronic obstructive pulmonary disease, unspecified; R33.9 Retention of urine, unspecified; I48.0 Paroxysmal atrial fibrillation; E78.5 Hyperlipidemia, unspecified; I89.0 Lymphedema, not elsewhere classified; M06.9 Rheumatoid arthritis, unspecified; F03.90 Unspecified dementia, unspecified severity, without behavioral disturbance, psychotic disturbance, mood disturbance, and anxiety; G89.4 Chronic pain syndrome; B96.20 Unspecified Escherichia coli [E. coli] as the cause of diseases classified elsewhere; Z87.891 Personal history of nicotine dependence; Z86.73 Personal history of transient ischemic attack (TIA), and cerebral infarction without residual deficits; Z16.12 Extended spectrum beta lactamase (ESBL) resistance; Z20.828 Contact with and (suspected) exposure to other viral communicable diseases
CPT/HCPCS: G0378; J1335; Q3014

== ENCOUNTER 2019-12-09 11:14 | Emergency (ER) | payer MEDICARE, BC ==
[~2019-12-09] VITALS: Ht 157.5 cm; Wt 100.0 kg
[~2019-12-09 11:14] MED LIST changes: +MACROBID100 MG PO
[2019-12-09 13:40] VITALS: BP 136/60
[2019-12-09] MEDS ORDERED: SOD CHLORIDE1 G2 OD (16:10)
== END 2019-12-09 13:40 | disposition home or self-care (01) ==
LOC: ED 11:14
DX: S39.012A Strain of muscle, fascia and tendon of lower back, initial encounter (principal); S16.1XXA Strain of muscle, fascia and tendon at neck level, initial encounter; S70.01XA Contusion of right hip, initial encounter; I10 Essential (primary) hypertension; F03.90 Unspecified dementia, unspecified severity, without behavioral disturbance, psychotic disturbance, mood disturbance, and anxiety; W07.XXXA Fall from chair, initial encounter; Y92.009 Unspecified place in unspecified non-institutional (private) residence as the place of occurrence of the external cause; Z86.73 Personal history of transient ischemic attack (TIA), and cerebral infarction without residual deficits; Z20.828 Contact with and (suspected) exposure to other viral communicable diseases

== ENCOUNTER 2019-12-15 23:03 | Observation (INO) | payer MEDICARE, BC ==
[~2019-12-15] VITALS: Ht 152.4 cm; Wt 73.2 kg
[~2019-12-15 23:03] MED LIST changes: +SOD CHLORIDE1 G2 OD
[2019-12-15] MEDS ORDERED: RASUVO25 MG/0.5 SC (23:17)
[2019-12-15] MEDS ORDERED: MONTELUKAST SOD10 MG PO (23:19)
--- NOTE | 2019-12-15 23:34 | NUR ---
THE PATIENT CAME FROM A [facility] WITH C/O CHEST PAIN. SHE WAS GIVEN ASPIRIN BY EMS PRIOR TO ARRIVAL.
[2019-12-15 23:51] LABS: HEMATOCRIT 36.4 % (37.0-47.0); HEMOGLOBIN 10.5 g/dl (12.0-16.0); IMMATURE GRANULOCYTES 0.3 % (0.0-5.0); MEAN CELL VOLUME 92.2 fL CALC (80.0-100.0); MEAN CORPUSCULAR HGB 26.6 pG CALC (26.0-32.0); MEAN CORPUSCULAR HGB CONC 28.8 g/dL CAL (32.0-36.0); RED BLOOD COUNT 3.95 mill/uL (4.20-5.60)
[2019-12-16] LABS: ALKALINE PHOSPHATASE 123 u/l (38-126); ANION GAP 12 (6-22 (CALC)); BILIRUBIN, TOTAL 0.5 mg/dL (0.0-1.4); BUN 26 mg/dL (8-23); BUN/CREATININE RATIO 35 (12-20 (CALC)); CARBON DIOXIDE 33 mmol/l (22-30); CHLORIDE 90 mmol/l (95-108); CREATININE 0.7 mg/dL (0.5-1.0); GFR > 60 ML/MIN (>=60 (CALC)); GFR FOR AFR.AMER. > 60 ML/MIN (>=60 (CALC)); POTASSIUM 4.3 mmol/l (3.5-5.1); SGOT/AST 26 u/l (9-36); SODIUM 130 mmol/l (137-146); TOTAL PROTEIN 7.6 g/dL (6.3-8.2)
[2019-12-16 00:01] LABS: ALBUMIN 4.1 g/dL (3.2-5.0)
--- NOTE | 2019-12-16 00:06 | NUR ---
THE PATIENT IS BEGINNING TO FALL ASLEEP. NSR ON THE MONITOR.
[2019-12-16 00:12] LABS: MYOGLOBIN 44 ng/mL (0 - 62)
--- NOTE | 2019-12-16 00:55 | NUR ---
PATIENT IS SLEEPING. VSS.
--- NOTE | 2019-12-16 01:59 | NUR ---
REPORT CALLED TO FLOOR
[2019-12-16 02:05] VITALS: BP 135/68
--- NOTE | 2019-12-16 02:10 | NUR ---
PT RECEIVED FROM ED TO ROOM 279. ARRIVES VIA STRETCHER ACCOMPANIED BY RN. PT TRANSFERED TO BED. ASSESSMENT AND VITALS COMPLETE. PT DENIES ANY KIND OF CHEST PAIN AT THIS TIME. PT IS SOMEWHAT CONFUSED BUT ORIENTED TO UNIT, ROOM, CALL RDZ, LIGHTS, TV. CALL RDZ WITHIN REACH.
--- NOTE | 2019-12-16 04:04 | NUR ---
PT RESTING IN BED, NO S/S OF DISTRESS AT THIS TIME. SAFETY PRECAUTIONS IN PLACE. WILL CONTINUE TO MONITOR.
[2019-12-16 04:35] VITALS: BP 131/50
[2019-12-16 07:09] LABS: URINE BILIRUBIN - DIPSTICK NEGATIVE (NEGATIVE); URINE BLOOD DIPSTICK NEGATIVE (NEGATIVE); URINE COLOR YELLOW; URINE GLUCOSE - DIPSTICK NEGATIVE (NEGATIVE); URINE KETONE NEGATIVE (NEGATIVE); URINE LEUK ESTERASE TRACE (NEGATIVE); URINE NITRITE - DIPSTICK NEGATIVE (Negative); URINE PH 7.5 (4.5-8.0); URINE PROTEIN - DIPSTICK NEGATIVE (NEG-TRACE); URINE UROBILINOGEN - DIPSTICK 0.2 E.U./dL (0.2)
[2019-12-16 08:00] VITALS: BP 141/63
--- NOTE | 2019-12-16 09:00 | NUR ---
PT SEEN AWAKE, ALERT, UNABLE TO STATE MONTH OR HER AGE CORRECTLY. PT DOES CRY OUT FOR HELP, BUT HAS NO ANSWER TO HOW SHE CAN BE HELPED. LUNGS CLEAR, SATS IN LOW 90s, SO NC PLACED AT 2 LPM. DAUGHTER BHUPINDER WAS UPDATED ON HER STATUS SINCE SHE ONLY WAS TOLD THAT PT WAS IN THE HOSPITAL.
[2019-12-16 11:06] VITALS: BP 127/80
--- NOTE | 2019-12-16 13:00 | NUR ---
PT SEEN OOB IN CHAIR WITH ASSIST FROM SUPERVISOR FABRICATION AND ASSEMBLY. PT SEEN BY DR THOMAS AND MOISÉS GARRISON TODAY, WILL BE DISCHARGED BACK TO [facility] TODAY.
--- NOTE | 2019-12-16 14:20 | NUR ---
[facility] PERSONNEL TO ARRIVE SOON TO TAKE PT BACK TO THEIR FACILITY. DAUGHTER BHUPINDER WAS UPDATED ON PT STATUS AND DISCHARGE.
--- NOTE | 2019-12-16 14:34 | NUR ---
PT LEAVES [facility] AT THIS TIME VIA WHEELCHAIR IN STABLE CONDITION.
--- NOTE | 2019-12-16 14:48 | NUR ---
REPORT PROVIDED TO [facility] NURSE VIA PHONE AFTER HER DEPARTURE.
== END 2019-12-16 14:33 ==
LOC: ED 23:03 → ED-I 12-16 01:30 → ED 12-16 01:53 → MS2 12-16 01:54
PROVIDERS: Emergency Medicine; ADMIT Internal Medicine; ATTEND Internal Medicine
DX: R07.9 Chest pain, unspecified (principal); I10 Essential (primary) hypertension; F03.90 Unspecified dementia, unspecified severity, without behavioral disturbance, psychotic disturbance, mood disturbance, and anxiety; M06.9 Rheumatoid arthritis, unspecified; E78.5 Hyperlipidemia, unspecified; I89.0 Lymphedema, not elsewhere classified; G89.4 Chronic pain syndrome; Z86.73 Personal history of transient ischemic attack (TIA), and cerebral infarction without residual deficits; Z87.891 Personal history of nicotine dependence; Z20.828 Contact with and (suspected) exposure to other viral communicable diseases
CPT/HCPCS: G0378

== ENCOUNTER 2020-01-16 12:41 | Inpatient (IN) | payer MEDICARE, BC ==
[~2020-01-16] VITALS: Ht 157.5 cm; Wt 82.7 kg
[~2020-01-16 12:41] MED LIST changes: +MONTELUKAST SOD10 MG PO; +RASUVO25 MG/0.5 SC
--- NOTE | 2020-01-16 12:41 | NUR ---
PT ARRIVED BY EMS ON O2 AND NOT IN ANY DISTRESS
[2020-01-16 13:25] LABS: HEMATOCRIT 41.4 % (37.0-47.0); IMMATURE GRANULOCYTES 0.5 % (0.0-5.0); MEAN CELL VOLUME 94.7 fL CALC (80.0-100.0); MEAN CORPUSCULAR HGB 27.5 pG CALC (26.0-32.0); NEUT# 10.1 thou/uL (2.00-7.15); RED BLOOD COUNT 4.37 mill/uL (4.20-5.60); RED CELL DISTRI WIDTH 19.9 % (11.5-15.5)
[2020-01-16] MEDS ORDERED: ZITHROMAX Z-PA250 MG PO (14:12)
[2020-01-16] MEDS ORDERED: DOXYCYCL HYC100 MG PO (14:14)
[2020-01-16] MEDS ORDERED: ISOSORB MONO30 MG PO (14:17)
--- NOTE | 2020-01-16 14:26 | NUR ---
PATIENT POSITIONED AND COMFORTABLE.ERICARE DONE.
[2020-01-16 14:28] LABS: ALKALINE PHOSPHATASE 99 u/l (38-126); BILIRUBIN, TOTAL 0.7 mg/dL (0.0-1.4); BUN 21 mg/dL (8-23); BUN/CREATININE RATIO 37 (12-20 (CALC)); CARBON DIOXIDE 37 mmol/l (22-30); CHLORIDE 94 mmol/l (95-108); CREATININE 0.6 mg/dL (0.5-1.0); GFR > 60 ML/MIN (>=60 (CALC)); GFR FOR AFR.AMER. > 60 ML/MIN (>=60 (CALC)); SGOT/AST 39 u/l (9-36); TOTAL PROTEIN 7.9 g/dL (6.3-8.2)
[2020-01-16 14:34] LABS: URINE BILIRUBIN - DIPSTICK NEGATIVE (NEGATIVE); URINE BLOOD DIPSTICK TRACE-INTACT (NEGATIVE); URINE COLOR YELLOW; URINE GLUCOSE - DIPSTICK NEGATIVE (NEGATIVE); URINE KETONE NEGATIVE (NEGATIVE); URINE LEUK ESTERASE NEGATIVE (NEGATIVE); URINE NITRITE - DIPSTICK NEGATIVE (Negative); URINE PROTEIN - DIPSTICK TRACE mg/dL (NEG-TRACE); URINE SPECIFIC GRAVITY 1.015; URINE UROBILINOGEN - DIPSTICK 0.2 E.U./dL (0.2)
[2020-01-16 14:36] LABS: ANION GAP 10 (6-22 (CALC)); POTASSIUM 3.4 mmol/l (3.5-5.1); SODIUM 138 mmol/l (137-146)
[2020-01-16 14:38] LABS: MYOGLOBIN 33 ng/mL (0 - 62)
--- NOTE | 2020-01-16 15:32 | NUR ---
PATIENT RESTING QUIETLY,NO C/O. PROVIDER IN TO EVALUATE IV SITE,
--- NOTE | 2020-01-16 16:45 | NUR ---
patient incontinent of large amount of urine. pericare given,bed changed.
--- NOTE | 2020-01-16 16:57 | NUR ---
IV ABT INFUSIING. PT IVP LASIX 40MG. REPOSITIONED BY STAFF. CONTINUES ON O2 4L/M VIA NC. RESP EVEN UNLAOBRED. SAT 98%. SKIN WARM AND DRY. IV SITE HEALTHY.
--- NOTE | 2020-01-16 17:43 | NUR ---
REPORT TO NRIANNA OYSTER SHIPPER IN SBAR FORMAT.
--- NOTE | 2020-01-16 17:45 | NUR ---
PT TO [facility] VIA STRETCHER. TELE, O2, IV ABT, PUREWICK ATTACHMENTS. VSS. NO APPARENT DISTRESS.
--- NOTE | 2020-01-16 17:48 | NUR ---
PT ARRIVED TO [facility] ROOM 272 VIA STRETCHER ACCOMPAINED BY ROSA YANG. PT TRANSFERED FROM STRETCHER TO BE WITH LITTLE DIFFICULTY.PT OPEN EYES TO SPEECH BUT NO ANSWER. ASSESSMENT AND VITALS OBTAINED. BP 164/76, HR 89, O2 95% ON 4 L NC. RESPIRATIONS ARE SHALLOW. HEART RHYTHM IS NORMAL WITH TELE IN PLACE, RUNNING SR 79 WITH PVC'S.BOWEL SOUNDS ARE ACTIVE IN ALL QUADRANTS, LAST REPORTED BM IS UNKNOWN. RADIAL AND PEDAL PULSES ARE STONG WITH NORMAL CAPILLARY REFILL.#24G IN RIGHT INDEX RINGER FLUSHED, SITE APPEARS HEALTHY AND PATENT. BUTTOCKS IS MODERATLY REDDENED. Q2 TURNING ENFORCED. PUREWHICK IN PLACE WITH SUCTION. NO RESPONSE FROM PT WHEN ASKED IF HAVING ANY PAIN. PT UNABLE TO COMPLETE ADMISSION QUESTION. ALL SAEFTY PRECAUTIONS ARE IN PLACE WITH CALL LIGHT IN REACH AND BED ALARM ACTIVATED. WILL CONTINUE TO MONITOR.
[2020-01-16 18:00] VITALS: BP 164/76
[2020-01-16 19:35] VITALS: BP 147/115
--- NOTE | 2020-01-16 20:00 | NUR ---
PATIENT RESTNG IN BED TURNED TO LEFT SIDE. WHEN CALLED OUT TO PATIENT, SHE WOULD OPEN EYES BUT NOT ANSWER. ASSESSMENT COMPLETE VITAL OBTAINED. PATIENT ON 4 L V IA NC. ON TELEMETRY. HEART RATE NORMAL. BS ACTIVE. CAP REFILL <3 SECS. RESPIRATIONS SHALLOW. VAD #24 R INDEX FINGER PATENT WITH DRESSING CDI. BUTTOCKS IN RED PATENT TURNED SIDE TO SIDE TO PREVENT BREAKDOWN. SAFETY PRECAUTIONS IN PLACE. FALL PRECAUTIONS IN PLACE. BED IN LOW POSITON. CALL LIGHT WITHIN REACH. BED ALARM ACTIVATED.
[2020-01-17] VITALS (8 sets, daily range): BP systolic 102–140; BP diastolic 34–69
--- NOTE | 2020-01-17 | NUR ---
PATIENT RESTING IN BED. TAMIFLU GIVEN IN APPLE SAUCE. PATIENT LATHARGIC. DIFFICULT TO GET PATIENT TO SWALLOW. NO ACUTE DISTRESS NOTED. BED IN LOW POSITION. [facility].
[2020-01-17 04:14] LABS: HEMATOCRIT 46.4 % (37.0-47.0); HEMOGLOBIN 12.9 g/dl (12.0-16.0); IMMATURE GRANULOCYTES 0.9 % (0.0-5.0); MEAN CELL VOLUME 97.9 fL CALC (80.0-100.0); MEAN CORPUSCULAR HGB 27.2 pG CALC (26.0-32.0); MEAN CORPUSCULAR HGB CONC 27.8 g/dL CAL (32.0-36.0); NEUT# 11.85 thou/uL (2.00-7.15); RED BLOOD COUNT 4.74 mill/uL (4.20-5.60); RED CELL DISTRI WIDTH 19.3 % (11.5-15.5)
[2020-01-17 04:44] LABS: ALKALINE PHOSPHATASE 105 u/l (38-126); ANION GAP 15 (6-22 (CALC)); BILIRUBIN, TOTAL 0.8 mg/dL (0.0-1.4); BUN 29 mg/dL (8-23); BUN/CREATININE RATIO 43 (12-20 (CALC)); CALCULATED LDLCHOLESTEROL 67 mg/dL (62-129 (CALC)); CARBON DIOXIDE 37 mmol/l (22-30); CHLORIDE 95 mmol/l (95-108); CHOLESTEROL HDL RATIO 2.2 (<4.4 (CALC)); CREATININE 0.7 mg/dL (0.5-1.0); GFR > 60 ML/MIN (>=60 (CALC)); GFR FOR AFR.AMER. > 60 ML/MIN (>=60 (CALC)); HDL CHOLESTEROL 72 mg/dL (>=40); MAGNESIUM 1.6 mg/dL (1.6-2.3); SGOT/AST 37 u/l (9-36); SODIUM 142 mmol/l (137-146); TOTAL PROTEIN 7.5 g/dL (6.3-8.2); TOTAL TRIGLYCERIDES 88 mg/dl (30-149); VLDL CHOLESTROL 18 mg/dl (0-48 (CALC))
[2020-01-17 04:45] LABS: TOTAL CHOLESTEROL 157 mg/dl (0-199)
--- NOTE | 2020-01-17 07:00 | NUR ---
REPORT RECEIVED FROM ROSA MCCLOUD. PT RESTING IN BED AT THIS TIME, RESPIRATIONS ARE LABORED ON O2 @ 2L VIA NC. SAFETY PRECAUTIONS IN PLACE. WILL CONTINUE TO MONITOR.
--- NOTE | 2020-01-17 09:20 | NUR ---
PT BEING TRANSFER TO ICU BED 5 TO BE PLACED ON BPAP, PER MD ORDERS. UNABLE TO WAKE PT, PT UNRESPONSIVE AT THIS TIME. RESPIRATIONS ARE LABORED ON O2 @ 2L VIA NC. PT TRANSPORTED VIA BED TO ICU BED 5, RESPIRATORY WAITING IN ICU FOR PT ARRIVAL.
--- NOTE | 2020-01-17 09:35 | NUR ---
PT BROUGHT TO ROOM 5 FROM [facility], AFTER NURSE STATES PT BECAME MORE LETHARGIC THIS AM, AND WAS PLACED ON BIPAP, PT SLEEPING ON BED, VITAL SIGNS STABLE. WAS TOLD BY TRANSFERRING NURSE THAT PT HAD NOT RECEIVED ANY OF HER MORNING MEDS BECAUSE SHE WAS TOO LETHARGIC AND WOULDNT SWALLOW MEDS. PT WILL OPEN EYES TO TACTILE STIMULI ONLY.
--- NOTE | 2020-01-17 10:56 | NUR ---
PT RESTING QUIETLY ON STRETCHER, STILL REMAINS LETHARGIC, VITAL SIGNS STABLE AT THIS TIME
--- NOTE | 2020-01-17 11:53 | NUR ---
PT NOT OPENING EYES TO ANY STIMULI, VITAL SIGNS REMAIN STABLE. DOES NOT APPEAR TO HEAR OR SEE THIS STAFF MEMBER. BIBPAP REMAINS ON, IV FLUIDS INFUSING.
--- NOTE | 2020-01-17 13:00 | NUR ---
WENT INTO PT ROOM, AND LIGHTLY SHOOK PTS SHOULDER AND ASKED PT TO OPEN UP EYES, PT DID OPEN UP RICARDO EYES AND LOOK AROUND THEN CLOSED THEM. ONLY COMMAND I COULD GET PT TO DO, DID NOT RESPOND TO ASKING HER TO OPEN AND CLOSE EITHER FIST. VITAL SIGNS STABLE
--- NOTE | 2020-01-17 14:10 | NUR ---
SPOKE WITH PTS DAUGHTER IN LENGTH ABOUT DNR. PT IS TO NOT HAVE CPR AND VENT ONLY. PT IS TO HAVE FLUIDS, COMFORT MEASURES, ANTIBIOTICS, ECT. PTS WAS TAKEN TO ER THIS AM FOR COMPLAINTS OF COUGH/CONGESTION BUT WAS DISCHARGED BACK TO [facility] WITHOUT ADMISSION.
--- NOTE | 2020-01-17 14:25 | NUR ---
DR THOMAS NOTIFIED OF ABG RESULTS. NEW ORDERS RECEIVED.
--- NOTE | 2020-01-17 14:54 | NUR ---
NO RESPONSIVE TO VERBAL OR PAINFUL STIMULI AT THIS TIME. VITAL SIGNS STABLE, PER DR. THOMAS ORDER BIPAP INCREASED AFTER ABG OBTAINED.
--- NOTE | 2020-01-17 16:00 | NUR ---
NOTICED PT MOVING LEFT ARM UP AND DOWN, PT WILL SQUEEZE HAND ON VERBAL COMMAND
--- NOTE | 2020-01-17 17:18 | NUR ---
PT MOVING AROUND MORE, OPENS EYES ON OWN.
--- NOTE | 2020-01-17 19:00 | NUR ---
BEDRESTING ON BIPAP. AWAITING BIOFIRE RESULTS FROM LAB
--- NOTE | 2020-01-17 21:00 | NUR ---
RT AT BEDSIDE. PT REMAINS ON BIPAP. NOT AWAKE ENOUGH TO GIVE PO MEDICATION SO TAMIFLU NOT GIVEN
--- NOTE | 2020-01-17 23:00 | NUR ---
WAS INCONTINENT OF URINE. CLEANED UP. PARTIAL BEDBATH GIVEN. PUREWIK APPLIED TO KEEP PATIENT DRY. BACK OF BUTTOCKS APPEARS DISCOLORED. TURNED AND REPOSITIONED. TOLERATED ACTIVITY WELL. HOWEVER, PT DID NOT ASSIST, PUSH AGAINST STAFF OR RESIST IN ANY WAY. SHE DID NOT OPEN HER EYES.
[2020-01-18] VITALS (17 sets, daily range): BP systolic 83–150; BP diastolic 36–87
--- NOTE | 2020-01-18 01:28 | NUR ---
BEDRESTING. TOLERATING BIPAP WELL. NO DISTRESS NOTED. NO COUGH.
--- NOTE | 2020-01-18 03:00 | NUR ---
REMAINS ON AIRBORNE PRECAUTIONS FOR COVID. NO COUGH NOTED. AFEBRILE. INCONTINENT OF URINE BUT PUREWIK WORKING WELL
--- NOTE | 2020-01-18 04:27 | NUR ---
BEDRESTING. REMAINS ON BIPAP. RESP EVEN AND NONLABORED. WITHDRAWS TO PAINFUL STIMULI
--- NOTE | 2020-01-18 06:01 | NUR ---
BEDRESTING. NOTED SLIGHTLY PITTING EDEMA OF LOWER EXTREMITIES AND FACE. NO EDEMA OF ARMS NOTED. SMALL AMOUNT OF URINE IN SUCTION CONTAINER (FROM PURE WIK). BED NOT DAMP.
--- NOTE | 2020-01-18 07:45 | NUR ---
pt resting in bed with eyes closed; no apparent distress noted; assessment completed at this time; pt arousable to verbal stimuli; pt only moans/ does not converse with blurb writer; no n/v noted; pupils reactive; resp even and unlabored; lungs diminished; skin color wnl; bipap intact with settings of 16/8, FiO2 40%; no cough noted; hr reg; strong pulses; edema noted to ble; sr on monitor; abd soft with bs present; no bm noted per blurb writer; purewick intact with no urine output noted; no urinary incont noted; #24 to right 1st digit flushed and patent; no redness or edema noted at site; positioned to right side; plan of care explained; call light within reach; will continue to monitor
--- NOTE | 2020-01-18 08:10 | NUR ---
sheet metal technician present at bedside
--- NOTE | 2020-01-18 08:16 | NUR ---
awake moaning; pt does not answer when questioned if in pain; repositioned to left side; iv intact; sr on monitor; purewick catheter intact; no urinary incont noted; bipap intact and maintained; call light within reach; will continue to monitor
--- NOTE | 2020-01-18 08:29 | NUR ---
Dr Tobar present at bedside to assess pt and discuss plan of care
--- NOTE | 2020-01-18 09:40 | NUR ---
yury Conteh called this database report writer; passcode verified; update provided; will continue to monitor
--- NOTE | 2020-01-18 10:05 | NUR ---
pt awake, more alert; no apparent distress noted; bipap removed and pt placed on 5L nc; o2 sat 93%; pt able to tolerate po water without difficulty; no s/s of aspiration noted; sr/pvc on monitor; purewick intact with no urinary incont noted; repositioned with hob elevated; oral care with toothette and lip balm; call light within reach; will continue to monitor
--- NOTE | 2020-01-18 10:15 | NUR ---
am meds explained and administered whole in applesauce; pt tolerated well; hob remains elevated; o2 per nc at 5L; call light within reach; will continue to monitor
--- NOTE | 2020-01-18 12:03 | NUR ---
awake in bed moaning out loudly; pt offers no complaints; denies pain when questioned; repositioned for comfort; senior writer at bedside to feed pt; purewick intact; iv intact; call light within reach; will continue to monitor
--- NOTE | 2020-01-18 12:57 | NUR ---
Dr Tobar notified of no urine output; orders received and on chart
--- NOTE | 2020-01-18 13:45 | NUR ---
16F castorena catheter inserted using sterile technique; return of cloudy/ concentrated urine in small amount; cath strap placed; repositioned; will continue to monitor
--- NOTE | 2020-01-18 15:33 | NUR ---
awake in bed confused; pt has pulled out iv to right index finger; pt has removed o2 probe; repositioned; call light within reach; will continue to monitor
--- NOTE | 2020-01-18 16:11 | NUR ---
pt resting in bed with eyes closed; no apparent distress noted; iv intact and patent; no redness or edema noted at site; sr/pvc on monitor; castorena to gravity; oral care with toothette; po fluids provided; call light within reach; will continue to monitor
--- NOTE | 2020-01-18 18:05 | NUR ---
awake in bed; confused; pt has removed #22 to rh; partial bath and complete linen change done; pt has removed cath strap; cath secured with coban; sr/st with pvc on monitor; o2 per nc; repositioned; pt refusing dinner; call light within reach
--- NOTE | 2020-01-18 20:15 | NUR ---
awakens easily. nad. speaks in whispery voice. o2 cont per nc. cardiac cath technician shows sinus rhythm pvcs hr 78. #22 lt wrist ns infusing @ 100cchr. po fluids taken fair. no choking. castorena cath in place. urine cloudy yellow. turned & repositioned. requires total care for all needs. fall & air/contact precautions cont.
--- NOTE | 2020-01-18 22:00 | NUR ---
eyes closed. no distress. bipap cont. satellite project site monitor shows sinus rhythm pvcs hr 80.
[2020-01-19] VITALS (43 sets, daily range): BP systolic 61–116; BP diastolic 35–70
--- NOTE | 2020-01-19 00:01 | NUR ---
eyes closed. no distress. ivf infusing well.
--- NOTE | 2020-01-19 02:00 | NUR ---
resting quietly. bipap cont. nad.
--- NOTE | 2020-01-19 04:00 | NUR ---
eyes closed. no disress. roving changer shows sinus rhythm hr 66.
--- NOTE | 2020-01-19 04:58 | NUR ---
blending machine feeder shows a fib pvcs hr 130.
--- NOTE | 2020-01-19 06:10 | NUR ---
cardic monitor shows a fib pvcs hr 130-150. 0900 toprol xl & imdur given.
--- NOTE | 2020-01-19 07:20 | NUR ---
pt awake in bed; no apparent distress noted; assessment completed at this time; pt alert to person; confusion noted; easily reoriented; denies pain; no n/v noted; resp even and unlabored; lungs clear upper anterior/ diminished; skin color wnl; bipap intact with settings of 16/8 40% FiO2; pt converted to nc at 5L at this time; java websphere developer cough noted; hr irreg/murmur present; weak pedal pulses; 1+ edema noted to ble; afib 140s on monitor; abd soft/ distended with bs present; no bm noted per insurance underwriter sales; castorena to gravity; cath strap intact; #22 to lw patent with ivf infusing without complication; no redness or edema noted at site; redness with 2 pinpoint open areas noted to coccyx; repositioned to left side; oral care with toothette; call light within reach; will continue to monitor
--- NOTE | 2020-01-19 08:06 | NUR ---
Dr López called per keno writer/runner in regards to afib RVR (starting at approx 0500); informed Imdur and Toprol was administered at 0610 with no effect; informed current bp 79/59 with hr 130s; to be on unit within next couple of minutes;
--- NOTE | 2020-01-19 08:20 | NUR ---
resting in bed with eyes closed; no apparent distress noted; afib 130-140 on monitor; iv intact and patent; castorena to gravity; call light within reach; will continue to monitor
--- NOTE | 2020-01-19 09:00 | NUR ---
Dr López present at bedside to assess pt and discuss plan of care
[2020-01-19 09:20] LABS: HEMOGLOBIN 11.9 g/dl (12.0-16.0); IMMATURE GRANULOCYTES 0.6 % (0.0-5.0); MEAN CELL VOLUME 98.2 fL CALC (80.0-100.0); MEAN CORPUSCULAR HGB 27.2 pG CALC (26.0-32.0); MEAN CORPUSCULAR HGB CONC 27.7 g/dL CAL (32.0-36.0); NEUT# 13.56 thou/uL (2.00-7.15); RED BLOOD COUNT 4.38 mill/uL (4.20-5.60); RED CELL DISTRI WIDTH 19.1 % (11.5-15.5)
--- NOTE | 2020-01-19 10:10 | NUR ---
resting in bed; repositioned; no apparent distress noted; castorena to gravity; iv intact; afib on monitor; continues with hypotension; o2 per nc at 3L; will continue to monitor
[2020-01-19 10:22] LABS: CREATININE 1.5 mg/dL (0.5-1.0); POTASSIUM 3.6 mmol/l (3.5-5.1)
[2020-01-19 10:55] LABS: C-REACTIVE PROTEIN 20.1 mg/dL (0-0.9)
--- NOTE | 2020-01-19 11:20 | NUR ---
Dr López called per credit underwriter in regards to persistent hypotension and elevated hr; labs reviewed; orders received and on chart
--- NOTE | 2020-01-19 11:52 | NUR ---
awake in bed; hypotensive; lunch held at this time; pt placed in trendelenburg position; saline bolus initiated at at this time; castorena to gravity; afib on monitor; repositioned; will continue to monitor
--- NOTE | 2020-01-19 13:20 | NUR ---
automobile and property underwriter called yury Khalil as per request; update provided; verbal consent obtained for central line placement if needed;
--- NOTE | 2020-01-19 14:00 | NUR ---
awake in bed; no apparent distress noted; remains in trendelenburg position; o2 per nc; castorena to gravity; afib on monitor; castorena to gravity; will continue to monitor
--- NOTE | 2020-01-19 16:05 | NUR ---
awake in bed; no apparent distress noted; afib on monitor; castorena to gravity; iv intact and patent; o2 per nc; repositioned; will continue to monitor
--- NOTE | 2020-01-19 16:37 | NUR ---
moist loose cough noted/ nonproductive; hob elevated; afib on monitor; o2 per nc; castorena to gravity; iv intact and patent; no redness or edema noted at site; will continue to monitor
--- NOTE | 2020-01-19 18:07 | NUR ---
awake in bed; no apparent distress noted; afib on monitor; rate low 100s; iv intact and patent; no redness or edema noted at site; castorena to gravity; o2 per nc; science writer attempting to feed pt; pt refusing; po fluids provided; hob remains elevated; call placed to daughter Aleksandar Khalil; update provided; daughter placed on speaker phone and able to briefly speak with pt prior to pt falling asleep; call light within reach
--- NOTE | 2020-01-19 20:00 | NUR ---
drowsy. speaks in whispery voice. o2 cont @ 3 l/m per nc. nad. environmental monitoring specialist shows a fib pvcs hr 100. #22 lt wrist. ns infusing @ 100cchr. sips fluids given per syringe. castorena cath in place. urine cloudy yellow. coccyx remains red/blister. turned & repositioned. requires total assist for all care. fall & resp isolation & bed alarm cont.
--- NOTE | 2020-01-19 22:00 | NUR ---
eyes closed. no distress. micrographics services supervisor shows a fib pvcs hr 102.
[2020-01-20] VITALS (21 sets, daily range): BP systolic 87–151; BP diastolic 36–77
--- NOTE | 2020-01-20 00:01 | NUR ---
eyes closed. nad. o2 cont. ivf infusing well.
--- NOTE | 2020-01-20 02:00 | NUR ---
resting quietly. resps even & unlabored. nad. salad counter attendant shows a fib pvcs hr 100.
--- NOTE | 2020-01-20 04:00 | NUR ---
eyes closed. nad. uop low. turned & repositioned.
--- NOTE | 2020-01-20 05:07 | NUR ---
lab here. blood drawn.
[2020-01-20 05:46] LABS: HEMATOCRIT 45.5 % (37.0-47.0); HEMOGLOBIN 12.5 g/dl (12.0-16.0); IMMATURE GRANULOCYTES 0.7 % (0.0-5.0); MEAN CELL VOLUME 98.7 fL CALC (80.0-100.0); MEAN CORPUSCULAR HGB 27.1 pG CALC (26.0-32.0); MEAN CORPUSCULAR HGB CONC 27.5 g/dL CAL (32.0-36.0); NEUT# 10.09 thou/uL (2.00-7.15); RED BLOOD COUNT 4.61 mill/uL (4.20-5.60); RED CELL DISTRI WIDTH 19.2 % (11.5-15.5)
[2020-01-20 06:14] LABS: ALKALINE PHOSPHATASE 73 u/l (38-126); ANION GAP 9 (6-22 (CALC)); BILIRUBIN, TOTAL 0.5 mg/dL (0.0-1.4); BUN 69 mg/dL (8-23); BUN/CREATININE RATIO 71 (12-20 (CALC)); CARBON DIOXIDE 34 mmol/l (22-30); CHLORIDE 108 mmol/l (95-108); GFR 53 ML/MIN (>=60 (CALC)); GFR FOR AFR.AMER. > 60 ML/MIN (>=60 (CALC)); POTASSIUM 4.1 mmol/l (3.5-5.1); SODIUM 148 mmol/l (137-146)
[2020-01-20 06:25] LABS: ALBUMIN 2.9 g/dL (3.2-5.0); SGOT/AST 173 u/l (9-36); TOTAL PROTEIN 5.9 g/dL (6.3-8.2)
--- NOTE | 2020-01-20 07:15 | NUR ---
pt resting in bed with eyes closed; arousable when name is called but quickly drift mars k to sleep; drowsiness noted; assessment completed at this time; no s/sx of pain/ facial grimaces noted; no n/v noted; resp even and unlabored; lungs coarse upper anterior with diminished bases; skin color wnl; o2 per nc at 3L; rn medical inpatient services cough noted; suction at bedside; hr irreg/murmur noted; afib/ pvc on monitor; wk pedal pulses; 2+ edema noted to ble; legs floated on pillows; abd soft with bs present; no bm noted per video game script writer; castorena to gravity with cath strap intact; #22 to lh patent with ivf infusing without complication; no redness or edema noted at site; redness noted to coccyx; repositioned; oral care; call light within reach; will continue to monitor
--- NOTE | 2020-01-20 08:20 | NUR ---
resting in bed with eyes closed; breakfast held d/t drowsiness; castorena to gravity; iv intact and patent; afib/pvc on monitor; will continue to monitor
--- NOTE | 2020-01-20 08:45 | NUR ---
Dr López present at bedside to assess pt and discuss plan of care; pt will open eyes on command but appears lethargic; verbal order to hold [place] at this time;
--- NOTE | 2020-01-20 09:39 | NUR ---
resting in bed with eyes closed; easily aroused; pt able to take medications with applesauce; no s/sx of aspiration/ coughing noted; hob remains elevated; pt moans loudly but deny pain when asked; appears slightly more alert at this time; repositioned; will continue to monitor
--- NOTE | 2020-01-20 10:06 | NUR ---
resting in bed with eyes closed; no apparent distress noted; hob elevated; iv intact and patent; no redness or edema noted at site; afib/pvc on monitor; castorena to gravity; o2 per nc; call light within reach; will continue to monitor
--- NOTE | 2020-01-20 10:25 | NUR ---
xray at bedside
--- NOTE | 2020-01-20 11:10 | NUR ---
Aleksandar Khalil called per this feature writer; update provided; daughter informed hr and bp has improved but pt more drowsy today; daughter appreciative of care/ update; will continue to monitor
--- NOTE | 2020-01-20 12:00 | NUR ---
resting in bed with eyes closed; no apparent distress noted; resp even and unlabored; iv intact and patent; no redness or edema noted at site; afib/pvc on monitor; castorena to gravity; repositioned; meal held d/t lethargic; pt remains easy to arouse; call light within reach; will continue to monitor
--- NOTE | 2020-01-20 13:58 | NUR ---
complete bed bath; oral care; linens changed; catheter care; pt less responsive at this time/ moans to tactile stimulation; RT notified; bipap to be applied at prev settings
--- NOTE | 2020-01-20 14:06 | NUR ---
RT at bedside; bipap applied at 18/8, 40% FiO2
--- NOTE | 2020-01-20 16:00 | NUR ---
pt resting in bed with eyes closed; no apparent distress noted; arousable to verbal stimuli; castorena to gravity; iv intact and patent; no redness or edema noted at site; afib on monitor; bipap intact with 40% FiO2; call light within reach; will continue to monitor
--- NOTE | 2020-01-20 16:06 | NUR ---
received call from Aleksandar [employer]; updated provided; will continue to monitor
--- NOTE | 2020-01-20 17:06 | NUR ---
repositined to right side; will continue to monitor
--- NOTE | 2020-01-20 18:09 | NUR ---
resting in bed with eyes closed; no apparent distress noted; resp even and unlabored; bipap intact and maintained; afib on monitor; castorena to gravity; iv intact and patent; repositioned; oral care with toothette administered; call light within reach
--- NOTE | 2020-01-20 19:30 | NUR ---
drowsy. does not fully arouse. bipap cont. nad. hob remains elevated. compliance monitor shows a fib pvcs hr 100. #22 lt wrist ns infusing @ 100cchr. castorena cath in place. urine more cloudy tonight. turned & repositioned. requires total care for all needs. fall & air/contact precautions & bed alarm conts.
--- NOTE | 2020-01-20 22:00 | NUR ---
eyes closed. bipap cont. nad.
[2020-01-21] VITALS (20 sets, daily range): BP systolic 96–148; BP diastolic 42–66
--- NOTE | 2020-01-21 00:01 | NUR ---
eyes closed. no distress. quality assurance monitor shows a fib pvcs hr 88.
--- NOTE | 2020-01-21 02:00 | NUR ---
resting quietly. nad. bipap cont. ivf infusing well.
--- NOTE | 2020-01-21 04:00 | NUR ---
eyes closed. alarm security or surveillance monitor shows a fib pvcs hr 88. ivf infusing well.
--- NOTE | 2020-01-21 05:20 | NUR ---
lab here. blood drawn.
[2020-01-21 05:42] LABS: HEMATOCRIT 43.8 % (37.0-47.0); HEMOGLOBIN 11.7 g/dl (12.0-16.0); IMMATURE GRANULOCYTES 0.5 % (0.0-5.0); MEAN CELL VOLUME 101.9 fL CALC (80.0-100.0); MEAN CORPUSCULAR HGB 27.2 pG CALC (26.0-32.0); MEAN CORPUSCULAR HGB CONC 26.7 g/dL CAL (32.0-36.0); NEUT# 9.08 thou/uL (2.00-7.15); RED BLOOD COUNT 4.3 mill/uL (4.20-5.60); RED CELL DISTRI WIDTH 18.8 % (11.5-15.5)
[2020-01-21 05:58] LABS: ALBUMIN 2.4 g/dL (3.2-5.0); ALKALINE PHOSPHATASE 65 u/l (38-126); ANION GAP 6 (6-22 (CALC)); BILIRUBIN, TOTAL 0.4 mg/dL (0.0-1.4); BUN 66 mg/dL (8-23); BUN/CREATININE RATIO 72 (12-20 (CALC)); CARBON DIOXIDE 35 mmol/l (22-30); CHLORIDE 116 mmol/l (95-108); CREATININE 0.9 mg/dL (0.5-1.0); GFR 60 ML/MIN (>=60 (CALC)); GFR FOR AFR.AMER. > 60 ML/MIN (>=60 (CALC)); POTASSIUM 3.9 mmol/l (3.5-5.1); SGOT/AST 99 u/l (9-36); SODIUM 152 mmol/l (137-146); TOTAL PROTEIN 5.1 g/dL (6.3-8.2)
--- NOTE | 2020-01-21 06:45 | NUR ---
REPORT RECEIVED FROM BHUPINDER CALDWELL. CARE ASSUMED.
--- NOTE | 2020-01-21 07:00 | NUR ---
PT RESTING IN BED WITH EYES CLOSED. AROUSES TO VERBAL STIMULI. PT ON BIPAP. PT DOES NOD HEAD WHEN YOU SAY HER NAME. RESP ARE EVEN AND UNLABORED. 100% SATS ON BIPAP. ATTEMPTED TO TAKE PT OFF OF BIPAP AND PLACE ON NASAL CANNULA. O2 SATS DROPPED TO 74%. PLACED PT BACK ON BIPAP. SHIFT ASSESSMENT COMPLETED AT THIS TIME. IV PATENT X1. CALL LIGHT IN REACH. WILL CONTINUE TO MONITOR.
--- NOTE | 2020-01-21 08:00 | NUR ---
DR VASQUEZ AT BEDSIDE AT THIS TIME.
--- NOTE | 2020-01-21 09:15 | NUR ---
PT OFF OF BIPAP AT THIS TIME FOR AM MEDS AND PLACED ON O2 NC. PT TOLERATING WELL
--- NOTE | 2020-01-21 09:35 | NUR ---
PT GIVEN AM MEDS CRUSHED IN APPLESAUCE WITH SIPS OF WATER. PT UNABLE TO SIP FROM STRAW. PT PROVIDED WATER WITH DROPS FROM A SYRINGE. MOIST COUGH NOTED BEFORE AND AFTER MEDICATION ADMINISTRATION. CALL LIGHT IN REACH. WILL CONTINUE TO MONITOR.
--- NOTE | 2020-01-21 10:19 | NUR ---
PT RESTING IN BED WITH EYES CLOSED. RESP ARE EVEN AND UNLABORED ON O2 NC. VSS ON MONITOR. CALL LIGHT IN REACH. WILL CONTINUE TO MONITOR.
--- NOTE | 2020-01-21 12:00 | NUR ---
PT RESTING IN BED WITH EYES CLOSED. RESP ARE EVEN AND UNLABORED. NO DISTRESS NOTED. CALL LIGHT IN REACH. WILL CONTINUE TO MONITOR.
--- NOTE | 2020-01-21 12:40 | NUR ---
NASOPHARYNGEAL SUCTIONING PERFORMED BY RT. THICK SECRETIONS SUCTIONED OUT. PT TOLEATED PROCEDURE WELL.
--- NOTE | 2020-01-21 14:15 | NUR ---
PT GIVEN WATER AND MEDICATED WITH MUCINEX IN APPLE SAUCE. PT TOLERATED WELL
--- NOTE | 2020-01-21 15:53 | NUR ---
PT TRANSFERRED TO AIR MATTRESS. PT GIVEN SIPS OF WATER VIA SYRINGE. PT TOLERATED TRANSFER WELL. VSS ON MONITOR. CALL LIGHT IN REACH. WILL CONTINUE TO MONITOR.
--- NOTE | 2020-01-21 17:38 | NUR ---
ORAL CARE PROVIDED. FACE CLEANED. PT DID OPEN EYES TO NAME CALLED. RT PERFORMED OROPHARYNGEAL SUCTIONING. THICK SECRETIONS NOTED IN SUCTION TUBING. PT TOLERATED WELL. CALL LIGHT IN REACH. WILL CONTINUE TO MONITOR.
--- NOTE | 2020-01-21 19:05 | NUR ---
RECEIVED REPORT. BEDRESTING. ON N/C AT 2L/MIN-TOLERATING WELL
--- NOTE | 2020-01-21 21:00 | NUR ---
BEDRESTING. HOB ELEVATED. ON AIR MATRESS. IV INFUSING RX. FINN TO BSD WITH DARK YELLOW URINE IN BAG. REPORTEDLY HAD MUCH GREATER PO INTAKE THAN OUTPUT TODAY. CONTINUES TO HAVE 2+ PITTING EDEMA BILATERAL LOWER EXTREMITIES. MOANS AND SWALLOWS WITH STIMULATION. MOVES HANDS IN AIR BUT APPEARS TO BE WITHOUT PURPOSE. WHEN GIVEN PO MEDS, PT COUGHS A LITTLE. HOB REMAINS ELEVATED
--- NOTE | 2020-01-21 22:38 | NUR ---
BEDRESTING. RESP EVEN AND NONLABORED. NO DISTRESS OR FURTHER COUGHING NOTED
[2020-01-22] VITALS (12 sets, daily range): BP systolic 123–183; BP diastolic 51–93
--- NOTE | 2020-01-22 | NUR ---
WHEN TURNING AND REPOSITIONING, PT C/O BEING THIRSTY. SMALL SIP OF WATER GIVEN. SHE COUGHED A COUPLE OF TIMES THEN, SEEMED COMFORTABLE
--- NOTE | 2020-01-22 02:00 | NUR ---
BEDRESTING. NO COUGH OR DISTRESS NOTED
--- NOTE | 2020-01-22 03:56 | NUR ---
BEDRESTING EYES CLOSED. ARROUSED WHEN STAFF MOVING AND REPOSITIONING HER
--- NOTE | 2020-01-22 04:50 | NUR ---
BLOOD DRAWN BY LAB-TOLERATED WELL. NO DISTRESS NOTED
[2020-01-22 04:55] LABS: HEMATOCRIT 38.3 % (37.0-47.0); HEMOGLOBIN 10.3 g/dl (12.0-16.0); IMMATURE GRANULOCYTES 0.7 % (0.0-5.0); MEAN CORPUSCULAR HGB 27.7 pG CALC (26.0-32.0); MEAN CORPUSCULAR HGB CONC 26.9 g/dL CAL (32.0-36.0); NEUT# 9.74 thou/uL (2.00-7.15); RED BLOOD COUNT 3.72 mill/uL (4.20-5.60)
--- NOTE | 2020-01-22 05:57 | NUR ---
HEART RATE AND B/P INCREASED AND O2 SAT LOWER. RT CALLED AND PT PLACED BACK ON BIPAP
--- NOTE | 2020-01-22 06:25 | NUR ---
LAB BACK FOR REDRAW OF SPECIMEN
--- NOTE | 2020-01-22 08:00 | NUR ---
PT RESTING IN BED. BIPAP IN PLACE. VITALS STABLE ON MONITOR.
[2020-01-22 09:34] LABS: ALBUMIN 2.6 g/dL (3.2-5.0); ALKALINE PHOSPHATASE 56 u/l (38-126); BUN 63 mg/dL (8-23); BUN/CREATININE RATIO 82 (12-20 (CALC)); CARBON DIOXIDE 31 mmol/l (22-30); CHLORIDE 125 mmol/l (95-108); CREATININE 0.8 mg/dL (0.5-1.0); GFR > 60 ML/MIN (>=60 (CALC)); GFR FOR AFR.AMER. > 60 ML/MIN (>=60 (CALC)); SGOT/AST 76 u/l (9-36); SODIUM 159 mmol/l (137-146); TOTAL PROTEIN 5.7 g/dL (6.3-8.2)
[2020-01-22 09:43] LABS: ANION GAP 8 (6-22 (CALC)); BILIRUBIN, TOTAL 0.7 mg/dL (0.0-1.4); POTASSIUM 4.9 mmol/l (3.5-5.1)
--- NOTE | 2020-01-22 10:00 | NUR ---
CENTRAL LINE PLACED BY DR. BRITTON DUE TO POOR PERIPHERAL ACCESS. VITALS REMAIN STABLE. BED IN LOW POSITION. CONTINUING TO MONITOR.
--- NOTE | 2020-01-22 12:00 | NUR ---
PT SEMI-FOWLERS IN BED, BIPAP REMAINS IN PLACE. VITALS STABLE. IV FLUIDS INFUSING WITHOUT DIFFICULTY.
--- NOTE | 2020-01-22 14:00 | NUR ---
NEW PHOTO TAKEN OF PRESSURE ULCER ON BUTTOCKS. LINEN CHANGED AND PT REPOSITIONED.
--- NOTE | 2020-01-22 16:00 | NUR ---
PT REMAINS ON BIPAP, IV FLUIDS CONTINUE TO INFUSE WITHOUT COMPLICATIONS. VITALS STABLE. BED IN LOW POSITION.
--- NOTE | 2020-01-22 18:00 | NUR ---
PT SEMI-FOWLERS ON RIGHT SIDE. FINN DRAINING YELLOW URINE. STABLE ON MONITOR.
--- NOTE | 2020-01-22 19:00 | NUR ---
RECEIVED REPORT FROM AM NURSE. PATIENT IN BED. BIPAP ON. WILL CONTINUE TO MONITOR.
--- NOTE | 2020-01-22 20:00 | NUR ---
PATIENT ASSESSMENT COMPLETED. PATIENT CONTINUES ON BIPAP. PATIENT TOLERATING WELL. PATIENT ONLY RESPOSIVE TO PAIN. SPONTANEOUSLY MOVES EXTREMITIES. DOES NOT FOLLOW COMMANDS. PATIENT SR. PATIENT WITH FINN IN PLACE. VITALS STABLE. NO SIGNS OF DISTRESS. WILL CONTINUE TO MONITOR.
--- NOTE | 2020-01-22 22:00 | NUR ---
PATIENT TURNED AND REPOSITIONED. PATIENT CONTINUES ON BIPAP. TOLERATING WELL. PATIENT HAD BM. FINN CARE PROVIDED. PATIENT WITH NO SIGNS OF DISTRESS. VITALS STABLE. DAUGHTER CALLED AND UPDATED ON PATIENTS STATUS. WILL CONTINUE TO MONITOR.
[2020-01-23] VITALS (14 sets, daily range): BP systolic 81–146; BP diastolic 45–85
--- NOTE | 2020-01-23 | NUR ---
PATIENT CONTINUES ON BIPAP. PATIENT TURNED AND REPOSITIONED. NO CHANGES. WILL CONTINUE TO MONITOR.
--- NOTE | 2020-01-23 02:00 | NUR ---
PAIENT RESTING. NO FOLLOWING COMMANDS. TOLERATING BIPAP. PATIENT TURNED AND REPOSITIONED. FLUIDS INFUSING. WILL CONTINUE TO MONITOR.
--- NOTE | 2020-01-23 04:00 | NUR ---
PATIENT ROUNDED ON. PATIENT WITH NO SIGNS OF DISTRESS. PATIENT TURNED AND REPOSITIONED. PATIENT INCONTINENT OF STOOL. PATIENT CONTINUES WITH BIPAP. WILL CONTINUE TO MONITOR.
[2020-01-23 07:13] LABS: HEMATOCRIT 42.7 % (37.0-47.0); HEMOGLOBIN 11.5 g/dl (12.0-16.0); IMMATURE GRANULOCYTES 0.5 % (0.0-5.0); MEAN CELL VOLUME 101.4 fL CALC (80.0-100.0); MEAN CORPUSCULAR HGB 27.3 pG CALC (26.0-32.0); MEAN CORPUSCULAR HGB CONC 26.9 g/dL CAL (32.0-36.0); NEUT# 20.47 thou/uL (2.00-7.15); RED BLOOD COUNT 4.21 mill/uL (4.20-5.60); RED CELL DISTRI WIDTH 19.2 % (11.5-15.5)
[2020-01-23 07:39] LABS: ANION GAP 7 (6-22 (CALC)); BUN 58 mg/dL (8-23); BUN/CREATININE RATIO 60 (12-20 (CALC)); CARBON DIOXIDE 31 mmol/l (22-30); CHLORIDE 123 mmol/l (95-108); GFR 53 ML/MIN (>=60 (CALC)); GFR FOR AFR.AMER. > 60 ML/MIN (>=60 (CALC)); SODIUM 157 mmol/l (137-146)
[2020-01-23 07:40] LABS: POTASSIUM 3.7 mmol/l (3.5-5.1)
--- NOTE | 2020-01-23 07:40 | NUR ---
PT SLEEPING IN BED WITH BIPAP IN PLACE. A&O TO SELF, CURRENTLY NON VERBAL, UNABLE TO FOLLOW ANY COMMANDS AT THIS TIME. PT NOT OPENING EYES AT THIS TIME. +1 EDEMA NOTED TO BLE. PT ON AIR MATRESS. FINN CATHETER DRAINING VIA GRAVITY. COARSE BREATH SOUNDS HEARD UPON AUSCULTATION. ASSESSMENT COMPLETED. WILL CONTINUE TO MONITOR.
--- NOTE | 2020-01-23 08:25 | NUR ---
BIPAP REMOVED, PT PLACED ON HIGH FLOW NC @10L BY ERIS BUENROSTRO. PT TOLERATING WELL, OXYGEN LEVEL SUSTAINING 95-99%. WILL CONTINUE TO MONITOR.
--- NOTE | 2020-01-23 08:32 | NUR ---
ORAL CARE PROVIDED WITH WATER AND ORAL SWAB DENTIPS. LIP MOISTURIZER APPLIED. PT ABLE TO TAKE MEDICATIONS CRUSHED WITH VANILLA PUDDING. FOLLOWED BY A SMALL SIP OF WATER. PT ABLE TO OPEN EYES. FACE CLEANSED. WILL CONTINUE TO MONITOR.
--- NOTE | 2020-01-23 08:33 | NUR ---
BIPAP STANDBY. PLACED ON 10L HFNC
--- NOTE | 2020-01-23 12:38 | NUR ---
LOPRESSOR HELD FOR 1300 SCHEDULED DOSE DUE TO LOW BP 97/48.
--- NOTE | 2020-01-23 13:02 | NUR ---
ORAL CARE PROVIDED
--- NOTE | 2020-01-23 14:57 | NUR ---
ORAL CARE PROVIDED. PT CONSUMED SOME WATER WITH A 10 ML SYRINGE. PT STILL NOT AWAKE, UNABLE TO FOLLOW COMMANDS. NO DISTRESS NOTED. CONTINUE TO MONITOR.
--- NOTE | 2020-01-23 15:21 | NUR ---
SAMPLE OBTAINED FOR ORDERED BMP. BLUE LUMEN USED FOR SAMPLE, FLUSHED WITH 10CC NS, ASPIRATED AND DISCARDED 10 CC OF BLOOD, AND OBTAINED SAMPLE. LUMEN FLUSHED WITH 10 CC OF NS AFTER SAMPLE WAS OBTAINED.
[2020-01-23 16:03] LABS: CREATININE 1.1 mg/dL (0.5-1.0); POTASSIUM 3.9 mmol/l (3.5-5.1)
--- NOTE | 2020-01-23 17:53 | NUR ---
CENTRAL LINE DRESSING CHANGED WITH THE ASSISTANCE OF EVELYN LEE. DARIAN/FINN CARE PROVIDED. NO BM TODAY. FACE FLUSHED IN APPEARANCE BUT NOT FEBRILE. PT STILL NOT FOLLOWING COMMANDS. 200 OUTPUT NOTED IN FINN CATHETER.
--- NOTE | 2020-01-23 19:30 | NUR ---
eyes closed. no response to verbal stimuli. o2 cont @ 10 l/m high flow per nc. office clin asst shows sinus rhythm hr 80. rt sub tlc in place. d5w infusing @ 50cchr. no po intake. castorena cath in place. urine clear dk yellow. bilat scd, fall & droplet precautions cont. turned & repositioned. requires total care for all needs.
--- NOTE | 2020-01-23 21:05 | NUR ---
ivf increased to 75cchr.
--- NOTE | 2020-01-23 21:45 | NUR ---
sao2 shows 81%. gasping respirations. requested rt to check. rt began bipap.
--- NOTE | 2020-01-23 22:00 | NUR ---
bp 84/49. bipap cont. school bus monitor shows sinus rhythm freq junctional escape beats hr 62.
[2020-01-24 00:01] VITALS: BP 87/28
--- NOTE | 2020-01-24 00:01 | NUR ---
eyes closed. bipap cont. nad. telemetry monitor shows sinus rhythm occas jct'l escape beats hr 62.
--- NOTE | 2020-01-24 01:45 | NUR ---
abd bloated. bipap removed per rt. 100% nrb began.
[2020-01-24 02:00] VITALS: BP 108/41
--- NOTE | 2020-01-24 02:00 | NUR ---
nad. nrb conts. oup low tonight.
[2020-01-24 03:00] VITALS: BP 90/44
[2020-01-24 04:00] VITALS: BP 105/36
--- NOTE | 2020-01-24 04:40 | NUR ---
blood drawn & sent to lab. xray here. pcxr obtained.
[2020-01-24 06:00] VITALS: BP 84/37
--- NOTE | 2020-01-24 06:01 | NUR ---
resps remains shallow. nrb & abd bloatng cont.
[2020-01-24 06:10] LABS: HEMATOCRIT 42.6 % (37.0-47.0); HEMOGLOBIN 11.2 g/dl (12.0-16.0); IMMATURE GRANULOCYTES 1.2 % (0.0-5.0); MEAN CELL VOLUME 104.2 fL CALC (80.0-100.0); MEAN CORPUSCULAR HGB 27.4 pG CALC (26.0-32.0); MEAN CORPUSCULAR HGB CONC 26.3 g/dL CAL (32.0-36.0); NEUT# 24.26 thou/uL (2.00-7.15); RED BLOOD COUNT 4.09 mill/uL (4.20-5.60); RED CELL DISTRI WIDTH 19.3 % (11.5-15.5)
[2020-01-24 06:26] LABS: CREATININE 1.8 mg/dL (0.5-1.0)
--- NOTE | 2020-01-24 06:46 | NUR ---
PT REPORT RECEIVED, PT RESTING QUIETLY ON BED, WITH NON REBREATHER ON, ABDOMEN DISTENDED, AND IV FLUIDS INFUSING AT 75 CC/HR
[2020-01-24 06:52] LABS: C-REACTIVE PROTEIN 17.1 mg/dL (0-0.9)
--- NOTE | 2020-01-24 07:20 | NUR ---
PTS MONITER BEGAN SHOWING SIGNS OF ASYSTOLE, WENT TO PTS ROOM, COULD NOT GET A OXYGEN LEVEL, COULD NOT FEEL A PULSE, OR HEAR A HEART BEAT. PT NOT RESPONDING TO ANY STIMULI. DR. VASQUEZ NOTIFIED BY PHONE, REQUESTED TO CALL DAUGHTER AND INFORM HER OF MOTHERS CONDITION.
--- NOTE | 2020-01-24 07:25 | NUR ---
DR. RAMÍREZ IN ICU WITH ULTRASOUND, LISTENED FOR HEART BEAT UNABLE TO DETECT ANY MOVEMENT. AYSTOLE REMAINS ON MONITER, NO RESPIRATIONS. TIME OF CALLED AT 0508
--- NOTE | 2020-01-24 07:32 | NUR ---
FAMILY NOTIFIED, DAUGHTER VERY UPSET, WILL CALL BACK WITH A HOME REQUEST
--- NOTE | 2020-01-24 07:55 | NUR ---
CERTIFICATE COMPLETED, , CALLED [facility] AND WAS INFORMED BY MAGUE THAT PT IS NOT A CANDIDATE, AND CAN BE SENT TO HOME.
--- NOTE | 2020-01-24 08:48 | NUR ---
DAUGHTER RETURNED CALL AND STATES FAMILY HAS DECIDED ON [facility] HOME. [facility] JEWE[facility] CALLED AND WILL SEND SOMEONE TO [facility]
--- NOTE | 2020-01-24 10:06 | NUR ---
TRIPLE LUMEN REMOVED, WAITING FOR [facility]
== END 2020-01-24 11:10 | disposition expired | DRG 193 ==
LOC: ED 12:41 → ED-I 16:10 → ED 16:14 → MS2 16:15 → ICU 01-17 09:48
PROVIDERS: Emergency Medicine; Nurse Practitioner; ADMIT Internal Medicine; ATTEND Internal Medicine
PROC: 5A09457 Assistance with Respiratory Ventilation, 24-96 Consecutive Hours, Continuous Positive Airway Pressure (ICD-10-PCS; principal; 2020-01-17)
PROC: 02HV33Z Insertion of Infusion Device into Superior Vena Cava, Percutaneous Approach (ICD-10-PCS; 2020-01-22)
DX: J10.00 Influenza due to other identified influenza virus with unspecified type of pneumonia (principal); J96.01 Acute respiratory failure with hypoxia; N17.9 Acute kidney failure, unspecified; E87.0 Hyperosmolality and hypernatremia; I11.0 Hypertensive heart disease with heart failure; J69.0 Pneumonitis due to inhalation of food and vomit; I50.9 Heart failure, unspecified; I48.0 Paroxysmal atrial fibrillation; J44.9 Chronic obstructive pulmonary disease, unspecified; I35.0 Nonrheumatic aortic (valve) stenosis; I95.9 Hypotension, unspecified; E78.5 Hyperlipidemia, unspecified; E86.0 Dehydration; I89.0 Lymphedema, not elsewhere classified; M06.9 Rheumatoid arthritis, unspecified; M40.209 Unspecified kyphosis, site unspecified; G89.4 Chronic pain syndrome; Z86.73 Personal history of transient ischemic attack (TIA), and cerebral infarction without residual deficits; Z87.891 Personal history of nicotine dependence; Z66 Do not resuscitate; Z20.828 Contact with and (suspected) exposure to other viral communicable diseases
CPT/HCPCS: J0692; J1160; J1650